=== PATIENT | male | born 1960 | race Hispanic/Latino ===

== ENCOUNTER 2017-06-12 13:15 | Inpatient (IN) | payer OTHER ==
[~2017-06-12] VITALS: Ht 165.1 cm; Wt 83.0 kg
--- NOTE | 2017-06-12 14:37 | Diagnostic Imaging Report ---
PROCEDURE: Frontal and lateral views of the chest. COMPARISON: None. INDICATIONS: SOB, PLEURAL EFFUSION, PLATE LIKE ATELACTASIS FINDINGS: Lines/tubes: None. Lungs: Mild prominence of the pulmonary vasculature. Bibasilar subsegmental atelectasis. Pleura: There is no pneumothorax. Bilateral pleural effusions. Heart and mediastinum: The cardiac silhouette is nonenlarged. Bones: No acute bony abnormality. IMPRESSION: 1. Bilateral small pleural effusions. 2. Mild bilateral pulmonary venous congestion. Amrita Yuan M.D. Dictated by: Amrita Yuan M.D. on 06/12/2017 at 14:45 Electronically approved by: Amrita Yuan M.D. on 06/12/2017 at 14:45
[2017-06-12 14:51] LABS: BASOPHILS # (AUTO) 0.1 (0.0-0.1); BASOPHILS % 0.7 % (0.0-1.0); EOSINOPHILS # (AUTO) 0.1 (0.0-0.4); EOSINOPHILS % 1.1 % (0.0-6.0); HEMATOCRIT 45.7 % (38.2-49.6); HEMOGLOBIN 16.2 g/dL (14.0-18.0); LYMPHOCYTES % 21.7 % (18.0-39.1); MEAN CORPUSCULAR HEMOGLOBIN 32.8 pg (28-32); MEAN CORPUSCULAR HGB CONC 35.4 g/dL (31-35); MEAN CORPUSCULAR VOLUME 92.5 fL (81-99); MONOCYTES # (AUTO) 0.6 (0.2-0.8); MONOCYTES % 6.7 % (4.4-11.3); NEUTROPHILS # (AUTO) 6.4 (2.1-6.9); NEUTROPHILS % 69.5 % (38.7-80.0); PLATELET COUNT 279 x10e3/uL (140-360); RED BLOOD COUNT 4.94 x10e6/uL (4.3-5.7); RED CELL DISTRIBUTION WIDTH 12.5 % (11.7-14.4)
[2017-06-12 14:58] LABS: INR 0.98; PROTHROMBIN TIME 13.5 seconds (11.9-14.5)
[2017-06-12 14:59] LABS: PARTIAL THROMBOPLASTIN TIME 33.5 seconds (23.8-35.5)
[2017-06-12 15:05] LABS: ALANINE AMINOTRANSFERASE 44 IU/L (0-55); ALBUMIN 3.5 g/dL (3.5-5.0); ALBUMIN/GLOBULIN RATIO 0.7 (0.8-2.0); ALKALINE PHOSPHATASE 70 IU/L (40-150); ANION GAP 16.3 mmol/L (8-16); BLOOD UREA NITROGEN 25 mg/dL (7-26); BUN/CREATININE RATIO 21 (6-25); CALCIUM 9.7 mg/dL (8.4-10.2); CARBON DIOXIDE 25 mmol/L (22-29); CHLORIDE 97 mmol/L (98-107); CREATINE KINASE 82 IU/L (30-200); CREATININE, SERUM 1.17 mg/dL (0.72-1.25); EST GLOMERULAR FILTRATION RATE > 60 ML/MIN (60-); GLUCOSE 264 mg/dL (74-118); POTASSIUM 4.3 mmol/L (3.5-5.1); SODIUM 134 mmol/L (136-145)
[2017-06-12 15:17] LABS: TROPONIN I 18.285 ng/mL (0-0.300)
[2017-06-12] MEDS ORDERED: ENOXAPARIN SODIUM INJ 100 MG/ML SYR SC STA (16:15)
[2017-06-12] MEDS ORDERED: ENOXAPARIN SODIUM INJ 100 MG/ML SYR SC SCH (17:15)
[2017-06-12] MEDS ORDERED: FUROSEMIDE INJ 10 MG/ML 4 ML VIAL IV ONE (17:15)
[2017-06-12] MEDS ORDERED: METFORMIN HCL500 MG PO (18:28)
[2017-06-12] MEDS ORDERED: GLYBURIDE5 MG PO (18:45)
[2017-06-12] MEDS ORDERED: ASPIRIN 81 MG CHEW TAB PO ONE (19:30)
[2017-06-12 20:24] LABS: FREE THYROXINE INDEX 2.7108 (1.4-3.8); THYROID STIMULATING HORMONE 2.942 uIU/mL (0.350-4.940)
[2017-06-12] MEDS ORDERED: METOLAZONE 5 MG TAB PO ONE (20:30)
[2017-06-12] MEDS ORDERED: FUROSEMIDE INJ 10 MG/ML 2 ML VIAL IV ONE (20:30)
[2017-06-12] MEDS ORDERED: POTASSIUM CHLORIDE 20 MEQ TAB CR PO ONE (20:30)
[2017-06-12 22:45] LABS: CREATINE KINASE MB 2.4 ng/mL (0.00-5.00)
[2017-06-12 22:48] LABS: TROPONIN I 22.834 ng/mL (0-0.300)
[2017-06-13 06:11] LABS: ANION GAP 15.9 mmol/L (8-16); BLOOD UREA NITROGEN 23 mg/dL (7-26); BUN/CREATININE RATIO 24 (6-25); CARBON DIOXIDE 25 mmol/L (22-29); CHLORIDE 99 mmol/L (98-107); CHOL/HDL RATIO 8.4 (3.9-4.7); CHOLESTEROL 202 MD/DL (0-199); CREATINE KINASE 78 IU/L (30-200); CREATININE, SERUM 0.96 mg/dL (0.72-1.25); EST GLOMERULAR FILTRATION RATE > 60 ML/MIN (60-); GLUCOSE 135 mg/dL (74-118); HDL CHOLESTEROL 24 MG/DL (40-60); LDL CHOLESTEROL 142 MG/DL (60-130); POTASSIUM 3.9 mmol/L (3.5-5.1); SODIUM 136 mmol/L (136-145); TRIGLYCERIDES 181 MG/DL (0-149)
[2017-06-13 06:24] LABS: TROPONIN I 24.162 ng/mL (0-0.300)
[2017-06-13] MEDS: ENOXAPARIN INJ 80 MG/0.8 ML SYR SC SCH ×2 (06:48→19:03)
--- NOTE | 2017-06-13 07:51 | Diagnostic Imaging Report ---
PROCEDURE: Frontal and lateral views of the chest. COMPARISON: Chest 2 views 06/12/2017. INDICATIONS: SHORTNESS OF BREATH FINDINGS: Lines/tubes: None. Lungs: Bibasilar airspace opacities. No parenchymal mass. Pleura: Small bilateral pleural effusions. No pneumothorax. Heart and mediastinum: The heart and the mediastinum are normal. Bones: No acute bony abnormality. Degenerative changes of the thoracic spine. IMPRESSION: Bibasilar airspace opacities likely represent a developing pneumonia. Dictated by: Rajesh Ramirez M.D. on 06/13/2017 at 8:00 Electronically approved by: Rajesh Ramirez M.D. on 06/13/2017 at 8:00
[2017-06-13 08:04] VITALS: BP 102/72
--- NOTE | 2017-06-13 08:14 | Consultation ---
DATE OF CONSULTATION: June 12, 2017 CLINICAL HISTORY: This is a 56-year-old man, seen in the emergency room at [facility] because of congestive heart failure, elevated troponin of 18 without chest pains. This patient has no previous cardiac history. Approximately 5 days ago, he noticed severe dyspnea with exertion orthopnea, PND, but no chest pains. He failed to improve, so he came to the emergency room, was found to have congestive heart failure. Troponin I was 18. EKG showed sinus tachycardia around 118 beats per minute, nonspecific ST changes. CK and CK-MB were negative. Chest x-ray showed bilateral small pleural effusions. Patient is being admitted for further evaluation and treatment. PAST MEDICAL HISTORY: Remarkable for absence of surgeries or other hospitalizations. He has history of diabetes, but no hypertension or hyperlipidemia. He is on glyburide and metformin at home. PERSONAL AND SOCIAL HISTORY: He drinks approximately 64 ounces of beer per day. Denies smoking. Works in construction. FAMILY HISTORY: Significant for diabetes. REVIEW OF SYSTEMS: Noncontributory. PHYSICAL EXAMINATION GENERAL: He is alert and coherent. VITAL SIGNS: Stable. CARDIAC: Jugular veins are not distended. S1 and S2 are regular and rapid. LUNGS: Show bilateral rales. ABDOMEN: Soft. Bowel sounds are present. EXTREMITIES: Show 1+ pitting edema. LABORATORY STUDIES: The white count is 9,200, hemoglobin 15.2, platelet count is 279,000. Electrolytes are sodium 134, potassium 4.3, BUN 25, creatinine 1.1. Total bilirubin 1.6, SGOT 45. Troponin 18.2. CK/CK-MB normal. BNP 1352. Albumin is 3.5. IMPRESSION 1. Congestive heart failure of undetermined etiology. 2. Troponin of 18. Consider myocarditis including viral and alcoholic. Consider non-ST elevation myocardial infarction. 3. Diabetes. 4. Alcoholism. RECOMMENDATIONS: Discontinue alcohol. Diuresis. Serial enzymes, EKG, echocardiogram. Consider cardiac catheterization. Thank you very much. Job#: [id number] GE cc:MP CARRERO MD
[2017-06-13] MEDS ORDERED: LISINOPRIL 10 MG TAB PO SCH (09:00)
[2017-06-13] MEDS ORDERED: DEXTROSE 50% SYRINGE 50 ML IV PRN (09:00)
[2017-06-13] MEDS ORDERED: METOLAZONE 5 MG TAB PO ONE (09:15)
[2017-06-13] MEDS: METOPROLOL TARTRATE 25 MG TAB PO SCH ×2 (09:37→20:30)
[2017-06-13] MEDS: FUROSEMIDE 40 MG TAB PO SCH (09:37)
[2017-06-13] MEDS: ASPIRIN 325 MG TAB EC PO SCH (09:37)
--- NOTE | 2017-06-13 09:45 | Cardiology Report ---
DATE OF STUDY: ECHOCARDIOGRAM M-MODE: Dilated left atrium. Dilated left ventricle. Diminished left ventricular contractility. Aortic sclerosis. Normal mitral valve. No pericardial effusion. SECTOR SCAN: Dilated left atrium and left ventricle severely diminished left ventricular contractility. Ejection fraction is approximately 20%. Aortic valve sclerotic. Mitral and tricuspid valves are normal. There is no pericardial effusion. CAROTID DOPPLER STUDY WITH COLOR: Trace tricuspid regurgitation. CONCLUSIONS 1. Dilated left ventricle with severely diminished left ventricular contractility. Estimated ejection fraction 20%. 2. Trace mitral regurgitation with dilated left atrium. 3. Trace tricuspid regurgitation. 4. Aortic sclerosis without stenosis. Job#: [id number] RI cc:MP CARRERO MD
[2017-06-13] MEDS ORDERED: CHLORDIAZEPOXIDE HCL 25 MG CAP PO PRN (11:15)
--- NOTE | 2017-06-13 12:14 | History and Physical ---
PRIMARY CARE PROVIDER: Local clinic near [facility]. CHIEF COMPLAINT: Shortness of breath. HISTORY OF PRESENT ILLNESS: Mr. Shields is a 56-year-old gentleman who presents with approximately a week of increasing shortness of breath, dyspnea with exertion and orthopnea, and paroxysmal nocturnal dyspnea. The patient has a history of diabetes only. He was diagnosed a year ago but has not taken any medication. He saw his doctor a week ago and was started on glyburide and metformin, which has made him feel bad. He has had progressive shortness of breath over the past week. He went to the clinic again and they sent him to the ER for evaluation. REVIEW OF SYSTEMS: He denies fever, chills, or weight loss. He denies sinus congestion or sore throat. He denies any chest pain, but has had shortness of breath, dyspnea with exertion, and orthopnea. He denies abdominal pain, nausea, vomiting, or melena. He denies dysuria or flank pain. He denies rash or pruritus. He denies joint pain or swelling. He denies bleeding or bruising. He denies headache, vertigo, or loss of consciousness. He denies depression, agitation, homicide or suicidal ideation. PAST MEDICAL HISTORY: Significant for type 2 diabetes as noted. The patient is supposed to be on glyburide and metformin for that. PAST SURGICAL HISTORY: He has no surgical history. He has never been in the hospital before today. FAMILY HISTORY: Unremarkable. He has some scattered diabetes in his family. He denies premature heart disease. SOCIAL HISTORY: The patient is . He is bilingual. Speaks good Swazi. He works in construction remodeling. He does not smoke but he drinks daily, 64 ounces of beer on average. He is generally independently functioning. PHYSICAL EXAM: PSYCHIATRIC: He is alert oriented times 3, with normal mood and affect. CONSTITUTIONAL: He has a normal body habitus. He is in no acute distress. VITAL SIGNS: Blood pressure 102/72. Pulse 80 and regular. Respiratory rate 18. O2 sat 96% on room air. Temperature 97.8. HEENT: His head is atraumatic. His eyes are anicteric with clear conjunctivae. Ears and nares are without erythema or discharge. Oropharynx is clear. NECK: Is supple. No mass or thyromegaly. LYMPHATIC SYSTEM: He has no palpable cervical, axillary, or inguinal adenopathy. CARDIOVASCULAR: His heart has a regular rate rhythm without murmur or extra sounds. He has no carotid bruit. He has no peripheral edema. He has palpable dorsal pedal pulses. RESPIRATORY: Reveal some diminished breath sounds and some rales at the bases. Otherwise clear with normal respiratory effort. GASTROINTESTINAL: His abdomen is soft without organomegaly, masses, or tenderness. He has normal bowel sounds present. CUTANEOUS: His skin is warm and dry to touch. No rash or skin breakdown. MUSCULOSKELETAL: His joints are in normal alignment without erythema or swelling. He has no calf tenderness. NEUROLOGIC: Exam is nonfocal with intact cranial nerves and no motor or sensory deficits. DIAGNOSTIC STUDIES: Chest x-ray yesterday showed mild pulmonary vascular congestion and bilateral small effusions. Today, the chest x-ray shows bibasilar air-space opacities, possible developing pneumonia. His echocardiogram today showed an ejection fraction of 25% to 30% with a dilated left ventricle and left atrial enlargement. His EKG shows sinus tach with some nonspecific lateral ST-T wave changes. His troponin 18.285, then 22.834, then 24.162. His BNP 1,352.2. Ammonia level 44. His cholesterol 202, HDL 24, LDL 142, triglyceride 181. His chemistry profile showed normal electrolytes, CO2 25, creatinine 1.17, BUN 25 for a normal GFR, calcium 9.7, glucose 264. His TSH 2.942, free T4 2.710. His transaminases: his bilirubin and AST are slightly elevated at 1.6 and 45; ALT normal at 44; alk phos normal at 70. His CBC shows a white count of 9.20 with a normal differential, hemoglobin 16.2, hematocrit 45.7, and platelet count 279 thousand. His coags are normal. IMPRESSION AND PLAN: 1. Acute [id number] myocardial infarction. Patient has been given aspirin, started on metoprolol, low-dose lisinopril, and Lipitor. Cardiology has been consulted and is planning for a left heart cath on Friday. 2. Decompensated [id number] systolic heart failure, based on his echocardiogram. The patient has received Lasix x2, started on Lasix daily. He is getting oxygen. Cardiology has been consulted, possibly either ischemic or viral or even potentially alcohol-induced cardiomyopathy. 3. Type 2 diabetes. At the moment, will continue sliding scale insulin. Hold oral medication for now. 4. Alcoholism. Will give p.r.n. p.o. Librium if the patient develops withdrawal symptoms. 5. For prophylaxis, the patient is on weight-based Lovenox and Protonix for deep vein thrombosis and gastrointestinal prophylaxis. Job#: [id number] IL
[2017-06-13] MEDS: LISINOPRIL 10 MG TAB PO SCH (13:04)
[2017-06-13] MEDS: INSULIN REGULAR, HUMAN 100 UNIT/1 ML 3ML VIAL SQ SCH ×3 (13:22→21:42)
[2017-06-13] MEDS: PANTOPRAZOLE SOD 40 MG TABEC PO SCH (13:22)
[2017-06-13] MEDS: ATORVASTATIN 20 MG TAB PO SCH (21:42)
[2017-06-14] MEDS: ENOXAPARIN INJ 80 MG/0.8 ML SYR SC SCH ×2 (05:35→18:44)
[2017-06-14 05:43] LABS: BASOPHILS # (AUTO) 0.1 (0.0-0.1); BASOPHILS % 0.8 % (0.0-1.0); EOSINOPHILS # (AUTO) 0.2 (0.0-0.4); HEMATOCRIT 41.5 % (38.2-49.6); HEMOGLOBIN 15.1 g/dL (14.0-18.0); LYMPHOCYTES # (AUTO) 2.2 (1.0-3.2); LYMPHOCYTES % 29.2 % (18.0-39.1); MEAN CORPUSCULAR HGB CONC 36.4 g/dL (31-35); MEAN CORPUSCULAR VOLUME 90.6 fL (81-99); MONOCYTES # (AUTO) 0.8 (0.2-0.8); MONOCYTES % 10.1 % (4.4-11.3); NEUTROPHILS # (AUTO) 4.4 (2.1-6.9); NEUTROPHILS % 57.6 % (38.7-80.0); PLATELET COUNT 244 x10e3/uL (140-360); RED BLOOD COUNT 4.58 x10e6/uL (4.3-5.7); RED CELL DISTRIBUTION WIDTH 12.4 % (11.7-14.4)
[2017-06-14 06:01] LABS: ANION GAP 16.8 mmol/L (8-16); BLOOD UREA NITROGEN 21 mg/dL (7-26); BUN/CREATININE RATIO 22 (6-25); CALCIUM 9.1 mg/dL (8.4-10.2); CARBON DIOXIDE 24 mmol/L (22-29); CHLORIDE 97 mmol/L (98-107); CREATININE, SERUM 0.94 mg/dL (0.72-1.25); EST GLOMERULAR FILTRATION RATE > 60 ML/MIN (60-); GLUCOSE 130 mg/dL (74-118); MAGNESIUM 1.7 MG/DL (1.3-2.1); POTASSIUM 3.8 mmol/L (3.5-5.1); SODIUM 134 mmol/L (136-145)
--- NOTE | 2017-06-14 06:49 | Diagnostic Imaging Report ---
CHEST SINGLE (PORTABLE), 06/14/2017 5:00 AM Technique: CHEST SINGLE (PORTABLE) Comparison: None available. Clinical history: CHF versus pneumonia Findings: See Impression Impression: 1. Mildly enlarged cardiac silhouette. 2. Diffuse lower lung opacities, favor edema with bibasilar atelectasis and layering effusions. Cannot exclude underlying infection in the proper clinical context. Signed by: Dr Nancy Ramos MD on 06/14/2017 6:46 AM
[2017-06-14 07:17] VITALS: BP 98/73
[2017-06-14] MEDS: INSULIN REGULAR, HUMAN 100 UNIT/1 ML 3ML VIAL SQ SCH ×4 (07:30→21:43)
[2017-06-14] MEDS: PANTOPRAZOLE SOD 40 MG TABEC PO SCH (07:30)
[2017-06-14] MEDS: ASPIRIN 325 MG TAB EC PO SCH (08:17)
[2017-06-14] MEDS: LISINOPRIL 10 MG TAB PO SCH (08:17)
[2017-06-14] MEDS: FUROSEMIDE 40 MG TAB PO SCH (08:17)
[2017-06-14] MEDS: METOPROLOL TARTRATE 25 MG TAB PO SCH ×2 (08:17→21:42)
[2017-06-14] MEDS: METOCLOPRAMIDE HCL 10 MG/2ML VIAL IV SCH ×3 (11:34→21:42)
[2017-06-14 11:42] VITALS: BP 100/71
[2017-06-14 20:21] VITALS: BP 141/66
[2017-06-14] MEDS: ATORVASTATIN 20 MG TAB PO SCH (21:43)
[2017-06-15] MEDS: ENOXAPARIN INJ 80 MG/0.8 ML SYR SC SCH ×2 (05:50→18:28)
[2017-06-15 06:26] LABS: BASOPHILS # (AUTO) 0.1 (0.0-0.1); BASOPHILS % 0.9 % (0.0-1.0); EOSINOPHILS # (AUTO) 0.2 (0.0-0.4); EOSINOPHILS % 2.4 % (0.0-6.0); HEMATOCRIT 42.1 % (38.2-49.6); HEMOGLOBIN 15.1 g/dL (14.0-18.0); LYMPHOCYTES % 26.9 % (18.0-39.1); MEAN CORPUSCULAR HEMOGLOBIN 32.5 pg (28-32); MEAN CORPUSCULAR HGB CONC 35.9 g/dL (31-35); MEAN CORPUSCULAR VOLUME 90.5 fL (81-99); MONOCYTES # (AUTO) 0.8 (0.2-0.8); MONOCYTES % 10.7 % (4.4-11.3); NEUTROPHILS # (AUTO) 4.4 (2.1-6.9); NEUTROPHILS % 58.8 % (38.7-80.0); PLATELET COUNT 253 x10e3/uL (140-360); RED BLOOD COUNT 4.65 x10e6/uL (4.3-5.7); RED CELL DISTRIBUTION WIDTH 12.1 % (11.7-14.4)
[2017-06-15 06:43] LABS: BLOOD UREA NITROGEN 19 mg/dL (7-26); BUN/CREATININE RATIO 18 (6-25); CALCIUM 9.2 mg/dL (8.4-10.2); CARBON DIOXIDE 27 mmol/L (22-29); CHLORIDE 94 mmol/L (98-107); CREATININE, SERUM 1.06 mg/dL (0.72-1.25); EST GLOMERULAR FILTRATION RATE > 60 ML/MIN (60-); GLUCOSE 105 mg/dL (74-118); SODIUM 131 mmol/L (136-145)
[2017-06-15] MEDS: INSULIN REGULAR, HUMAN 100 UNIT/1 ML 3ML VIAL SQ SCH ×4 (07:19→20:34)
[2017-06-15] MEDS: METOCLOPRAMIDE HCL 10 MG/2ML VIAL IV SCH ×2 (08:11→20:49)
[2017-06-15] MEDS: PANTOPRAZOLE SOD 40 MG TABEC PO SCH (08:12)
[2017-06-15] MEDS: FUROSEMIDE 40 MG TAB PO SCH (08:32)
[2017-06-15] MEDS: METOPROLOL TARTRATE 25 MG TAB PO SCH ×2 (08:32→20:37)
[2017-06-15] MEDS: ASPIRIN 325 MG TAB EC PO SCH (08:32)
[2017-06-15] MEDS: LISINOPRIL 10 MG TAB PO SCH (08:32)
[2017-06-15] MEDS ORDERED: LISINOPRIL 10 MG TAB PO SCH (09:00)
[2017-06-15 12:26] VITALS: BP 76/50
[2017-06-15 13:01] VITALS: BP 76/50
[2017-06-15 16:19] VITALS: BP 81/51
[2017-06-15] MEDS: SODIUM CHLORIDE 0.9% 1000ML 1,000 ML IV SCH (16:45)
[2017-06-15] MEDS: ATORVASTATIN 20 MG TAB PO SCH (20:37)
[2017-06-15 20:45] VITALS: BP 81/51
[2017-06-16] VITALS (8 sets, daily range): BP systolic 81–98; BP diastolic 50–59
[2017-06-16] MEDS: SODIUM CHLORIDE 0.9% 1000ML 1,000 ML IV SCH ×3 (01:47→16:37)
[2017-06-16] MEDS: ENOXAPARIN INJ 80 MG/0.8 ML SYR SC SCH ×2 (05:10→17:42)
[2017-06-16 06:29] LABS: BASOPHILS % 0.5 % (0.0-1.0); EOSINOPHILS # (AUTO) 0.1 (0.0-0.4); EOSINOPHILS % 1.5 % (0.0-6.0); HEMATOCRIT 38.1 % (38.2-49.6); HEMOGLOBIN 13.9 g/dL (14.0-18.0); LYMPHOCYTES # (AUTO) 1.8 (1.0-3.2); LYMPHOCYTES % 21.3 % (18.0-39.1); MEAN CORPUSCULAR HEMOGLOBIN 32.7 pg (28-32); MEAN CORPUSCULAR HGB CONC 36.5 g/dL (31-35); MEAN CORPUSCULAR VOLUME 89.6 fL (81-99); MONOCYTES # (AUTO) 0.7 (0.2-0.8); MONOCYTES % 8.7 % (4.4-11.3); NEUTROPHILS # (AUTO) 5.7 (2.1-6.9); NEUTROPHILS % 67.6 % (38.7-80.0); PLATELET COUNT 254 x10e3/uL (140-360); RED BLOOD COUNT 4.25 x10e6/uL (4.3-5.7); RED CELL DISTRIBUTION WIDTH 12.1 % (11.7-14.4)
[2017-06-16 06:49] LABS: CALCIUM 8.8 mg/dL (8.4-10.2); CREATININE, SERUM 1.82 mg/dL (0.72-1.25); MAGNESIUM 2.1 MG/DL (1.3-2.1)
[2017-06-16] MEDS: INSULIN REGULAR, HUMAN 100 UNIT/1 ML 3ML VIAL SQ SCH ×4 (07:30→21:00)
[2017-06-16] MEDS ORDERED: LIDOCAINE HCL 2% LOCAL 20 ML VIAL ONE (07:32)
[2017-06-16] MEDS ORDERED: HEPARIN SOD (PORCINE) 1000 UNIT/ML 30ML ONE (07:32)
[2017-06-16] MEDS ORDERED: IOPAMIDOL 370 MG/ML 200 ML INFUS..BTL INJ ONE (07:33)
[2017-06-16] MEDS ORDERED: SODIUM CHLORIDE 0.9% 1000ML 0 ML ONE (07:33)
[2017-06-16] MEDS ORDERED: HEPARIN SOD/SOD CHLORIDE 2,000 ML ONE (07:33)
[2017-06-16] MEDS ORDERED: NITROGLYCERIN/D5W 200 MCG/ML 0 ML ONE (07:33)
[2017-06-16] MEDS ORDERED: MIDAZOLAM HCL 2 MG/2 ML VIAL ONE (08:42)
[2017-06-16] MEDS ORDERED: FENTANYL CITRATE/PF 100MCG/2 ML INJ ONE (08:42)
[2017-06-16 08:53] LABS: CREATININE, SERUM 1.56 mg/dL (0.72-1.25)
[2017-06-16] MEDS ORDERED: LISINOPRIL 10 MG TAB PO SCH (09:00)
[2017-06-16] MEDS ORDERED: FUROSEMIDE 40 MG TAB PO SCH (09:00)
[2017-06-16] MEDS ORDERED: LISINOPRIL 2.5 MG TAB PO SCH (09:00)
[2017-06-16] MEDS: FUROSEMIDE 20 MG TAB PO SCH (10:20)
[2017-06-16] MEDS: METOCLOPRAMIDE HCL 10 MG/2ML VIAL IV SCH ×4 (10:20→22:07)
[2017-06-16] MEDS: ASPIRIN 325 MG TAB EC PO SCH (10:20)
[2017-06-16] MEDS: ATORVASTATIN 40 MG TAB PO SCH (22:07)
[2017-06-16] MEDS: METOPROLOL TARTRATE 25 MG TAB PO SCH (22:08)
[2017-06-17] VITALS (7 sets, daily range): BP systolic 93–118; BP diastolic 57–64
--- NOTE | 2017-06-17 02:27 | Consultation ---
DATE OF CONSULTATION: June 16, 2017 DATE OF : 1960 REQUESTING PHYSICIAN: Dr. Evelio Pavon REASON FOR CONSULTATION: Multivessel coronary evaluation for coronary artery bypass. HISTORY OF PRESENT ILLNESS: This is a 56-year-old gentleman, who presented to the emergency room at [facility] with complaints of increased shortness of breath while at his home. He states this is the first episode of this and states that he was in his usual health prior to this episode, no cough, no wheeze. No fever, chills. No nausea, vomiting. Denies any chest pain. The patient has not had any previous coronary artery disease or any cardiac history. He states that the shortness of breath episode occurred while he was doing exertion at home. So he was brought to [facility] for further evaluation. Upon arrival, patient was found to have congestive heart failure. His presenting BNP was 13.52. He had elevated troponin of 18.2, CK-MB of 2.7, CK of 82. He was ruled in for a non-STEMI. His chest x-ray shows small bilateral effusions. He underwent a left heart catheterization with Dr. Pavon, which showed severe 3-vessel coronary artery disease. He had an echocardiogram, which showed dilated left ventricle and severely diminished left ventricular contraction with an EF of 20%. Trace mitral regurg with a dilated left atrium, trace tricuspid regurg, and aortic sclerosis was noted. The patient reports he said he was told he was diabetic a few years ago. Denies taking any medication for this. He does have family history of diabetes. States that he works construction and has been in his usual state of health prior to this episode 5 days ago before his admission. PAST MEDICAL HISTORY: Positive for diabetes for which he stopped his medication. PAST SURGICAL HISTORY: Denies any surgical history. This is the 1st hospitalization. FAMILY HISTORY: Positive for some diabetes in both parents. SOCIAL HISTORY: He lives with his family. He does report alcohol daily, 2 to 3 beers. Denies any smoking. 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 REVIEW OF SYSTEMS GENERAL: Negative for any fatigue or malaise. HEENT: No decreased vision, decreased hearing. CARDIAC: Negative for any chest pain or palpitations. RESPIRATORY: Positive for shortness of breath upon admission. Shortness of breath was worse with exertion, relieved with rest. Not associated with palpitations or radiation. GI: No constipation or diarrhea. : No hematuria, dysuria. ENDOCRINE: No polyuria or polydipsia. INFECTIOUS: No fevers or sweating. ALL OTHER REVIEW OF SYSTEMS: Negative. PHYSICAL EXAM VITALS: Blood pressure 85/50. Temperature 98.2. Respirations 16. Pulse 80. GENERAL: He is alert and oriented. No acute distress. Son is at bedside. HEENT: Extraocular movements are full. Mucous membranes moist. NECK: Supple, nontender. No JVD. CARDIAC: Regular rate and rhythm. Normal S1/S2. No murmur noted. LUNGS: Decreased breath sounds at the bases. No crackles or wheeze. ABDOMEN: Soft, nontender. No hepatosplenomegaly. SKIN: No rashes or nonhealing ulcers. MUSCULOSKELETAL: No joint pain or joint swelling. Appears full range of motion in all joints. NEUROLOGIC: He is alert and oriented. Normal affect. IMAGING: Recent chest x-ray shows diffuse lower lung bibasilar atelectasis with possible effusions. LAB WORK: Hemoglobin A1c is 7.4. BNP is trending downwards from 1352 to 630. His troponin-I 18.25, repeat 24.16. His sodium 134, potassium 4.00, BUN is 34, creatinine is 15.6. AST 45, ALT is 44, alk phos 70. White count 9.2, hemoglobin 16.2, hematocrit 45.7, platelet count 279,000. Cardiac catheterization as noted showed a 99% to 100% RCA, with 100% distal occlusion collaterals, a 99% to 100% LAD, and a 90% circ with history 70% mid circ, with an occluded OM. ASSESSMENT 1. Congestive heart failure with ejection fraction of 20% with elevated B-type natriuretic peptide upon admission. Small bilateral pleural effusions. 2. Multivessel coronary artery disease. 3. Non-ST segment elevation myocardial infarction. 4. Diabetes, noncompliant. PLAN: Had a long discussion with the patient and his son regarding his multivessel coronary artery disease and his congestive heart failure. Discussed the high risk for coronary event and the need for coronary artery bypass. Will obtain carotid Dopplers for further assessment of his risk factors, and further recommendations to follow. GARRET Johnson Pt seen & examined. I agree with the above note,. 56 yo diabetic man admitted with IL by Dr Sandy. Had about 1 week of MELGAR, PND & orthopnea but no previous symptoms. Cardiac enzymes elevated on admission. Echo showed EF about 20%. Cath by Dr Pavon showed severe 3 vessel CAD. Physical exam as above. CABG discussed with pt & family. They are considering options. -Demarcus Jason MD Job#: [id number] CQ MTDD
[2017-06-17] MEDS: ENOXAPARIN INJ 80 MG/0.8 ML SYR SC SCH ×2 (05:31→18:00)
[2017-06-17 06:42] LABS: BASOPHILS % 0.4 % (0.0-1.0); EOSINOPHILS # (AUTO) 0.2 (0.0-0.4); EOSINOPHILS % 2.1 % (0.0-6.0); HEMATOCRIT 37.4 % (38.2-49.6); HEMOGLOBIN 13.4 g/dL (14.0-18.0); LYMPHOCYTES # (AUTO) 2.1 (1.0-3.2); LYMPHOCYTES % 25.8 % (18.0-39.1); MEAN CORPUSCULAR HEMOGLOBIN 32.9 pg (28-32); MEAN CORPUSCULAR HGB CONC 35.8 g/dL (31-35); MEAN CORPUSCULAR VOLUME 91.9 fL (81-99); MONOCYTES # (AUTO) 0.9 (0.2-0.8); MONOCYTES % 10.8 % (4.4-11.3); NEUTROPHILS # (AUTO) 4.9 (2.1-6.9); NEUTROPHILS % 60.7 % (38.7-80.0); PLATELET COUNT 228 x10e3/uL (140-360); RED BLOOD COUNT 4.07 x10e6/uL (4.3-5.7); RED CELL DISTRIBUTION WIDTH 11.9 % (11.7-14.4)
[2017-06-17 07:06] LABS: ANION GAP 16.2 mmol/L (8-16); BLOOD UREA NITROGEN 26 mg/dL (7-26); BUN/CREATININE RATIO 26 (6-25); CARBON DIOXIDE 24 mmol/L (22-29); CHLORIDE 99 mmol/L (98-107); EST GLOMERULAR FILTRATION RATE > 60 ML/MIN (60-); GLUCOSE 97 mg/dL (74-118); POTASSIUM 4.2 mmol/L (3.5-5.1); SODIUM 135 mmol/L (136-145)
[2017-06-17] MEDS: INSULIN REGULAR, HUMAN 100 UNIT/1 ML 3ML VIAL SQ SCH ×4 (07:30→21:00)
[2017-06-17] MEDS: METOCLOPRAMIDE HCL 10 MG/2ML VIAL IV SCH ×4 (09:00→21:00)
[2017-06-17] MEDS: METOPROLOL TARTRATE 25 MG TAB PO SCH ×2 (10:00→21:23)
[2017-06-17] MEDS: FUROSEMIDE 20 MG TAB PO SCH (10:00)
[2017-06-17] MEDS: ASPIRIN 325 MG TAB EC PO SCH (10:00)
--- NOTE | 2017-06-17 10:27 | Cardiology Report ---
DATE OF STUDY: DOPPLER SCAN OF THE CAROTID Left carotid artery shows moderate intimal thickening and plaquing without high-grade stenosis or flow impairment. Left vertebral flow appears to be antegrade. Right carotid artery shows mild intimal thickening and plaquing without high-grade stenosis or flow impairment. Right vertebral flow appears to be antegrade. CONCLUSIONS 1. No high-grade stenosis bilaterally. 2. Moderate intimal thickening and plaquing bilaterally. 3. Vertebral flow appears to be normal direction bilaterally. Job#: [id number] RI cc:MD MP VALLES MD
[2017-06-17] MEDS: ATORVASTATIN 40 MG TAB PO SCH (21:22)
[2017-06-18] VITALS: BP 111/57
--- NOTE | 2017-06-18 00:02 | Progress Note ---
DATE: June 17, 2017 REASON FOR NOTE: Coronary artery disease. SUBJECTIVE: Patient sitting up in bed and breathing comfortably. Some minimal dyspnea. No chest pain. OBJECTIVE: VITAL SIGNS: Blood pressure 130/70, pulse 80 and regular, respirations 16 and unlabored. NECK: Supple and nontender. No JVD. CARDIAC: Shows a regular rate and rhythm. There is a normal S1 and S2. There is no S3, S4, rub, or murmur. LUNGS: Have some scattered crackles bilaterally. ABDOMEN: Globoid and benign. Good bowel sounds. No hepatosplenomegaly. BACK: No CVA tenderness. No muscular spasm. EXTREMITIES: No cyanosis, clubbing, or edema. REVIEW OF SYSTEMS: GENERAL: Negative for fatigue and malaise. CARDIAC: Negative for chest pain or palpitations. PULMONARY: Positive for some slight shortness of breath. No wheezing. Positive for PND and orthopnea. GI: Negative for change in bowel habits, constipation, or diarrhea. : Negative for hematuria or dysuria. EXTREMITIES: Negative for cyanosis or clubbing. LABORATORIES: White count 8.5, hemoglobin 13.4, hematocrit 37.4, platelet count 228,000. INR is 0.98. Sodium 135, creatinine 1.00. Carotid Doppler performed June 16 does not show any high-grade stenoses. IMPRESSION: Recovering after myocardial infarction. I had a long discussion with the patient, his , his son and his daughter concerning coronary artery bypass grafting. I described the operation to them as well as its risks. They are considering their options. They are leaning towards transfer to [facility] for bypass grafting, but will make their mind up overnight. Job#: [id number]
[2017-06-18 01:08] VITALS: BP 111/57
[2017-06-18 04:00] VITALS: BP 112/60
[2017-06-18] MEDS: ENOXAPARIN INJ 80 MG/0.8 ML SYR SC SCH (05:17)
[2017-06-18 07:01] LABS: BASOPHILS % 0.5 % (0.0-1.0); EOSINOPHILS # (AUTO) 0.2 (0.0-0.4); EOSINOPHILS % 2.2 % (0.0-6.0); HEMATOCRIT 35.7 % (38.2-49.6); HEMOGLOBIN 12.8 g/dL (14.0-18.0); LYMPHOCYTES # (AUTO) 1.9 (1.0-3.2); LYMPHOCYTES % 25.9 % (18.0-39.1); MEAN CORPUSCULAR HEMOGLOBIN 32.7 pg (28-32); MEAN CORPUSCULAR HGB CONC 35.9 g/dL (31-35); MEAN CORPUSCULAR VOLUME 91.3 fL (81-99); MONOCYTES # (AUTO) 0.9 (0.2-0.8); MONOCYTES % 11.9 % (4.4-11.3); NEUTROPHILS # (AUTO) 4.3 (2.1-6.9); NEUTROPHILS % 59.2 % (38.7-80.0); PLATELET COUNT 233 x10e3/uL (140-360); RED BLOOD COUNT 3.91 x10e6/uL (4.3-5.7); RED CELL DISTRIBUTION WIDTH 12.1 % (11.7-14.4)
[2017-06-18 07:22] LABS: BLOOD UREA NITROGEN 22 mg/dL (7-26); BUN/CREATININE RATIO 26 (6-25); CARBON DIOXIDE 26 mmol/L (22-29); CHLORIDE 100 mmol/L (98-107); CREATININE, SERUM 0.86 mg/dL (0.72-1.25); EST GLOMERULAR FILTRATION RATE > 60 ML/MIN (60-); GLUCOSE 105 mg/dL (74-118); SODIUM 136 mmol/L (136-145)
[2017-06-18] MEDS: INSULIN REGULAR, HUMAN 100 UNIT/1 ML 3ML VIAL SQ SCH ×2 (07:30→11:30)
[2017-06-18 07:40] VITALS: BP 112/60
[2017-06-18] MEDS: ASPIRIN 325 MG TAB EC PO SCH (08:04)
[2017-06-18] MEDS: METOPROLOL TARTRATE 25 MG TAB PO SCH (08:04)
[2017-06-18] MEDS: FUROSEMIDE 20 MG TAB PO SCH (08:04)
[2017-06-18] MEDS: METOCLOPRAMIDE HCL 10 MG/2ML VIAL IV SCH ×2 (08:04→11:53)
[2017-06-18 08:52] VITALS: BP 101/65
[2017-06-18 12:11] VITALS: BP 93/54
[2017-06-18] MEDS ORDERED: METOCLOPRAMIDE HCL 10 MG/2ML VIAL IV PRN (13:15)
== END 2017-06-18 15:25 | disposition short-term general hospital (02) | DRG 280 ==
LOC: ER 13:15 → ERHOLD 17:20 → MED/SURG 06-15 11:52
PROVIDERS: ADMIT Internal Medicine; ATTEND Internal Medicine
PROC: 4A023N7 Measurement of Cardiac Sampling and Pressure, Left Heart, Percutaneous Approach (ICD-10-PCS; principal; 2017-06-16)
PROC: B2111ZZ Fluoroscopy of Multiple Coronary Arteries using Low Osmolar Contrast (ICD-10-PCS; 2017-06-16)
DX: I21.4 Non-ST elevation (NSTEMI) myocardial infarction (principal); I50.23 Acute on chronic systolic (congestive) heart failure; N17.9 Acute kidney failure, unspecified; I43 Cardiomyopathy in diseases classified elsewhere; E87.1 Hypo-osmolality and hyponatremia; E86.0 Dehydration; I25.10 Atherosclerotic heart disease of native coronary artery without angina pectoris; F10.20 Alcohol dependence, uncomplicated; E11.9 Type 2 diabetes mellitus without complications; Z91.14 Patient's other noncompliance with medication regimen; I11.0 Hypertensive heart disease with heart failure
CPT/HCPCS: 36140; 36415; 71045; 71046; 77002; 80048; 80053; 80061; 82140; 82270; 82550; 82553; 82565; 82948; 83036; 83735; 83880; 84436; 84443; 84479; 84484; 84520; 85025; 85379; 85610; 85730; 86039; 93005; 93306; 93458; 93880; 96372; 96374; 99285; C1766; J1644; J1650; J1940; J2001; J2250; J2765; J7030; Q9967

== ENCOUNTER 2017-07-02 21:09 | Emergency (ER) | payer OTHER ==
[~2017-07-02] VITALS: Ht 165.1 cm; Wt 83.0 kg
[~2017-07-02 21:09] MED LIST: GLYBURIDE5 MG PO; METFORMIN HCL500 MG PO
--- OUTSIDE RECORDS SUMMARY | 2017-07-02 21:12 | XMS REPORT | Clinical Summary ---
Author Author [facility] [place] Address Unknown Phone Unavailable Care Team Providers Care Quality Assurance Supervisor Chassis Name Role Phone PCP Unavailable Allergies No Known Allergies Current Medications Prescription Sig. Disp. Refills Start End Date Status Date INSULIN REGULAR HUMAN Inject subcutaneously Active SUBQ QAC/HS . metFORMIN (GLUCOPHAGE) Take 1,000 mg by mouth 2 Active 1000 MG tablet (two) times daily with breakfast and dinner. GLYBURIDE ORAL Take 2.5 mg by mouth Active daily. aspirin 81 MG EC tablet Take 1 tablet (81 mg 30 tablet 0 06/27/19 Active total) by mouth daily for 18 18 30 days. atorvastatin (LIPITOR) 40 Take 1 tablet (40 mg 30 tablet 0 06/26/19 07/27/19 Active MG tablet total) by mouth daily for 18 18 30 days. acetaminophen-codeine Take 1 tablet by mouth 30 tablet 0 06/26/19 Active (TYLENOL #3) 300-30 mg every 4 (four) hours as 18 18 per tablet needed for up to 10 days. Max Daily Amount: 6 tablets furosemide (LASIX) 20 MG Take 1 tablet (20 mg 20 tablet 0 06/26/19 Active tablet total) by mouth 2 (two) 18 times daily. metoprolol (LOPRESSOR) 25 Take 0.5 tablets (12.5 mg 30 tablet 0 07/27/19 Active MG tablet total) by mouth 2 (two) 18 18 times daily for 30 days. BLOOD GLUCOSE TEST STRIPS 1 strip by Miscellaneous 60 strip 0 Active Strp route 2 (two) times 18 daily. miscellaneous medical Glucose meter. 1 each 0 06/26/19 Active supply Mis 18 lancets (LANCETS MISC.) Use to check BS twice a 60 each 0 06/26/19 Active Misc day. 18 enoxaparin (LOVENOX) 80 Inject 1 mg/kg 06/26/19 Discontin mg/0.8 mL Syrg subcutaneously 2 (two) 18 ued times daily. aspirin 325 MG EC tablet Take 325 mg by mouth 06/26/19 Discontin daily. 18 ued atorvastatin (LIPITOR) 40 Take 40 mg by mouth 06/26/19 Discontin MG tablet nightly. 18 ued furosemide (LASIX) 20 MG Take 20 mg by mouth 06/26/19 Discontin tablet daily. 18 ued metoprolol (LOPRESSOR) 25 Take 12.5 mg by mouth 2 06/26/19 Discontin MG tablet (two) times daily. 18 ued Active Problems Problem Noted Date S/P coronary artery bypass graft x 2 06/26/2017 Hyperglycemia 06/22/2017 Acute respiratory insufficiency, postoperative 06/22/2017 Acute systolic heart failure (HCC) 06/21/2017 Acute respiratory failure with hypoxia (HCC) 06/21/2017 Metabolic acidosis 06/21/2017 Heart failure with reduced ejection fraction (HCC) 06/18/2017 Encounters Date Type Specialty Care Team Description 06/21/2017 Orders Only General Internal Medicine 06/20/2017 Anesthesia Dayday Blum MD Event 06/20/2017 Procedure Pass 06/20/2017 Surgery Marcus Jason, BYPASS,AORTO CORONARY ZEUS/SVG 06/18/2017 [facility] Cardiology Marcus Jason, S/P coronary artery - Encounter MD bypass graft x 2 (Primary 06/26/2017 Dx);Acute systolic heart failure (HCC);Coronary artery disease involving menominee coronary artery of menominee heart with unstable angina pectoris (HCC);Acute respiratory insufficiency, postoperative;Hyperglycem ia;Coronary artery disease involving coronary bypass graft of menominee heart without angina pectoris after 07/01/2016 Family History Medical History Relation Name Comments No Known Problem Father No Known Problem Mother Relation Name Status Comments Father Mother Alive Social History Tobacco Use Types Packs/Day Years Used Date Never Smoker Smokeless Tobacco: Never Used Alcohol Use Drinks/Week oz/Week Comments Yes 35 Cans of 21.0 beer Sex Assigned at Date Recorded Not on file Last Filed Vital Signs Vital Sign Reading Time Taken Blood Pressure 98/68 06/26/2017 11:40 AM CONTINUOUS MINING OPERATOR Pulse 87 06/26/2017 11:40 AM CONTINUOUS MINING OPERATOR Temperature 36.7 C (98 F) 06/26/2017 11:40 AM CONTINUOUS MINING OPERATOR Respiratory Rate 20 06/26/2017 11:40 AM CONTINUOUS MINING OPERATOR Oxygen Saturation 97% 06/26/2017 11:40 AM CONTINUOUS MINING OPERATOR Inhaled Oxygen - - Concentration Weight 77.4 kg (170 lb 11.2 oz) 06/25/2017 10:51 AM CONTINUOUS MINING OPERATOR Height 165.1 cm (5' 5") 06/18/2017 4:33 PM CONTINUOUS MINING OPERATOR Body Mass Index 28.41 06/25/2017 10:51 AM CONTINUOUS MINING OPERATOR Plan of Treatment Date Type Specialty Care Team Description 07/09/2017 Office Visit Cardiology Gisele Cross, PLACIDO [address] Outpatient clinic, [place] [address] [place] [id number] Implants Implanted Type Area Kiln Transfer Operator Device Expiration Model / Identifier Date Serial / Lot Sternal Zipfix Ndl Strl Cardiovasc Chest SYNTHES:SYNTHES 02/15/2022 [id number] - Sx [facility] .20S / Implanted: Qty: 2 on 06/20/2017 by Mauro / Marcus Jason MD [id number] Procedures Procedure Name Priority Date/Time Associated Diagnosis Comments ENDOSCOPIC HARVEST,VEIN 06/20/2017 CAOD 3:05 PM CONTINUOUS MINING OPERATOR BYPASS,AORTO CORONARY 06/20/2017 CAOD ZEUS/SVG 3:05 PM CONTINUOUS MINING OPERATOR after 07/01/2016 Results * RHYTHM STRIP - SCAN (06/30/2017 12:11 PM) Only the most recent of 2 results within the time period is included. * EKG-SCANNED (06/27/2017 10:01 AM) * POC-Glucose meter (06/26/2017 9:12 AM) Only the most recent of 37 results within the time period is included. Component Value Ref Range POC-Glucose Meter 122 (H)Comment: TESTED AT [address] 70 - 110 mg /dL [facility] [id number] Specimen Performing Laboratory Blood [facility] [address] [address] * ECHOCARDIOGRAM REPORT - SCAN (06/26/2017 7:20 AM) Only the most recent of 2 results within the time period is included. * EKG 12 lead (06/26/2017 7:01 AM) Only the most recent of 6 results within the time period is included. Specimen Performing Laboratory [facility] Narrative Ventricular Rate 87 BPM Atrial Rate 87 BPM P-R Interval 138 ms QRS Duration 100 ms Q-T Interval 408 ms QTC Calculation(Bazett) 490 ms P [place] 41 degrees R [place] 42 degrees T [place] 183 degrees Normal sinus rhythm Low voltage QRS Anterior infarct (cited on or before 18-JUN-2017) Abnormal ECG When compared with ECG of 25-JUN-2017 06:34, Significant changes have occurred Confirmed by MD Valladares Roberto ([id number]) on 06/26/2017 2:11:12 PM Procedure Note Interface, External Ris In - 06/26/2017 2:11 PM CONTINUOUS MINING OPERATOR Ventricular Rate 87 BPM Atrial Rate 87 BPM P-R Interval 138 ms QRS Duration 100 ms Q-T Interval 408 ms QTC Calculation(Bazett) 490 ms P [place] 41 degrees R [place] 42 degrees T [place] 183 degrees Normal sinus rhythm Low voltage QRS Anterior infarct (cited on or before 18-JUN-2017) Abnormal ECG When compared with ECG of 25-JUN-2017 06:34, Significant changes have occurred Confirmed by MD Valladares Roberto ([id number]) on 06/26/2017 2:11:12 PM * NM muga study (rest) (06/25/2017 4:32 PM) Only the most recent of 2 results within the time period is included. Specimen Performing Laboratory [facility] Narrative FINAL REPORT PROCEDURE:Resting RADIONUCLIDE VENTRICULOGRAM (MUGA scan) CPT CODE:08920 INDICATION: Evaluation of ventricular function after prior revascularization HISTORY:Other cardiovascular history: Known CAD with prior coronary bypass, congestive heart failure. Recent cardiac symptoms: Dyspnea. PROTOCOL:Autologous red blood cells were labeled with Tc-99m pertechnetate by the in vitro method. 21.7 mCi of Tc-99m was injected intravenously as labeled red blood cells. Equilibrium gated planar cardiac images were obtained in multiple views at rest. IMAGING FINDINGS:Study quality is good. LV volume appears increased. RV volume appears normal. Gated images obtained at rest show severely hypokinetic LV wall motion and thickening - there is paradoxical septal wall motion, inferior and apical akinesis in addition to hypokinesis of all other segments. LVEF is 26%. IMPRESSION: 1. Abnormal resting radionuclide ventriculogram. EF is 26%.2. Compared to the prior study performed on 06/19/2017, the EF has decreased from 35% to 26%. Signed: Fidel Anthony MD Report Verified Date/Time:06/25/2017 16:41:54 Reading Location: [address] [id number] [place] Reading Room Procedure Note Interface, External Ris In - 06/25/2017 4:44 PM CONTINUOUS MINING OPERATOR FINAL REPORT PROCEDURE: Resting RADIONUCLIDE VENTRICULOGRAM (MUGA scan) CPT CODE: [id number] INDICATION: Evaluation of ventricular function after prior revascularization HISTORY: Other cardiovascular history: Known CAD with prior coronary bypass, congestive heart failure. Recent cardiac symptoms: Dyspnea. PROTOCOL: Autologous red blood cells were labeled with Tc-99m pertechnetate by the in vitro method. 21.7 mCi of Tc-99m was injected intravenously as labeled red blood cells. Equilibrium gated planar cardiac images were obtained in multiple views at rest. IMAGING FINDINGS: Study quality is good. LV volume appears increased. RV volume appears normal. Gated images obtained at rest show severely hypokinetic LV wall motion and thickening - there is paradoxical septal wall motion, inferior and apical akinesis in addition to hypokinesis of all other segments. LVEF is 26%. IMPRESSION: 1. Abnormal resting radionuclide ventriculogram. EF is 26%. 2. Compared to the prior study performed on 06/19/2017, the EF has decreased from 35% to 26%. Signed: Fidel Anthony MD Report Verified Date/Time: 06/25/2017 16:41:54 Reading Location: [address] Reading Room * CBC with platelet count + automated diff (06/25/2017 6:45 AM) Only the most recent of 7 results within the time period is included. Component Value Ref Range WBC 9.2 3.5 - 10.5 K/ L RBC 3.33 (L) 4.63 - 6.08 M/ L Hemoglobin 10.8 (L) 13.7 - 17.5 GM/DL Hematocrit 30.5 (L) 40.1 - 51.0 % MCV 91.6 79.0 - 92.2 fL MCH 32.4 (H) 25.7 - 32.2 pg MCHC 35.4 32.3 - 36.5 GM/DL RDW 12.9 11.6 - 14.4 % Platelets 238 150 - 450 K/CU MM MPV 10.6 9.4 - 12.4 fL nRBC 0 0 - 0 /100 WBC % Neutros 68 % % Lymphs 18 % % Monos 10 % % Eos 3 % % Baso 1 % # Neutros 6.22 (H) 1.78 - 5.38 K/ L # Lymphs 1.69 1.32 - 3.57 K/ L # Monos 0.87 (H) 0.30 - 0.82 K/ L # Eos 0.26 0.04 - 0.54 K/ L # Baso 0.06 0.01 - 0.08 K/ L Immature 1 0 - 1 % Granulocytes-Relative Specimen Performing Laboratory Blood [place] [id number] * CBC with platelet count + automated diff (06/25/2017 6:45 AM) Only the most recent of 7 results within the time period is included. Specimen Performing Laboratory Blood Narrative The following orders were created for panel order CBC with platelet count + automated diff. Procedure Abnormality Status --------- - ------ CBC with platelet count ...[[id number]]AbnormalFinal result Please view results for these tests on the individual orders. * Magnesium (06/25/2017 6:45 AM) Only the most recent of 8 results within the time period is included. Component Value Ref Range Magnesium 1.7 1.6 - 2.6 mg/dL Specimen Performing Laboratory Blood [address] [address] * Basic Metabolic Panel (06/25/2017 6:45 AM) Only the most recent of 7 results within the time period is included. Component Value Ref Range Sodium 137 136 - 145 meq/L Potassium 3.5 3.5 - 5.1 meq/L Chloride 101 98 - 107 meq/L CO2 25 22 - 29 meq/L BUN 16 7 - 21 mg/dL Creatinine 0.66 0.57 - 1.25 mg/dL Glucose 107 (H) 70 - 105 mg/dL Calcium 8.8 8.4 - 10.2 mg/dL EGFR 124Comment: ESTIMATED GFR IS NOT ACCURATE mL/min/1.73 sq m CREATININE CLEARANCE IN PREDICTING GLOMERULAR FILTRATION RATE. ESTIMATED GFR IS NOT APPLICABLE FOR DIALYSIS PATIENTS. Specimen Performing Laboratory Blood [facility] [address] [address] * TRANSFUSION SERVICE REPORT - SCAN (06/24/2017 5:40 PM) Only the most recent of 4 results within the time period is included. * XR chest 1 view portable / bedside (06/24/2017 2:36 PM) Only the most recent of 7 results within the time period is included. Specimen Performing Laboratory GE RIS Narrative FINAL REPORT Chest one view AP 06/24/2017 2:47 PM CLINICAL INDICATION: pneumo eval COMPARISON: 06/24/2017 at 0812 IMPRESSION: There is a tiny left apical pneumothorax. There are trace bilateral pleural effusions with adjacent basilar atelectasis. Cardiomediastinal contours are stable. The central pulmonary vasculature is not engorged. Sternotomy wires remain midline. Signed: Naren Caban MD Report Verified Date/Time:06/24/2017 14:47:31 Reading Location: [facility] C0[facility] Consult Reading Room Procedure Note Interface, External Ris In - 06/24/2017 2:56 PM CONTINUOUS MINING OPERATOR FINAL REPORT Chest one view AP 06/24/2017 2:47 PM CLINICAL INDICATION: pneumo eval COMPARISON: 06/24/2017 at 0812 IMPRESSION: There is a tiny left apical pneumothorax. There are trace bilateral pleural effusions with adjacent basilar atelectasis. Cardiomediastinal contours are stable. The central pulmonary vasculature is not engorged. Sternotomy wires remain midline. Signed: Naren Caban MD Report Verified Date/Time: 06/24/2017 14:47:31 Reading Location: [facility] [id number] Consult Reading Room * 2D Echo W/Doppler(CW/PW/Color) (06/24/2017 1:55 PM) Only the most recent of 2 results within the time period is included. Component Value Ref Range Ejection Fraction Specimen Performing Laboratory SLE ECHO HEARTLAB MKHELENA CPACS Narrative Transthoracic Echocardiography Report (TTE) Demographics Patient Name ESMER,Date of Study06/24/2017 CHRISTIE [id number] Gender Male Visit Number [id number] Race Unknown [id number] Number Date of Birth1960 Referring PhysicianHEAVENLY Guzman Age56 year(s) Washroom Attendant Braden Song Interpreting Jaja Guzman Physician Procedure Type of Study TTE procedure:2DECHO W DOPPLER(CW/PW/COLOR) Indications:Evaluation of LV Function Post AMI. Clinical History CHF,DM Height: 65 inches Weight: 78.47 kg (173 lbs) BSA: 1.86 m^2 BMI: 28.79 kg/m^2 HR: 87 bpm BP: 106/63 mmHg Summary 1. The following segment(s) appear akinetic: all apical segments, mid septum, inferior wall. Estimated LVEF by qualitative assessment is severely reduced (20-24%) . 2. RV chamber size is mildly enlarged . Global RV systolic function is depressed . 3. Unable to estimate peak systolic PA pressure Previous Study Compared to the previous study there was no significant change. Signature Findings Left Ventricle The left ventricle is chamber size (by PSLAX dimension) is normal (male - LVIDd 4.2-5.8cm) . Mild concentric LV hypertrophy. The following segment(s) appear akinetic: all apical segments, mid septum, inferior wall. The other segments are hypokinetic. Global LV systolic function severely reduced . Estimated LVEF by qualitative assessment is severely reduced (20-24%) . Left AtriumLA size is normal . Right VentricleRV chamber size is mildly enlarged . Global RV systolic function is depressed . Right Atrium RA cavity size is normal . Aortic Valve Mild AoV cusp thickening. Mild AoV cusp calcification. Mitral Valve Mild MV leaflet thickening. Mild mitral annular calcification. Tricuspid ValveA trace of tricuspid regurgitation. Unable to estimate peak systolic PA pressure; inadequate TR velocity signal. Pulmonic Valve Normal PV structure and function by limited views and Doppler. AortaAortic root size (SInus of Valsalva diameter) is normal . PericardiumNo pericardial effusion is visualized. IVC/SVC/PA/PV/PleuralThe estimated RA pressure by IVC dynamics indeterminate . Chambers/Structures Left Atrium LA Dimension: 4.05 cm LA Volume: 51.33 ml LA Vol. Index: 28 ml/m^2 Left Ventricle LVIDd: 4.74 cm LV Septum Diastolic: 1.15 cm LV PW Diastolic: 1.17 cm Aorta Ao Root S of Alisha.: 3.45 cm Doppler/Quantitative Measurements LVOT Mean Velocity: 0.41 m/s Mean Gradient: 0.91 mmHg LVOT VTI: 9.63 cm Procedure Note Interface, External Ris In - 06/25/2017 9:57 PM CONTINUOUS MINING OPERATOR Transthoracic Echocardiography Report (TTE) Demographics Patient Name ESMER, Date of Study 06/24/2017 CHRISTIE Gender Male Visit Number [id number] Race Unknown Room Number 1105 Number Date of 1960 Referring Physician HEAVENLY Guzman Age 56 year(s) Washroom Attendant Braden Song Interpreting Physician ELIZABETH [place] Procedure Type of Study TTE procedure:2DECHO W DOPPLER(CW/PW/COLOR) Indications:Evaluation of LV Function Post AMI. Clinical History CHF,DM Height: 65 inches Weight: 78.47 kg (173 lbs) BSA: 1.86 m^2 BMI: 28.79 kg/m^2 HR: 87 bpm BP: 106/63 mmHg Summary 1. The following segment(s) appear akinetic: all apical segments, mid septum, inferior wall. Estimated LVEF by qualitative assessment is severely reduced (20-24%) . 2. RV chamber size is mildly enlarged . Global RV systolic function is depressed . 3. Unable to estimate peak systolic PA pressure Previous Study Compared to the previous study there was no significant change. Signature Findings Left Ventricle The left ventricle is chamber size (by PSLAX dimension) is normal (male - LVIDd 4.2-5.8cm) . Mild concentric LV hypertrophy. The following segment(s) appear akinetic: all apical segments, mid septum, inferior wall. The other segments are hypokinetic. Global LV systolic function severely reduced . Estimated LVEF by qualitative assessment is severely reduced (20-24%) . Left Atrium LA size is normal . Right Ventricle RV chamber size is mildly enlarged . Global RV systolic function is depressed . Right Atrium RA cavity size is normal . Aortic Valve Mild AoV cusp thickening. Mild AoV cusp calcification. Mitral Valve Mild MV leaflet thickening. Mild mitral annular calcification. Tricuspid Valve A trace of tricuspid regurgitation. Unable to estimate peak systolic PA pressure; inadequate TR velocity signal. Pulmonic Valve Normal PV structure and function by limited views and Doppler. Aorta Aortic root size (SInus of Valsalva diameter) is normal . Pericardium No pericardial effusion is visualized. IVC/SVC/PA/PV/Pleural The estimated RA pressure by IVC dynamics indeterminate . Chambers/Structures Left Atrium LA Dimension: 4.05 cm LA Volume: 51.33 ml LA Vol. Index: 28 ml/m^2 Left Ventricle LVIDd: 4.74 cm LV Septum Diastolic: 1.15 cm LV PW Diastolic: 1.17 cm Aorta Ao Root S of Alisha.: 3.45 cm Doppler/Quantitative Measurements LVOT Mean Velocity: 0.41 m/s Mean Gradient: 0.91 mmHg LVOT VTI: 9.63 cm * Prepare Leuko-Red RBC (06/23/2017 11:54 PM) Only the most recent of 2 results within the time period is included. Component Value Ref Range CROSSMATCH COMPATIBLE Unit ABO O Pos UNIT NUMBER [id number] Status TRANSFUSED Blood Bank Product RED BLOOD CELLS PRODUCT CODE [id number] Specimen Performing Laboratory Other [facility] [place] * Transfuse Leuko-Red RBC (06/22/2017 5:57 PM) Only the most recent of 4 results within the time period is included. * Type and screen, automated (06/22/2017 6:25 AM) Only the most recent of 2 results within the time period is included. Component Value Ref Range ABO/RH AUTOMATED (BEAKER) O POSITIVE Ab Scrn NEGATIVE Specimen Performing Laboratory Blood [address] [address] * Oxygen saturation, measured (06/22/2017 4:36 AM) Only the most recent of 3 results within the time period is included. Component Value Ref Range O2 Saturation (Measured) 67.0 % Specimen Performing Laboratory Blood [address] [address] * Phosphorus (06/22/2017 4:36 AM) Only the most recent of 4 results within the time period is included. Component Value Ref Range Phosphorus 3.7 2.3 - 4.7 mg/dL Specimen Performing Laboratory Blood [address] [address] * RRL CRITICAL LABS (ABG,NA,K,H&H,GLUCOSE) (06/21/2017 9:03 PM) Only the most recent of 7 results within the time period is included. Specimen Performing Laboratory Blood, Arterial Narrative The following orders were created for panel order RRL CRITICAL LABS (ABG,NA,K,H& H,GLUCOSE). Procedure Abnormality Status --------- - ------ Blood gas, arterial[[id number]]Abnormal Final result Sodium Na-Stat Lab[[id number]] Normal Final result Potassium-Stat Lab[[id number]] Abnormal Final result Glucose-Stat Lab[[id number]] Normal Final result HGB/HCT (H&H)-Stat Lab[[id number]] Abnormal Final result Please view results for these tests on the individual orders. * Potassium-Stat Lab (06/21/2017 9:03 PM) Only the most recent of 7 results within the time period is included. Component Value Ref Range Potassium 3.5 (L) 3.6 - 5.5 meq/L Specimen Performing Laboratory Blood, [address] [address] * Sodium Na-Stat Lab (06/21/2017 9:03 PM) Only the most recent of 7 results within the time period is included. Component Value Ref Range Sodium 138 135 - 148 meq/L Specimen Performing Laboratory Blood, [address] [address] * Glucose-Stat Lab (06/21/2017 9:03 PM) Only the most recent of 7 results within the time period is included. Component Value Ref Range Glucose 109 70 - 110 mg/dL Specimen Performing Laboratory Blood, [address] [address] * HGB/HCT (H&H)-Stat Lab (06/21/2017 9:03 PM) Only the most recent of 7 results within the time period is included. Component Value Ref Range Hemoglobin 8.2 (L) 13.0 - 16.8 GM/DL Hematocrit 24.0 (L) 40.0 - 50.0 % Specimen Performing Laboratory Blood, [address] [address] * Calcium, Ionized (06/21/2017 9:03 PM) Only the most recent of 6 results within the time period is included. Component Value Ref Range Calcium, Ion 1.18 1.12 - 1.27 mmol/L pH, Blood 7.40 Specimen Performing Laboratory Blood [address] [address] * Lactic acid, arterial, whole blood (06/21/2017 9:03 PM) Only the most recent of 4 results within the time period is included. Component Value Ref Range Lactate, Art 0.9 0.5 - 2.2 mmol/L Specimen Performing Laboratory Blood, [address] [address] Narrative Effective 09/20/2015: Units/Reference Range Change New: 0.5-2.2 mmol/LPrevious: 5-20 mg/dL * Blood gas, arterial (06/21/2017 9:03 PM) Only the most recent of 11 results within the time period is included. Component Value Ref Range pH, Arterial 7.41 7.35 - 7.45 pCO2, Arterial 40 35 - 45 mm Hg pO2, Arterial 98 (H) 80 - 90 mm Hg O2 Sat, Arterial 97.5 (H) 96.0 - 97.0 % HCO3, Arterial 24 21 - 29 mmol/L Base Excess, Arterial -0.3 -2.0 - 3.0 mmol/L Patient Temperature 37.2 FIO2 40 Specimen Performing Laboratory Blood, Arterial [address] [address] * Creatine Kinase (CK), Total and MB (06/21/2017 9:03 PM) Only the most recent of 3 results within the time period is included. Component Value Ref Range Total CK 295 (H) 29 - 200 U/L CK-MB 6.8 (H) 0.0 - 6.6 ng/mL MB Relative Index 2.3 % Specimen Performing Laboratory Blood [address] [address] Narrative CK-MB Reference Range: <6.7Normal 6.7-10.0Borderline >10.0 Abnormal * Potassium (06/21/2017 12:33 PM) Only the most recent of 2 results within the time period is included. Component Value Ref Range Potassium 3.6 3.5 - 5.1 meq/L Specimen Performing Laboratory Blood [address] [address] * PT/aPTT (06/21/2017 9:30 AM) Component Value Ref Range Protime 17.6 (H) 11.7 - 14.7 seconds INR 1.4 <=5.9 PTT 62.8 (H) 22.5 - 36.0 seconds Specimen Performing Laboratory Blood - Line, Arterial [address] [address] Narrative RECOMMENDED COUMADIN/WARFARIN INR THERAPY RANGES STANDARD DOSE: 2.0 - 3.0 Includes: PROPHYLAXIS for venous thrombosis, systemic embolization; TREATMENT for venous thrombosis and/or pulmonary embolus. HIGH RISK: Target INR is 2.5-3.5 for patients with mechanical heart valves. * CBC (Hemogram only) (06/21/2017 6:33 AM) Component Value Ref Range WBC 28.3 (H) 3.5 - 10.5 K/ L RBC 2.55 (L) 4.63 - 6.08 M/ L Hemoglobin 8.5 (L) 13.7 - 17.5 GM/DL Hematocrit 24.0 (L) 40.1 - 51.0 % MCV 94.1 (H) 79.0 - 92.2 fL MCH 33.3 (H) 25.7 - 32.2 pg MCHC 35.4 32.3 - 36.5 GM/DL RDW 12.4 11.6 - 14.4 % Platelets 216 150 - 450 K/CU MM MPV 10.5 9.4 - 12.4 fL nRBC 0 0 - 0 /100 WBC Specimen Performing Laboratory Blood [address] [address] * Prepare RBC (06/21/2017 3:57 AM) Component Value Ref Range CROSSMATCH COMPATIBLE Unit ABO O Pos UNIT NUMBER [id number] Status RETURNED FROM ISSUE Blood Bank Product RED BLOOD CELLS PRODUCT CODE [id number] CROSSMATCH COMPATIBLE Unit ABO O Pos UNIT NUMBER [id number] Status RETURNED FROM ISSUE Blood Bank Product RED BLOOD CELLS PRODUCT CODE [id number] CROSSMATCH COMPATIBLE Unit ABO O Pos UNIT NUMBER [id number] Status RETURNED FROM ISSUE Blood Bank Product RED BLOOD CELLS PRODUCT CODE E0278R45 CROSSMATCH COMPATIBLE Unit ABO O Pos UNIT NUMBER [id number] Status RETURNED FROM ISSUE Blood Bank Product RED BLOOD CELLS PRODUCT CODE [id number] Specimen Performing Laboratory [facility] [place] * aPTT (06/21/2017 1:56 AM) Only the most recent of 3 results within the time period is included. Component Value Ref Range PTT 42.2 (H) 22.5 - 36.0 seconds Specimen Performing Laboratory Blood [address] [address] * Prothrombin time/INR (06/21/2017 1:56 AM) Only the most recent of 3 results within the time period is included. Component Value Ref Range Protime 17.8 (H) 11.7 - 14.7 seconds INR 1.5 <=5.9 Specimen Performing Laboratory Blood [address] [address] Narrative RECOMMENDED COUMADIN/WARFARIN INR THERAPY RANGES STANDARD DOSE: 2.0 - 3.0 Includes: PROPHYLAXIS for venous thrombosis, systemic embolization; TREATMENT for venous thrombosis and/or pulmonary embolus. HIGH RISK: Target INR is 2.5-3.5 for patients with mechanical heart valves. * Glucose-STAT (06/21/2017 1:56 AM) Component Value Ref Range Glucose 216 (H) 70 - 105 mg/dL Specimen Performing Laboratory Blood [address] [address] * POC ACTIVATED CLOTTING TIME (06/20/2017 10:57 PM) Only the most recent of 8 results within the time period is included. Component Value Ref Range Activated Clotting Time 114Comment: TESTED AT [address] [address] Specimen Performing Laboratory Blood [address] [address] * Fibrinogen (06/20/2017 10:52 PM) Component Value Ref Range Fibrinogen 292 225 - 434 mg/dl Specimen Performing Laboratory Blood [address] [address] * Platelet count (06/20/2017 10:52 PM) Component Value Ref Range Platelets 69 (L) 150 - 450 K/CU MM Specimen Performing Laboratory Blood [address] [address] * Blood gas, venous (06/20/2017 6:23 PM) Component Value Ref Range pH, Mamadou 7.43 (H) 7.32 - 7.42 pCO2, Mamadou 41 41 - 51 mmHg pO2, Mamadou 53 (H) 25 - 40 mmHg O2 Sat, Mamadou 89.8 (H) 40.0 - 70.0 % HCO3, Mamadou 27 21 - 29 mmol/L Base Excess, Mamadou 2.1 -2.0 - 3.0 mmol/L Patient Temperature 36.0 C FIO2 100.0 % Specimen Performing Laboratory Blood - Central Venous [facility] Line [address] [place] [address] * XR chest 2 views (06/19/2017 8:56 PM) Specimen Performing Laboratory GE RIS Narrative FINAL REPORT EXAMINATION: 2 VIEW CHEST CLINICAL INDICATIONS: SHORTNESS OF BREATH IMPRESSION: No comparison studies are available. There are small bilateral pleural effusions, left greater than right. Subtle consolidation at the lung bases is favored to reflect associated passive atelectasis. However, mild superimposed edema should also be considered. An underlying early pneumonia or small mass lesion cannot be excluded. The heart is mildly enlarged. Mediastinal contours are relatively sharp. No evidence of an acute osseous abnormality or pneumothorax. In summary, recommend clinical correlation regarding mild fluid overload/heart failure. Chest CT could be performed for further evaluation if warranted. Signed: Wilton Koenig MD Report Verified Date/Time:06/19/2017 23:56:16 Reading Location: [address] Reading Room Procedure Note Interface, External Ris In - 06/19/2017 11:58 PM CONTINUOUS MINING OPERATOR FINAL REPORT EXAMINATION: 2 VIEW CHEST CLINICAL INDICATIONS: SHORTNESS OF BREATH IMPRESSION: No comparison studies are available. There are small bilateral pleural effusions, left greater than right. Subtle consolidation at the lung bases is favored to reflect associated passive atelectasis. However, mild superimposed edema should also be considered. An underlying early pneumonia or small mass lesion cannot be excluded. The heart is mildly enlarged. Mediastinal contours are relatively sharp. No evidence of an acute osseous abnormality or pneumothorax. In summary, recommend clinical correlation regarding mild fluid overload/heart failure. Chest CT could be performed for further evaluation if warranted. Signed: Wilton Koenig MD Report Verified Date/Time: 06/19/2017 23:56:16 Reading Location: [address] Reading Room * PERIPHERAL VASCULAR REPORT - SCAN (06/19/2017 1:40 PM) * Arterial doppler arms bilateral (06/19/2017 11:50 AM) Component Value Ref Range Ejection Fraction Specimen Performing Laboratory [facility] ECHO HEARTLAB MKCKESSON CPACS Impressions Right Impression 1. There are triphasic Doppler waveforms in the radial and ulnar arteries. The arteries are calcified with scattered plaque. 2. The arterial pressures and indices are as follows: brachial 101 mmHg, radial 1289 mmHg (NC) and ulnar 275 mmHg (NC). Note: WBI's are unobtainable due to the vessels being calcified. 3. The index finger pressure is 148 mmHg with a normal finger/brachial index of 1.47. Again calcified. 4. The digits have adequate flow by PPG waveforms. 5. The palmar arch is intact. 6. The radial artery measurements are as follows: Proximal - 0.24 cm, Mid - 0.14 cm, Distal - 0.19 cm. 7. The ulnar artery measurements are as follows: Proximal - 0.20 cm, Mid - 0.19 cm, Distal - 0.15cm. Left Impression 1. There are triphasic Doppler waveforms in the radial and ulnar arteries. The arteries are calcified with scattered plaque. 2. The arterial pressures and indices are as follows: brachial 95 mmHg, radial 275mmHg (NC) and ulnar 276 mmHg (NC). Note: WBI's are unobtainable due to the vessels being calcified. 3. The index finger pressure is 126 mmHg with a normal finger/brachial index of 1.25. Again calcified. 4. The digits have adequate flow by PPG waveforms. 5. The palmar arch is intact. 6. The radial artery measurements are as follows: Proximal - 0.21 cm, Mid - 0.12 cm, Distal - 0.14 cm. 7. The ulnar artery measurements are as follows: Proximal - 0.23 cm, Mid - 0.17 cm, Distal - 0.16 cm. Conclusions Summary Arterial segmental pressures, diameter measurements, palmar arch test, index finger digital pressure and digital PPG flow were performed bilaterally. On the right, there were triphasic Doppler waveforms in the radial and ulnar arteries. The arteries were calcified with scattered plaque. The WBI's were unobtainable due to the vessels being calcified. The FBI was normal but likely falsely elevated. The digits had adequate flow by PPG. On the left, there were triphasic Doppler waveforms in the radial and ulnar arteries. The arteries were calcified with scattered plaque. The WBI's were unobtainable due to the vessels being calcified. The FBI was normal but likely falsely elevated. The digits had adequate flow by PPG. The David's test demonstrated an intact palmar arch bilaterally. Arterial measurements are shown above. Signature Narrative [facility] - Upper Extremity Arterial Procedure Demographics Patient NameFLORES, CHRISTIE Date of Study 06/19/2017 56 Visit [id number] Male of Number Referring Kelsi Bateman Room Number 1155 Physician Washroom Attendant Eren Perea. InterpretingJColeen Solis RVT, Jason JOHNSON, ANNA Procedure Type of Study: Extremities Arteries: Upper Extremity Arterial Procedure, ARTERY PRESSURES ARMS, BILATERAL. Indications for Study:Pre-op for arterial harvesting. Patient Status:Routine. Study Location:Vascular Lab. Technical Quality:Adequate visualization. Risk Factors History of Disease + + + + !Diagnosis !Date !Comments ! + + + + !Other ! !DM, CHF! + + + + Procedure Note Interface, External Ris In - 06/19/2017 1:27 PM CONTINUOUS MINING OPERATOR [facility] - Upper Extremity Arterial Procedure Demographics Patient Name CHRISTIE SHIELDS Date of Study 06/19/2017 Age 56 Visit Number [id number] Gender Male Date of 1960 Number Referring Kelsi Bateman Room Number 1155 Physician Washroom Attendant Eren Perea. Interpreting Judie Solis RVT, ARS Physician MD, RPVI Procedure Type of Study: Extremities Arteries: Upper Extremity Arterial Procedure, ARTERY PRESSURES ARMS, BILATERAL. Indications for Study:Pre-op for arterial harvesting. Patient Status:Routine. Study Location:Vascular Lab. Technical Quality:Adequate visualization. Risk Factors History of Disease + + + + !Diagnosis !Date !Comments ! + + + + !Other ! !DM, CHF ! + + + + Impressions Right Impression 1. There are triphasic Doppler waveforms in the radial and ulnar arteries. The arteries are calcified with scattered plaque. 2. The arterial pressures and indices are as follows: brachial 101 mmHg, radial 1289 mmHg (NC) and ulnar 275 mmHg (NC). Note: WBI's are unobtainable due to the vessels being calcified. 3. The index finger pressure is 148 mmHg with a normal finger/brachial index of 1.47. Again calcified. 4. The digits have adequate flow by PPG waveforms. 5. The palmar arch is intact. 6. The radial artery measurements are as follows: Proximal - 0.24 cm, Mid - 0.14 cm, Distal - 0.19 cm. 7. The ulnar artery measurements are as follows: Proximal - 0.20 cm, Mid - 0.19 cm, Distal - 0.15cm. Left Impression 1. There are triphasic Doppler waveforms in the radial and ulnar arteries. The arteries are calcified with scattered plaque. 2. The arterial pressures and indices are as follows: brachial 95 mmHg, radial 275mmHg (NC) and ulnar 276 mmHg (NC). Note: WBI's are unobtainable due to the vessels being calcified. 3. The index finger pressure is 126 mmHg with a normal finger/brachial index of 1.25. Again calcified. 4. The digits have adequate flow by PPG waveforms. 5. The palmar arch is intact. 6. The radial artery measurements are as follows: Proximal - 0.21 cm, Mid - 0.12 cm, Distal - 0.14 cm. 7. The ulnar artery measurements are as follows: Proximal - 0.23 cm, Mid - 0.17 cm, Distal - 0.16 cm. Conclusions Summary Arterial segmental pressures, diameter measurements, palmar arch test, index finger digital pressure and digital PPG flow were performed bilaterally. On the right, there were triphasic Doppler waveforms in the radial and ulnar arteries. The arteries were calcified with scattered plaque. The WBI's were unobtainable due to the vessels being calcified. The FBI was normal but likely falsely elevated. The digits had adequate flow by PPG. On the left, there were triphasic Doppler waveforms in the radial and ulnar arteries. The arteries were calcified with scattered plaque. The WBI's were unobtainable due to the vessels being calcified. The FBI was normal but likely falsely elevated. The digits had adequate flow by PPG. The David's test demonstrated an intact palmar arch bilaterally. Arterial measurements are shown above. Signature * Lipid panel (06/19/2017 5:33 AM) Component Value Ref Range Triglycerides 130 mg/dL Cholesterol 150 mg/dL HDL 25 mg/dL LDL Calculated 99 mg/dL Specimen Performing Laboratory Blood [address] [address] Narrative Triglyceride Reference Range: Low Risk <150 [id number] High Risk 200-499 Very High Risk>=500 Cholesterol Reference Range: Low Risk <200 [id number] High Risk>240 HDL Cholesterol Reference Range: Low Risk >=60 High Risk <40 LDL Cholesterol Reference Range: Optimal<100 Near Uniptap461-415 [id number] Gesx025-777 Very High >=190 * Urinalysis w/ Microscopic (06/18/2017 9:42 PM) Component Value Ref Range Color, UA Yellow Clarity, UA Clear Specific [place]oster, UA 1.019 1.001 - 1.035 pH, UA 5.5 5.0 - 8.0 Protein, UA Negative Negative Glucose, UA Negative Negative Ketones, UA 20 mg/dL (A) Negative Bilirubin, UA Negative Negative Blood, UA Negative Negative Nitrite, UA Negative Negative Leukocytes, UA Negative Negative Urobilinogen, UA 6.0 (H) 0.2 - 1.0 mg/dL RBC, UA <1 /HPF WBC, UA <1 /HPF Mucus Occasional Specimen Source Urine, Voided Specimen Performing Laboratory Urine - Urine, Voided [address] [address] * Urine culture (06/18/2017 9:42 PM) Component Value Ref Range Result 10-19,000 col/mL skin gabbie Specimen Performing Laboratory Urine - Urine, Clean [facility] Catch [address] [place] [address] * HIV-1 Antigen with HIV-1/2 Antibody (06/18/2017 9:40 PM) Component Value Ref Range HIV-1 Antigen with HIV Nonreactive Nonreactive 1&2 Antibody Specimen Performing Laboratory [address] [address] * Hepatitis C antibody (06/18/2017 9:40 PM) Component Value Ref Range Hepatitis C Ab Nonreactive Nonreactive Specimen Performing Laboratory Blood [address] [address] * Troponin I (06/18/2017 9:40 PM) Component Value Ref Range Troponin I 8.72 (HH) 0.00 - 0.03 ng/mL Specimen Performing Laboratory [address] [address] Narrative Troponin I (TnI) levels must be interpreted in the context of the presenting symptoms and the clinical findings. Elevated TnI levels indicate myocardial damage, but are not specific for ischemic heart disease. Elevated TnI levels are seen in patients with other cardiac conditions (including myocarditis and congestive heart failure), and slight TnI elevations occur in patients with other conditions, including sepsis, renal failure, acidosis, acute neurological disease, and persistent tachyarrhythmia. * Hepatitis B core antibody, total (06/18/2017 9:40 PM) Component Value Ref Range Hep B Core Total Ab Nonreactive Nonreactive Specimen Performing Laboratory [address] [address] * Hepatitis B surface antibody (06/18/2017 9:40 PM) Component Value Ref Range Hep B S Ab <8.0 <8.0 mIU/mL Specimen Performing Laboratory Blood [address] [address] * Hepatitis B surface antigen (06/18/2017 9:40 PM) Component Value Ref Range hepatitis B Surface Ag Nonreactive Nonreactive Specimen Performing Laboratory [address] [address] * TSH (06/18/2017 9:40 PM) Component Value Ref Range TSH 4.84 0.35 - 4.94 uIU/mL Specimen Performing Laboratory [address] [address] * Lipase (06/18/2017 9:40 PM) Component Value Ref Range Lipase 87 (H) 8 - 78 U/L Specimen Performing Laboratory Blood [address] [address] * Hemoglobin A1c (06/18/2017 9:40 PM) Component Value Ref Range Hemoglobin A1C 7.4 (H) 4.3 - 6.1 % Specimen Performing Laboratory Blood [address] [address] * Amylase (06/18/2017 9:40 PM) Component Value Ref Range Amylase 77 25 - 125 U/L Specimen Performing Laboratory Blood [address] [address] * Comprehensive metabolic panel (06/18/2017 9:40 PM) Component Value Ref Range Protein, Total 7.5 6.0 - 8.3 gm/dL Albumin 3.6 3.5 - 5.0 g/dL Alkaline Phosphatase 59 40 - 150 U/L Total Bilirubin 1.1 0.2 - 1.2 mg/dL Sodium 134 (L) 136 - 145 meq/L Potassium 4.5 3.5 - 5.1 meq/L Chloride 99 98 - 107 meq/L CO2 25 22 - 29 meq/L BUN 17 7 - 21 mg/dL Creatinine 0.84 0.57 - 1.25 mg/dL Glucose 114 (H) 70 - 105 mg/dL Calcium 9.2 8.4 - 10.2 mg/dL AST 36 (H) 5 - 34 U/L ALT 29 6 - 55 U/L EGFR 94Comment: ESTIMATED GFR IS NOT ACCURATE mL/min/1.73 sq m CREATININE CLEARANCE IN PREDICTING GLOMERULAR FILTRATION RATE. ESTIMATED GFR IS NOT APPLICABLE FOR DIALYSIS PATIENTS. Specimen Performing Laboratory Blood [address] [address] after 07/01/2016
--- OUTSIDE RECORDS SUMMARY | 2017-07-02 21:12 | XMS REPORT | Continuity of Care Document ---
Author Author [facility] Organization [facility] Address [address] [place] [address] Phone Unavailable Care Team Providers Care Architect In Training Name Role Phone PATITO GRANADOS PCP Insurance Providers Guarantor Christie Shields Address [address] [place] [address] Email [email or web address] Policy Number [id number] Subscriber's Name Christie Shields Relationship 18 Self / Same As Patient Effective Date 17 Expiration Date 17 Advance Directives Directive Response Recorded Date/Time Does the patient have an advance directive? No 06/15/17 1:26pm If yes, is advance directive on file with [facility]? No 06/15/17 1:26pm If not on file with [facility] will patient provide a copy? No 06/15/17 1:26pm Do you have a Directive to Physician? No 06/12/17 4:23pm Do you have a Medical Power of Power Distribution Engineer? No 06/12/17 4:23pm Do you have an out of hospital Do Not Resuscitate Order? No 06/12/17 4:23pm Do you have any special needs we should be aware of? No 06/12/17 4:23pm Do you have a support person here with you today? Yes 06/12/17 4:23pm Did patient receive Notice of Privacy Practices? Yes 06/12/17 4:23pm Did patient receive patient rights and responsibilities? Yes 06/12/17 4:23pm Problems No problem information available. Medications Current Home Medications Medication Dose Units Route Directions Days Qty Instructions Start Date Glyburide 5 Mg Tablet 2.5 Mg Oral Daily 30 Tab Metformin Hcl 500 Mg Tablet 1,000 Mg Oral Twice A Day 60 Tab Family History Relationship Condition Age at Onset Recorded Date/Time 32 Mother Family history of completed stroke 60 years & older 06/15/2017 1: 25pm 09 Sister Family history of diabetes mellitus 50's - 60 06/15/2017 1:25pm Social History Social History Problem Response Recorded Date/Time Onset Date Status Hx Psychiatric Problems No 06/15/2017 1:26pm Not Applicable Not Applicable Hx Eating Disorder No 06/15/2017 1:26pm Not Applicable Not Applicable Hx Substance Use Disorder No 06/15/2017 1:26pm Not Applicable Not Applicable Hx Depression No 06/15/2017 1:26pm Not Applicable Not Applicable Hx Alcohol Use No 06/15/2017 1:26pm Not Applicable Not Applicable Hx Substance Use Treatment No 06/15/2017 1:26pm Not Applicable Not Applicable Hx Physical Abuse No 06/15/2017 1:26pm Not Applicable Not Applicable Smoking Status Start Date Stop Date Never Smoker Hospital Discharge Instructions No hospital discharge instruction information available. Plan of Care Discharge Date 06/18/17 3:25pm Disposition HOME, SELF-CARE Prescriptions See Medication Section Functional Status Query Response Date Recorded FUNCTIONAL STATUS ` June 13, 2017 10:28am Assistive Devices None June 15, 2017 1:01pm Ambulation Ability Minimum Assistance June 15, 2017 1:01pm Toileting Ability Independent June 17, 2017 6:15pm Allergies, Adverse Reactions, Alerts No known allergies. Immunizations No immunization information available. Vital Signs Acute Vital Signs Vital Response Date/Time Temperature (Fahrenheit) 97.4 degrees F (97.6 - 99.5) 06/18/2017 12:11pm Pulse Pulse Rate (adult) 75 bpm (60 - 90) 06/18/2017 12:11pm Respiratory Rate 18 bpm (12 - 24) 06/18/2017 12:11pm Blood Pressure 93/54 mm Hg 06/18/2017 12:11pm Height 5 ft 5 in 06/12/2017 1:42pm Weight 183 lb 06/12/2017 1:42pm Body Mass Index 30.5 kg/m^2 06/15/2017 1:26pm Results Laboratory Results Test Name Result Units Flags Reference Collection Date/Time Result Date/ Time Comments White Blood Count 7.33 x10e3/uL 4.8-10.8 06/18/2017 6:35am 06/18/2017 7 :23am Red Blood Count 3.91 x10e6/uL L 4.3-5.7 06/18/2017 6:35am 06/18/2017 7: 23am Hemoglobin 12.8 g/dL L 14.0-18.0 06/18/2017 6:35am 06/18/2017 7:23am Hematocrit 35.7 % L 38.2-49.6 06/18/2017 6:35am 06/18/2017 7:23am Mean Corpuscular Volume 91.3 fL 81-99 06/18/2017 6:35am 06/18/2017 7: 23am Mean Corpuscular Hemoglobin 32.7 pg H 28-32 06/18/2017 6:35am 2017 7:23am Mean Corpuscular Hemoglobin Concent 35.9 g/dL H 31-35 06/18/2017 6:35am 06/18/2017 7:23am Red Cell Distribution Width 12.1 % 11.7-14.4 06/18/2017 6:35am 2017 7:23am Platelet Count 233 x10e3/uL 140-360 06/18/2017 6:35am 06/18/2017 7: 23am Neutrophils (%) (Auto) 59.2 % 38.7-80.0 06/18/2017 6:35am 06/18/2017 7: 23am Lymphocytes (%) (Auto) 25.9 % 18.0-39.1 06/18/2017 6:35am 06/18/2017 7: 23am Monocytes (%) (Auto) 11.9 % H 4.4-11.3 06/18/2017 6:35am 06/18/2017 7: 23am Eosinophils (%) (Auto) 2.2 % 0.0-6.0 06/18/2017 6:35am 06/18/2017 7: 23am Basophils (%) (Auto) 0.5 % 0.0-1.0 06/18/2017 6:35am 06/18/2017 7:23am IM GRANULOCYTES % 0.3 % 0.0-1.0 06/18/2017 6:35am 06/18/2017 7:23am Neutrophils # (Auto) 4.3 2.1-6.9 06/18/2017 6:35am 06/18/2017 7:23am Lymphocytes # (Auto) 1.9 1.0-3.2 06/18/2017 6:35am 06/18/2017 7:23am Monocytes # (Auto) 0.9 H 0.2-0.8 06/18/2017 6:35am 06/18/2017 7:23am Eosinophils # (Auto) 0.2 0.0-0.4 06/18/2017 6:35am 06/18/2017 7:23am Basophils # (Auto) 0.0 0.0-0.1 06/18/2017 6:35am 06/18/2017 7:23am Absolute Immature Granulocyte (auto 0.02 x10e3/uL 0-0.1 06/18/2017 6: 35am 06/18/2017 7:23am Prothrombin Time 13.5 seconds 11.9-14.5 06/12/2017 1:55pm 06/12/2017 3: 00pm Prothromb Time International Ratio 0.98 06/12/2017 1:55pm 2017 3:00pm Oral Anticoagulant Therapy INR Values: 1. Low Intensity Therapy 1.5 - 2.0 2. Moderate Intensity Therapy 2.0 - 3.0 3. High Intensity Therapy(1) 2.5 - 3.5 4. High Intensity Therapy(2) 3.0 - 4.0 5. Panic Value INR > 5.0 Activated Partial Thromboplast Time 33.5 seconds 23.8-35.5 06/12/2017 1: 55pm 06/12/2017 3:00pm D-Dimer Quantitative (PE/DVT) 1.50 ug/mLFEU H 0.00-0.45 06/12/2017 1: 55pm 06/12/2017 3:05pm Sodium Level 136 mmol/L 136-145 06/18/2017 6:35am 06/18/2017 7:22am Potassium Level 4.0 mmol/L 3.5-5.1 06/18/2017 6:35am 06/18/2017 7:22am Chloride Level 100 mmol/L 98-107 06/18/2017 6:35am 06/18/2017 7:22am Carbon Dioxide Level 26 mmol/L 22-06/18/2017 6:35am 06/18/2017 7: 22am Anion Gap 14.0 mmol/L 8-06/18/2017 6:35am 06/18/2017 7:22am Blood Urea Nitrogen 22 mg/dL 706/18/2017 6:35am 06/18/2017 7:22am Creatinine 0.86 mg/dL 0.72-1.25 06/18/2017 6:35am 06/18/2017 7:22am BUN/Creatinine Ratio 26 H 6-06/18/2017 6:35am 06/18/2017 7:22am Estimat Glomerular Filtration Rate > 60 ML/MIN 6006/18/2017 6:35am 7:22am Ranges were taken from the National Kidney Disease Education Program and the National Kid[employer] Foundation literature. Reference ranges: 60 or greater: Normal 16-59 (for 3 consecutive months): Chronic kidney disease 15 or less: Kidney failure Glucose Level 105 mg/dL 74-118 06/18/2017 6:35am 06/18/2017 7:22am Calcium Level 9.0 mg/dL 8.4-10.2 06/18/2017 6:35am 06/18/2017 7:22am Bedside Glucose 194 mg/dL H 70-120 06/18/2017 11:07am 06/18/2017 11: 32am Meter ID: [id number] Hemoglobin A1c Percent 7.4 % H 4.0-7.0 06/15/2017 5:45am 06/15/2017 6: 48am Magnesium Level 2.1 MG/DL 1.3-2.1 06/16/2017 6:05am 06/16/2017 6:59am Total Bilirubin 1.6 mg/dL H 0.2-1.2 06/12/2017 1:55pm 06/12/2017 3:07pm Aspartate Amino Transf (AST/SGOT) 45 IU/L H 5-34 06/12/2017 1:55pm 06/12 3:07pm Alanine Aminotransferase (ALT/SGPT) 44 IU/L 0-55 06/12/2017 1:55pm 3:07pm Ammonia 44 UG/DL 31-123 06/12/2017 9:55pm 06/12/2017 10:44pm Total Protein 8.5 g/dL H 6.5-8.1 06/12/2017 1:55pm 06/12/2017 3:07pm Albumin 3.5 g/dL 3.5-5.0 06/12/2017 1:55pm 06/12/2017 3:07pm Globulin 5.0 g/dL H 2.3-3.5 06/12/2017 1:55pm 06/12/2017 3:07pm Albumin/Globulin Ratio 0.7 L 0.8-2.0 06/12/2017 1:55pm 06/12/2017 3: 07pm Alkaline Phosphatase 70 IU/L 40-150 06/12/2017 1:55pm 06/12/2017 3: 07pm Triglycerides Level 181 MG/DL H 0-149 06/13/2017 5:15am 06/13/2017 6: 24am Cholesterol Level 202 MD/DL H 0-199 06/13/2017 5:15am 06/13/2017 6:24am Less than 200 mg/dL Low Risk 201 - 239 mg/dL Borderline Risk 240 mg/dl and greater High Risk LDL Cholesterol 142 MG/DL H 60-130 06/13/2017 5:15am 06/13/2017 6:24am HDL Cholesterol 24 MG/DL L 40-60 06/13/2017 5:15am 06/13/2017 6:24am Cholesterol/HDL Ratio 8.4 H 3.9-4.7 06/13/2017 5:15am 06/13/2017 6: 24am B-Type Natriuretic Peptide 630.8 pg/mL H 0-100 06/16/2017 6:05am 2017 7:00am Creatine Kinase 78 IU/L 30-200 06/13/2017 5:15am 06/13/2017 6:24am Creatine Kinase MB 3.10 ng/mL 0.00-5.00 06/13/2017 5:15am 06/13/2017 6: 24am Troponin I 24.162 ng/mL H 0-0.300 06/13/2017 5:15am 06/13/2017 6:24am Elevated result called to brett gordillo at 0623 on 06/13/17 by Romina Conklin.@Consistent with previous result Free Thyroxine Index 2.7108 1.4-3.8 06/12/2017 1:55pm 06/12/2017 8: 28pm Thyroxine (T4) 9.93 ug/dL 4.5-10.9 06/12/2017 1:55pm 06/12/2017 8:28pm Triiodothyronine (T3) Uptake 27.30 % 22.50-37.00 06/12/2017 1:55pm 8:28pm Thyroid Stimulating Hormone (TSH) 2.942 uIU/mL 0.350-4.940 06/12/2017 1: 55pm 06/12/2017 8:28pm Anti-Nuclear Antibody Screen Negative . 06/12/2017 1:55pm 06/14/2017 11:12pm Negative <1:80 Borderline 1:80 Positive >1:80 Performed at: [facility] Lab[address] [id number] Lcsw: Ranulfo Hammonds MD, Phone: [phone] Stool Occult Blood NEGATIVE NEGATIVE 06/16/2017 4:30pm 06/16/2017 5: 02pm Procedures Procedure Status Date Provider(s) X-ray of chest, two views Active 06/12/17 WILTON DOMINGUEZ MD X-ray of chest, two views Active 06/13/17 AMEE BRUSH MD Encounters Encounter Location Arrival/Admit Date Discharge/Depart Date Attending Provider Discharged Inpatient [facility] 06/12/17 5:20pm 06/18/17 3:25pm MP CARRERO MD
--- OUTSIDE RECORDS SUMMARY | 2017-07-02 21:13 | XMS REPORT ---
Author Author [facility] Address Unknown Phone Unavailable Care Team Providers Care Aerospace Physiological Technician Name Role Phone SHOSHANA ALMAZAN Unavailable Unavailable MP CARRERO Unavailable Unavailable Problems This patient has no known problems. Allergies, Adverse Reactions, Alerts This patient has no known allergies or adverse reactions. Medications This patient has no known medications. Results Test Description Test Time Test Comments Text Results Atomic Results Result Comments POCT-GLUCOSE METER 2017-06-26 09:14:00 POC-GLUCOSE METER (BEAKER) (test nkkm=3642) 122 mg/dL 70-110 TESTED AT [address] [address] POCT-GLUCOSE [id number] 21:11:00* Test Item Value Reference Range Comments POC-GLUCOSE METER (BEAKER) (test jhfb=7232) 111 mg/dL 70-110 TESTED AT [place] [id number] [facility] [address] POCT-GLUCOSE [id number] 17:03:00* Test Item Value Reference Range Comments POC-GLUCOSE METER (BEAKER) (test mpny=7201) 109 mg/dL 70-110 TESTED AT [address] [address] MUGA, CARD IMAGING, EQ, REST, WM, [id number] 16:41:00FINAL REPORT PROCEDURE: Resting RADIONUCLIDE VENTRICULOGRAM (MUGA scan) CPT CODE: 66386 INDICATION: Evaluation of ventricular function after prior [...] EF has decreased from 35% to 26%. Signed : Fidel Anthony MDReport Verified Date/Time: 06/25/2017 16:41:54 Reading Location: [address] Reading Room -GLUCOSE [id number] 12 :43:00* Test Item Value Reference Range Comments POC-GLUCOSE METER (BEAKER) (test fsmr=6841) 182 mg/dL 70-110 TESTED AT [place] [id number] [facility] [address] POCT-GLUCOSE [id number] 08:35:00* Test Item Value Reference Range Comments POC-GLUCOSE METER (BEAKER) (test jluy=9930) 120 mg/dL 70-110 TESTED AT [place] [id number] [facility] [address] [id number] 07:59:00* Test Item Value Reference Range Comments MAGNESIUM (BEAKER) (test arcd=214) 1.7 mg/dL 1.6-2.6 BASIC METABOLIC [id number] 07:59:00* Test Item Value Reference Range Comments SODIUM (BEAKER) (test vgdz=941) 137 meq/L 136-145 POTASSIUM (BEAKER) (test qkom=927) 3.5 meq/L 3.5-5.1 CHLORIDE (BEAKER) (test yndf=054) 101 meq/L 98-107 CO2 (BEAKER) (test stoo=145) 25 meq/L 22-29 BLOOD UREA NITROGEN (BEAKER) (test sbvg=849) 16 mg/dL 7-21 CREATININE (BEAKER) (test rnnr=627) 0.66 mg/dL 0.57-1.25 GLUCOSE RANDOM (BEAKER) (test puhp=963) 107 mg/dL 70-105 CALCIUM (BEAKER) (test bzsa=582) 8.8 mg/dL 8.4-10.2 EGFR (BEAKER) (test gmth=0215) 124 mL/min/1.73 sq m ESTIMATED GFR IS NOT ACCURATE CREATININE CLEARANCE IN PREDICTING GLOMERULAR FILTRATION RATE. ESTIMATED GFR IS NOT APPLICABLE FOR DIALYSIS PATIENTS. CBC W/PLT COUNT & AUTO [id number] 07:19:00* Test Item Value Reference Range Comments WHITE BLOOD CELL COUNT (BEAKER) (test arxw=943) 9.2 K/ L 3.5-10.5 RED BLOOD CELL COUNT (BEAKER) (test zxje=898) 3.33 M/ L 4.63-6.08 HEMOGLOBIN (BEAKER) (test dpwx=995) 10.8 GM/DL 13.7-17.5 HEMATOCRIT (BEAKER) (test bzrj=070) 30.5 % 40.1-51.0 MEAN CORPUSCULAR VOLUME (BEAKER) (test kurs=766) 91.6 fL 79.0-92.2 MEAN CORPUSCULAR HEMOGLOBIN (BEAKER) (test drfs=546) 32.4 pg 25.7-32.2 MEAN CORPUSCULAR HEMOGLOBIN CONC (BEAKER) (test xpjq=917) 35.4 GM/DL 32.3- 36.5 RED CELL DISTRIBUTION WIDTH (BEAKER) (test vkvx=875) 12.9 % 11.6-14.4 PLATELET COUNT (BEAKER) (test euli=358) 238 K/CU MM 150-450 MEAN PLATELET VOLUME (BEAKER) (test uqio=146) 10.6 fL 9.4-12.4 NUCLEATED RED BLOOD CELLS (BEAKER) (test bjyf=788) 0 /100 WBC 0-0 NEUTROPHILS RELATIVE PERCENT (BEAKER) (test gjdr=383) 68 % LYMPHOCYTES RELATIVE PERCENT (BEAKER) (test aopr=701) 18 % MONOCYTES RELATIVE PERCENT (BEAKER) (test ilci=117) 10 % EOSINOPHILS RELATIVE PERCENT (BEAKER) (test dqlf=496) 3 % BASOPHILS RELATIVE PERCENT (BEAKER) (test oasf=157) 1 % NEUTROPHILS ABSOLUTE COUNT (BEAKER) (test pvko=203) 6.22 K/ L 1.78-5.38 LYMPHOCYTES ABSOLUTE COUNT (BEAKER) (test nnof=060) 1.69 K/ L 1.32-3.57 MONOCYTES ABSOLUTE COUNT (BEAKER) (test heqh=673) 0.87 K/ L 0.30-0.82 EOSINOPHILS ABSOLUTE COUNT (BEAKER) (test tjwm=218) 0.26 K/ L 0.04-0.54 BASOPHILS ABSOLUTE COUNT (BEAKER) (test idch=261) 0.06 K/ L 0.01-0.08 IMMATURE GRANULOCYTES-RELATIVE PERCENT (BEAKER) (test lity=9498) 1 % 0-1 POCT-GLUCOSE [id number] 21:06:00* Test Item Value Reference Range Comments POC-GLUCOSE METER (BEAKER) (test ofcs=3966) 117 mg/dL 70-110 TESTED AT [place] [id number] [facility] [address] POCT-GLUCOSE [id number] 17:01:00* Test Item Value Reference Range Comments POC-GLUCOSE METER (BEAKER) (test srbr=7700) 179 mg/dL 70-110 TESTED AT [address] [address] POCT-GLUCOSE [id number] 15:02:00* Test Item Value Reference Range Comments POC-GLUCOSE METER (BEAKER) (test ekyo=0179) 137 mg/dL 70-110 TESTED AT [address] [address] RAD, CHEST, 1 VIEW, NON [id number] 14:47:00Reason for exam:->pneumo evalShould this be performed at the bedside?->YesFINAL REPORT Chest one view AP 06/24/2017 2:47 PM CLINICAL INDICATION: pneumo eval COMPARISON: 06/24/2017 at 0812 IMPRESSION: There is a tiny left apical pneumothorax. There are trace bilateral pleural effusions with adjacent basilar atelectasis. Cardiomediastinal contours are stable. The central pulmonary vasculature is not engorged. Sternotomy wires remain midline. Signed: Naren Caban Verified Date/Time: 06/24/2017 14:47:31 Reading Location: [address] Consult Reading Room W/PLT COUNT & AUTO [id number] 13:14: 00* Test Item Value Reference Range Comments WHITE BLOOD CELL COUNT (BEAKER) (test ehxd=976) 10.6 K/ L 3.5-10.5 RED BLOOD CELL COUNT (BEAKER) (test qdkd=495) 3.40 M/ L 4.63-6.08 HEMOGLOBIN (BEAKER) (test drxh=653) 10.7 GM/DL 13.7-17.5 HEMATOCRIT (BEAKER) (test dnge=090) 31.3 % 40.1-51.0 MEAN CORPUSCULAR VOLUME (BEAKER) (test hzzt=454) 92.1 fL 79.0-92.2 MEAN CORPUSCULAR HEMOGLOBIN (BEAKER) (test ljis=904) 31.5 pg 25.7-32.2 MEAN CORPUSCULAR HEMOGLOBIN CONC (BEAKER) (test yizm=879) 34.2 GM/DL 32.3- 36.5 RED CELL DISTRIBUTION WIDTH (BEAKER) (test kpit=254) 13.0 % 11.6-14.4 PLATELET COUNT (BEAKER) (test rkmk=578) 189 K/CU MM 150-450 MEAN PLATELET VOLUME (BEAKER) (test gsmi=690) 10.5 fL 9.4-12.4 NUCLEATED RED BLOOD CELLS (BEAKER) (test qazt=341) 0 /100 WBC 0-0 NEUTROPHILS RELATIVE PERCENT (BEAKER) (test kehl=314) 77 % LYMPHOCYTES RELATIVE PERCENT (BEAKER) (test hbyp=477) 13 % MONOCYTES RELATIVE PERCENT (BEAKER) (test yrax=628) 7 % EOSINOPHILS RELATIVE PERCENT (BEAKER) (test frhm=936) 2 % BASOPHILS RELATIVE PERCENT (BEAKER) (test glxw=865) 1 % NEUTROPHILS ABSOLUTE COUNT (BEAKER) (test euua=861) 8.13 K/ L 1.78-5.38 LYMPHOCYTES ABSOLUTE COUNT (BEAKER) (test kmni=689) 1.40 K/ L 1.32-3.57 MONOCYTES ABSOLUTE COUNT (BEAKER) (test hdik=640) 0.78 K/ L 0.30-0.82 EOSINOPHILS ABSOLUTE COUNT (BEAKER) (test idmr=125) 0.16 K/ L 0.04-0.54 BASOPHILS ABSOLUTE COUNT (BEAKER) (test kere=284) 0.05 K/ L 0.01-0.08 IMMATURE GRANULOCYTES-RELATIVE PERCENT (BEAKER) (test abjs=4490) 1 % 0-1 POCT-GLUCOSE [id number] 12:17:00* Test Item Value Reference Range Comments POC-GLUCOSE METER (BEAKER) (test jfty=0718) 215 mg/dL 70-[address] [facility] [address] [facility] [address] [id number] 10:30:00* Test Item Value Reference Range Comments MAGNESIUM (BEAKER) (test qogx=718) 1.7 mg/dL 1.6-2.6 BASIC METABOLIC [id number] 10:29:00* Test Item Value Reference Range Comments SODIUM (BEAKER) (test jcmi=834) 137 meq/L 136-145 POTASSIUM (BEAKER) (test hjwe=819) 3.8 meq/L 3.5-5.1 CHLORIDE (BEAKER) (test nvjp=356) 103 meq/L 98-107 CO2 (BEAKER) (test xxqm=162) 23 meq/L 22-29 BLOOD UREA NITROGEN (BEAKER) (test dfxz=233) 19 mg/dL 7-21 CREATININE (BEAKER) (test ensv=151) 0.67 mg/dL 0.57-1.25 GLUCOSE RANDOM (BEAKER) (test wjnm=872) 110 mg/dL 70-105 CALCIUM (BEAKER) (test iwwc=149) 9.1 mg/dL 8.4-10.2 EGFR (BEAKER) (test cvdo=2047) 122 mL/min/1.73 sq m ESTIMATED GFR IS NOT ACCURATE CREATININE CLEARANCE IN PREDICTING GLOMERULAR FILTRATION RATE. ESTIMATED GFR IS NOT APPLICABLE FOR DIALYSIS PATIENTS. RAD, CHEST, 1 VIEW, NON [id number] 08:16:00Reason for exam:->PTXFINAL REPORT Chest one view AP 06/24/2017 8:15 AM CLINICAL INDICATION: PTX COMPARISON: 06/23/2017 IMPRESSION: There is a small volume left apical pneumothorax. There are small volume right and trace left pleural effusions. Bibasilar opacities may reflect atelectasis or pneumonia. Cardiomediastinal contours are stable. There is central pulmonary vasculature congestion without remarkable peripheral edema. Support hardware is unchanged in position. Signed: Naren Caban MDReport Verified Date/Time: 06/24/2017 08 :16:09 Reading Location: [facility] Radiology Reading Room -GLUCOSE [id number] 07:52:00* Test Item Value Reference Range Comments POC-GLUCOSE METER (BEAKER) (test dofy=3334) 104 mg/dL 70-[address] [facility] [address] [facility] [address] POCT-GLUCOSE [id number] 23:26:00* Test Item Value Reference Range Comments POC-GLUCOSE METER (BEAKER) (test ldue=2369) 140 mg/dL 70-[address] [facility] [address] [facility] [address] POCT-GLUCOSE [id number] 17:08:00* Test Item Value Reference Range Comments POC-GLUCOSE METER (BEAKER) (test xccf=3130) 107 mg/dL 70-[address] [facility] [address] [facility] [address] RAD, CHEST, 1 VIEW, NON [id number] 17:01:00Reason for exam:->chest tube air leakShould this be performed at the bedside?->YesFINAL REPORT EXAM: Frontal chest radiograph HISTORY PROVIDED: Chest tube air leak COMPARISON: 06/23/2017 at 0400 IMPRESSION:The left thoracostomy tube has been retracted and appears to project below the left hemidiaphragm. There appears to be a small left pneumothorax. Consider repositioning of the left thoracostomy tube. The right IJ central venous catheter has been removed. Mediastinal drains remain in place. There are right greater than left small bilateral pleural effusions and bibasilar opacities likely representing associated atelectasis. Central pulmonary vascular congestion persists with interstitial opacities compatible with edema. The cardiac silhouette remains enlarged. Signed : Dipika Koch [facility] Verified Date/Time: 06/23/2017 17:01:47 Reading Location: [facility] Mammo Reading Room , CHEST, 1 VIEW, NON [id number] 04:42: 00Reason for exam:->s/p acb with chest tubesShould this be performed at the bedside?->YesFINAL REPORT EXAMINATION: AP PORTABLE CHEST RADIOGRAPH CLINICAL INDICATION: Chest tubes IMPRESSION: Compared with 06/22/2017 The [place]-Samantha catheter has been removed in the interval. The left-sided chest tube has been pulled back. Support tube and catheter positions are otherwise unchanged. The enlarged heart, pulmonary edema and bilateral pleural effusions are similar to the previous study and compatible with fluid overload/heart failure. No evidence of new lung consolidation or pneumothorax. Signed: Wilton Koenig MDReport Verified Date/Time: 06/23/2017 04:42:24 Reading Location: [address] Reading Room [id number] 04:21:00* Test Item Value Reference Range Comments MAGNESIUM (BEAKER) (test eqxg=823) 1.5 mg/dL 1.6-2.6 BASIC METABOLIC [id number] 04:21:00* Test Item Value Reference Range Comments SODIUM (BEAKER) (test ovnm=972) 137 meq/L 136-145 POTASSIUM (BEAKER) (test jpfm=004) 3.9 meq/L 3.5-5.1 CHLORIDE (BEAKER) (test lrbj=729) 106 meq/L 98-107 CO2 (BEAKER) (test bapw=068) 20 meq/L 22-29 BLOOD UREA NITROGEN (BEAKER) (test nglx=876) 16 mg/dL 7-21 CREATININE (BEAKER) (test dkxh=608) 0.65 mg/dL 0.57-1.25 GLUCOSE RANDOM (BEAKER) (test iisq=952) 115 mg/dL 70-105 CALCIUM (BEAKER) (test pfif=853) 8.8 mg/dL 8.4-10.2 EGFR (BEAKER) (test avny=4285) 126 mL/min/1.73 sq m ESTIMATED GFR IS NOT ACCURATE CREATININE CLEARANCE IN PREDICTING GLOMERULAR FILTRATION RATE. ESTIMATED GFR IS NOT APPLICABLE FOR DIALYSIS PATIENTS. CBC W/PLT COUNT & AUTO [id number] 03:32:00* Test Item Value Reference Range Comments WHITE BLOOD CELL COUNT (BEAKER) (test jykw=507) 11.6 K/ L 3.5-10.5 RED BLOOD CELL COUNT (BEAKER) (test cnww=878) 2.91 M/ L 4.63-6.08 HEMOGLOBIN (BEAKER) (test kkjr=462) 9.4 GM/DL 13.7-17.5 HEMATOCRIT (BEAKER) (test lxpq=485) 26.6 % 40.1-51.0 MEAN CORPUSCULAR VOLUME (BEAKER) (test giah=097) 91.4 fL 79.0-92.2 MEAN CORPUSCULAR HEMOGLOBIN (BEAKER) (test vqfb=606) 32.3 pg 25.7-32.2 MEAN CORPUSCULAR HEMOGLOBIN CONC (BEAKER) (test knzc=714) 35.3 GM/DL 32.3- 36.5 RED CELL DISTRIBUTION WIDTH (BEAKER) (test rcvm=294) 13.1 % 11.6-14.4 PLATELET COUNT (BEAKER) (test khpu=758) 126 K/CU MM 150-450 MEAN PLATELET VOLUME (BEAKER) (test wszh=813) 10.5 fL 9.4-12.4 NUCLEATED RED BLOOD CELLS (BEAKER) (test kpab=081) 0 /100 WBC 0-0 NEUTROPHILS RELATIVE PERCENT (BEAKER) (test ucaj=372) 78 % LYMPHOCYTES RELATIVE PERCENT (BEAKER) (test slmw=612) 14 % MONOCYTES RELATIVE PERCENT (BEAKER) (test iaon=867) 7 % EOSINOPHILS RELATIVE PERCENT (BEAKER) (test lyag=432) 1 % BASOPHILS RELATIVE PERCENT (BEAKER) (test rhgt=045) 0 % NEUTROPHILS ABSOLUTE COUNT (BEAKER) (test aexp=205) 8.98 K/ L 1.78-5.38 LYMPHOCYTES ABSOLUTE COUNT (BEAKER) (test jmbv=331) 1.60 K/ L 1.32-3.57 MONOCYTES ABSOLUTE COUNT (BEAKER) (test zkdh=707) 0.81 K/ L 0.30-0.82 EOSINOPHILS ABSOLUTE COUNT (BEAKER) (test iiyq=750) 0.09 K/ L 0.04-0.54 BASOPHILS ABSOLUTE COUNT (BEAKER) (test kogp=990) 0.05 K/ L 0.01-0.08 IMMATURE GRANULOCYTES-RELATIVE PERCENT (BEAKER) (test frjk=2018) 0 % 0-1 POCT-GLUCOSE [id number] 23:41:00* Test Item Value Reference Range Comments POC-GLUCOSE METER (BEAKER) (test ridy=7455) 137 mg/dL 70-[address] [facility] [address] [facility] [address] POCT-GLUCOSE [id number] 17:40:00* Test Item Value Reference Range Comments POC-GLUCOSE METER (BEAKER) (test iwns=9703) 162 mg/dL 70-[address] [facility] [address] [facility] [address] POCT-GLUCOSE [id number] 17:40:00* Test Item Value Reference Range Comments POC-GLUCOSE METER (BEAKER) (test vrab=4696) 136 mg/dL 70-[address] [facility] [address] [facility] [address] RAD, CHEST, 1 VIEW, NON [id number] 07:46:00Reason for exam:->s/p acb with chest tubesShould this be performed at the bedside?->YesFINAL REPORT Chest one view compared to June 21 Discussion: Interstitial edema is minimally worse. Chest tubes and right IJ pulmonary catheter in place unchanged. No pneumothorax. Small suspected right effusion. Signed: Priya Rose Verified Date/Time: 06/22/2017 07:46:57 Reading Location: [address] Neuro Reading Room [id number] 05:34:00* Test Item Value Reference Range Comments PHOSPHORUS (BEAKER) (test sxcu=920) 3.7 mg/dL 2.3-4.7 [id number] 05:34:00* Test Item Value Reference Range Comments MAGNESIUM (BEAKER) (test urtd=105) 1.8 mg/dL 1.6-2.6 BASIC METABOLIC [id number] 05:34:00* Test Item Value Reference Range Comments SODIUM (BEAKER) (test msyg=369) 141 meq/L 136-145 POTASSIUM (BEAKER) (test osdx=546) 4.2 meq/L 3.5-5.1 CHLORIDE (BEAKER) (test pfji=258) 111 meq/L 98-107 CO2 (BEAKER) (test ymdq=833) 21 meq/L 22-29 BLOOD UREA NITROGEN (BEAKER) (test whgh=040) 9 mg/dL 7-21 CREATININE (BEAKER) (test puct=517) 0.66 mg/dL 0.57-1.25 GLUCOSE RANDOM (BEAKER) (test kkga=594) 121 mg/dL 70-105 CALCIUM (BEAKER) (test qtnv=243) 8.7 mg/dL 8.4-10.2 EGFR (BEAKER) (test xyah=6378) 124 mL/min/1.73 sq m ESTIMATED GFR IS NOT ACCURATE CREATININE CLEARANCE IN PREDICTING GLOMERULAR FILTRATION RATE. ESTIMATED GFR IS NOT APPLICABLE FOR DIALYSIS PATIENTS. CBC W/PLT COUNT & AUTO [id number] 05:05:00* Test Item Value Reference Range Comments WHITE BLOOD CELL COUNT (BEAKER) (test qgvo=588) 15.8 K/ L 3.5-10.5 RED BLOOD CELL COUNT (BEAKER) (test fyav=622) 2.34 M/ L 4.63-6.08 HEMOGLOBIN (BEAKER) (test ouax=166) 7.4 GM/DL 13.7-17.5 HEMATOCRIT (BEAKER) (test pkfk=762) 21.9 % 40.1-51.0 MEAN CORPUSCULAR VOLUME (BEAKER) (test fukw=168) 93.6 fL 79.0-92.2 MEAN CORPUSCULAR HEMOGLOBIN (BEAKER) (test zkib=840) 31.6 pg 25.7-32.2 MEAN CORPUSCULAR HEMOGLOBIN CONC (BEAKER) (test ahvr=590) 33.8 GM/DL 32.3- 36.5 RED CELL DISTRIBUTION WIDTH (BEAKER) (test pxxs=443) 12.6 % 11.6-14.4 PLATELET COUNT (BEAKER) (test fzve=603) 140 K/CU MM 150-450 MEAN PLATELET VOLUME (BEAKER) (test phia=741) 10.6 fL 9.4-12.4 NUCLEATED RED BLOOD CELLS (BEAKER) (test fjld=651) 0 /100 WBC 0-0 NEUTROPHILS RELATIVE PERCENT (BEAKER) (test aaor=668) 83 % LYMPHOCYTES RELATIVE PERCENT (BEAKER) (test bndw=204) 7 % MONOCYTES RELATIVE PERCENT (BEAKER) (test fjzz=112) 9 % EOSINOPHILS RELATIVE PERCENT (BEAKER) (test pwou=853) 0 % BASOPHILS RELATIVE PERCENT (BEAKER) (test vsuf=372) 0 % NEUTROPHILS ABSOLUTE COUNT (BEAKER) (test rbjy=563) 13.18 K/ L 1.78-5.38 LYMPHOCYTES ABSOLUTE COUNT (BEAKER) (test ygvl=480) 1.15 K/ L 1.32-3.57 MONOCYTES ABSOLUTE COUNT (BEAKER) (test yyej=405) 1.36 K/ L 0.30-0.82 EOSINOPHILS ABSOLUTE COUNT (BEAKER) (test wjkv=600) 0.00 K/ L 0.04-0.54 BASOPHILS ABSOLUTE COUNT (BEAKER) (test mumc=915) 0.04 K/ L 0.01-0.08 IMMATURE GRANULOCYTES-RELATIVE PERCENT (BEAKER) (test xerx=9023) 1 % 0-1 OXYGEN SATURATION, [id number] 05:02:00* Test Item Value Reference Range Comments O2 SATURATION (MEASURED) (BEAKER) (test krav=8444) 67.0 % POCT-GLUCOSE [id number] 01:28:00* Test Item Value Reference Range Comments POC-GLUCOSE METER (BEAKER) (test bkfq=2304) 115 mg/dL 70-[address] [facility] [address] [facility] [address] CREATINE KINASE (CK), TOTAL AND [id number] 22:01:00* Test Item Value Reference Range Comments CREATINE KINASE TOTAL (BEAKER) (test aelu=217) 295 U/L 29-200 CREATINE KINASE-MB (BEAKER) (test qkgq=925) 6.8 ng/mL 0.0-6.6 CREATINE KINASE-MB INDEX (BEAKER) (test gxcd=990) 2.3 % CK-MB Reference Range:<6.7 Normal6.7-10.0 Borderline>10.0 [id number] 21:54:00* Test Item Value Reference Range Comments PHOSPHORUS (BEAKER) (test bjgw=013) 3.9 mg/dL 2.3-4.7 [id number] 21:54:00* Test Item Value Reference Range Comments MAGNESIUM (BEAKER) (test iwdw=888) 1.5 mg/dL 1.6-2.6 BASIC METABOLIC [id number] 21:54:00* Test Item Value Reference Range Comments SODIUM (BEAKER) (test fbzc=097) 142 meq/L 136-145 POTASSIUM (BEAKER) (test mnxz=390) 3.7 meq/L 3.5-5.1 CHLORIDE (BEAKER) (test vzyr=693) 111 meq/L 98-107 CO2 (BEAKER) (test fstb=766) 23 meq/L 22-29 BLOOD UREA NITROGEN (BEAKER) (test jeht=073) 8 mg/dL 7-21 CREATININE (BEAKER) (test reoz=863) 0.66 mg/dL 0.57-1.25 GLUCOSE RANDOM (BEAKER) (test yegm=566) 111 mg/dL 70-105 CALCIUM (BEAKER) (test lfou=959) 9.0 mg/dL 8.4-10.2 EGFR (BEAKER) (test njzr=7254) 124 mL/min/1.73 sq m ESTIMATED GFR IS NOT ACCURATE CREATININE CLEARANCE IN PREDICTING GLOMERULAR FILTRATION RATE. ESTIMATED GFR IS NOT APPLICABLE FOR DIALYSIS PATIENTS. LACTIC ACID, ARTERIAL, WHOLE [id number] 21:50:00* Test Item Value Reference Range Comments LACTATE BLOOD ARTERIAL (2) (BEAKER) (test nwug=4740) 0.9 mmol/L 0.5-2.2 Effective 09/20/2015: Units/Reference Range ChangeNew: 0.5-2.2 mmol/L Previous: 5 -20 mg/dLCBC W/PLT COUNT & AUTO [id number] 21:34:00* Test Item Value Reference Range Comments WHITE BLOOD CELL COUNT (BEAKER) (test mijh=904) 20.6 K/ L 3.5-10.5 RED BLOOD CELL COUNT (BEAKER) (test kjkc=963) 2.41 M/ L 4.63-6.08 HEMOGLOBIN (BEAKER) (test fdcq=464) 7.8 GM/DL 13.7-17.5 HEMATOCRIT (BEAKER) (test rtoz=032) 22.2 % 40.1-51.0 MEAN CORPUSCULAR VOLUME (BEAKER) (test ccuu=383) 92.1 fL 79.0-92.2 MEAN CORPUSCULAR HEMOGLOBIN (BEAKER) (test epqn=079) 32.4 pg 25.7-32.2 MEAN CORPUSCULAR HEMOGLOBIN CONC (BEAKER) (test biri=742) 35.1 GM/DL 32.3- 36.5 RED CELL DISTRIBUTION WIDTH (BEAKER) (test qwfg=400) 12.5 % 11.6-14.4 PLATELET COUNT (BEAKER) (test hfwh=212) 167 K/CU MM 150-450 MEAN PLATELET VOLUME (BEAKER) (test tbwk=116) 10.4 fL 9.4-12.4 NUCLEATED RED BLOOD CELLS (BEAKER) (test fqxb=117) 0 /100 WBC 0-0 NEUTROPHILS RELATIVE PERCENT (BEAKER) (test vath=731) 86 % LYMPHOCYTES RELATIVE PERCENT (BEAKER) (test qfpf=179) 4 % MONOCYTES RELATIVE PERCENT (BEAKER) (test boib=223) 9 % EOSINOPHILS RELATIVE PERCENT (BEAKER) (test smss=347) 0 % BASOPHILS RELATIVE PERCENT (BEAKER) (test sjru=670) 0 % NEUTROPHILS ABSOLUTE COUNT (BEAKER) (test webw=984) 17.73 K/ L 1.78-5.38 LYMPHOCYTES ABSOLUTE COUNT (BEAKER) (test kfuk=200) 0.88 K/ L 1.32-3.57 MONOCYTES ABSOLUTE COUNT (BEAKER) (test bfde=861) 1.80 K/ L 0.30-0.82 EOSINOPHILS ABSOLUTE COUNT (BEAKER) (test lksj=265) 0.00 K/ L 0.04-0.54 BASOPHILS ABSOLUTE COUNT (BEAKER) (test msym=799) 0.05 K/ L 0.01-0.08 IMMATURE GRANULOCYTES-RELATIVE PERCENT (BEAKER) (test zjxv=5226) 1 % 0-1 BLOOD GAS, [id number] 21:29:00* Test Item Value Reference Range Comments PH ARTERIAL (BEAKER) (test mtub=612) 7.41 7.35-7.45 PCO2 ARTERIAL (BEAKER) (test tklf=197) 40 mm Hg 35-45 PO2 ARTERIAL (BEAKER) (test ibab=861) 98 mm Hg 80-90 O2 SATURATION ARTERIAL (BEAKER) (test qqiv=407) 97.5 % 96.0-97.0 HCO3 ARTERIAL (BEAKER) (test tjgl=089) 24 mmol/L 21-29 BASE EXCESS ARTERIAL (BEAKER) (test tmyt=284) -0.3 mmol/L -2.0-3.0 PATIENT TEMPERATURE (BEAKER) (test duyw=5003) 37.2 FIO2 (BEAKER) (test nipl=3337) 40 GLUCOSE-STAT [id number] 21:29:00* Test Item Value Reference Range Comments GLUCOSE RANDOM (BEAKER) (test qwvr=983) 109 mg/dL 70-110 HGB/HCT (H&H) - STAT [id number] 21:29:00* Test Item Value Reference Range Comments HEMOGLOBIN (BEAKER) (test ydpj=101) 8.2 GM/DL 13.0-16.8 HEMATOCRIT (BEAKER) (test fvht=396) 24.0 % 40.0-50.0 POTASSIUM-STAT [id number] 21:29:00* Test Item Value Reference Range Comments POTASSIUM (BEAKER) (test blfi=805) 3.5 meq/L 3.6-5.5 SODIUM NA-STAT [id number] 21:29:00* Test Item Value Reference Range Comments SODIUM (BEAKER) (test seqb=367) 138 meq/L 135-148 CALCIUM, [id number] 21:28:00* Test Item Value Reference Range Comments CALCIUM IONIZED (BEAKER) (test lbhw=053) 1.18 mmol/L 1.12-1.27 PH, BLOOD (BEAKER) (test ndur=5236) 7.40 OXYGEN SATURATION, [id number] 21:26:00* Test Item Value Reference Range Comments O2 SATURATION (MEASURED) (BEAKER) (test ynpg=8569) 71.7 % POCT-GLUCOSE [id number] 18:45:00* Test Item Value Reference Range Comments POC-GLUCOSE METER (BEAKER) (test xrkh=0606) 140 mg/dL 70-110 TESTED AT [address] [address] POCT-GLUCOSE [id number] 18:45:00* Test Item Value Reference Range Comments POC-GLUCOSE METER (BEAKER) (test okef=7914) 147 mg/dL 70-110 TESTED AT [address] [address] POCT-GLUCOSE [id number] 18:44:00* Test Item Value Reference Range Comments POC-GLUCOSE METER (BEAKER) (test tsek=9988) 149 mg/dL 70-110 TESTED AT [address] [address] POCT-GLUCOSE [id number] 14:25:00* Test Item Value Reference Range Comments POC-GLUCOSE METER (BEAKER) (test mxbo=8624) 148 mg/dL 70-110 TESTED AT [address] [address] POCT-GLUCOSE [id number] 14:25:00* Test Item Value Reference Range Comments POC-GLUCOSE METER (BEAKER) (test xogt=8682) 186 mg/dL 70-110 TESTED AT [address] [address] POCT-GLUCOSE [id number] 14:25:00* Test Item Value Reference Range Comments POC-GLUCOSE METER (BEAKER) (test cjaa=8898) 201 mg/dL 70-110 TESTED AT [address] [address] POCT-GLUCOSE [id number] 14:24:00* Test Item Value Reference Range Comments POC-GLUCOSE METER (BEAKER) (test agzw=2793) 217 mg/dL 70-110 TESTED AT [address] [address] POCT-GLUCOSE [id number] 14:24:00* Test Item Value Reference Range Comments POC-GLUCOSE METER (BEAKER) (test kbky=6286) 225 mg/dL 70-110 TESTED AT [address] [address] POCT-GLUCOSE [id number] 14:24:00* Test Item Value Reference Range Comments POC-GLUCOSE METER (BEAKER) (test ilmw=1131) 255 mg/dL 70-110 TESTED AT [address] [address] POCT-GLUCOSE [id number] 14:24:00* Test Item Value Reference Range Comments POC-GLUCOSE METER (BEAKER) (test smoe=1873) 296 mg/dL 70-110 TESTED AT [address] [address] CREATINE KINASE (CK), TOTAL AND [id number] 13:44:00* Test Item Value Reference Range Comments CREATINE KINASE TOTAL (BEAKER) (test emsn=256) 300 U/L 29-200 CREATINE KINASE-MB (BEAKER) (test gmnm=920) 10.3 ng/mL 0.0-6.6 CREATINE KINASE-MB INDEX (BEAKER) (test xzrb=032) 3.4 % CK-MB Reference Range:<6.7 Normal6.7-10.0 Borderline>10.0 [id number] 13:31:00* Test Item Value Reference Range Comments POTASSIUM (BEAKER) (test xyxa=231) 3.6 meq/L 3.5-5.1 [id number] 13:31:00* Test Item Value Reference Range Comments MAGNESIUM (BEAKER) (test czgp=227) 1.7 mg/dL 1.6-2.6 LACTIC ACID, ARTERIAL, WHOLE [id number] 10:50:00* Test Item Value Reference Range Comments LACTATE BLOOD ARTERIAL (2) (BEAKER) (test coee=1218) 7.4 mmol/L 0.5-2.2 Effective 09/20/2015: Units/Reference Range ChangeNew: 0.5-2.2 mmol/L Previous: 5 -20 mg/dLPT/[id number] 10:20:00* Test Item Value Reference Range Comments PROTIME (BEAKER) (test qbdc=494) 17.6 seconds 11.7-14.7 INR (BEAKER) (test mgfl=155) 1.4 <=5.9 PARTIAL THROMBOPLASTIN TIME (BEAKER) (test gghg=137) 62.8 seconds 22.5-36.0 RECOMMENDED COUMADIN/WARFARIN INR THERAPY RANGESSTANDARD DOSE: 2.0 - 3.0 Includes: PROPHYLAXIS for venous thrombosis, systemic embolization; TREATMENT for venous thrombosis and/or pulmonary embolus.HIGH RISK: Target INR is 2.5-3.5 for patients with mechanical heart valves.BLOOD GAS, [id number] 08:58:00 * Test Item Value Reference Range Comments PH ARTERIAL (BEAKER) (test qywe=071) 7.40 7.35-7.45 PCO2 ARTERIAL (BEAKER) (test tico=826) 30 mmHg 35-45 PO2 ARTERIAL (BEAKER) (test xazy=344) 180 mmHg 80-90 O2 SATURATION ARTERIAL (BEAKER) (test beuk=690) 99.3 % 96.0-97.0 HCO3 ARTERIAL (BEAKER) (test hqab=165) 18 mmol/L 21-29 BASE EXCESS ARTERIAL (BEAKER) (test eweb=444) -5.9 mmol/L -2.0-3.0 PATIENT TEMPERATURE (BEAKER) (test vgmf=0154) 37.0 C FIO2 (BEAKER) (test ooto=4172) 40.0 % RAD, CHEST, 1 VIEW, NON [id number] 08:37:00Reason for exam:->s/p acb with chest tubesShould this be performed at the bedside?->YesFINAL REPORT Chest one view compared to June 21 Discussion: Chest tubes, right IJ pulmonary catheter, ET tube in unremarkable positions. Pulmonary congestion is unchanged. No effusion or pneumothorax. Signed: Priya Roseeport Verified Date/Time: 06/21/2017 08:37:39 Reading Location: [address] Reading Room [id number] 07:25:00* Test Item Value Reference Range Comments PHOSPHORUS (BEAKER) (test yhcc=257) 2.4 mg/dL 2.3-4.7 [id number] 07:25:00* Test Item Value Reference Range Comments MAGNESIUM (BEAKER) (test chhx=436) 1.4 mg/dL 1.6-2.6 BASIC METABOLIC [id number] 07:25:00* Test Item Value Reference Range Comments SODIUM (BEAKER) (test grdt=891) 140 meq/L 136-145 POTASSIUM (BEAKER) (test crtt=291) 3.7 meq/L 3.5-5.1 CHLORIDE (BEAKER) (test osir=641) 111 meq/L 98-107 CO2 (BEAKER) (test wbtg=400) 16 meq/L 22-29 BLOOD UREA NITROGEN (BEAKER) (test exrl=226) 10 mg/dL 7-21 CREATININE (BEAKER) (test rrzg=838) 1.01 mg/dL 0.57-1.25 GLUCOSE RANDOM (BEAKER) (test mdiy=622) 295 mg/dL 70-105 CALCIUM (BEAKER) (test fprw=646) 9.1 mg/dL 8.4-10.2 EGFR (BEAKER) (test mmlw=4529) 76 mL/min/1.73 sq m ESTIMATED GFR IS NOT ACCURATE CREATININE CLEARANCE IN PREDICTING GLOMERULAR FILTRATION RATE. ESTIMATED GFR IS NOT APPLICABLE FOR DIALYSIS PATIENTS. LACTIC ACID, ARTERIAL, WHOLE [id number] 07:23:00* Test Item Value Reference Range Comments LACTATE BLOOD ARTERIAL (2) (BEAKER) (test moam=7187) 7.4 mmol/L 0.5-2.2 Specimen slightly hemolyzed Effective 09/20/2015: Units/Reference Range ChangeNew: 0.5-2.2 mmol/L Previous: 5 -20 mg/dLBLOOD GAS, [id number] 07:05:00* Test Item Value Reference Range Comments PH ARTERIAL (BEAKER) (test ztjo=716) 7.36 7.35-7.45 PCO2 ARTERIAL (BEAKER) (test whpz=890) 31 mmHg 35-45 PO2 ARTERIAL (BEAKER) (test clsf=976) 168 mmHg 80-90 O2 SATURATION ARTERIAL (BEAKER) (test uqwk=653) 99.1 % 96.0-97.0 HCO3 ARTERIAL (BEAKER) (test eemk=568) 17 mmol/L 21-29 BASE EXCESS ARTERIAL (BEAKER) (test hplg=417) -7.4 mmol/L -2.0-3.0 PATIENT TEMPERATURE (BEAKER) (test rosk=8366) 37.2 C FIO2 (BEAKER) (test tclg=1579) 40.0 % CBC (HEMOGRAM ONLY)2017-06-21 07:04:00* Test Item Value Reference Range Comments WHITE BLOOD CELL COUNT (BEAKER) (test qvox=201) 28.3 K/ L 3.5-10.5 RED BLOOD CELL COUNT (BEAKER) (test gtzc=843) 2.55 M/ L 4.63-6.08 HEMOGLOBIN (BEAKER) (test rtdc=060) 8.5 GM/DL 13.7-17.5 HEMATOCRIT (BEAKER) (test cyjw=971) 24.0 % 40.1-51.0 MEAN CORPUSCULAR VOLUME (BEAKER) (test jnjr=130) 94.1 fL 79.0-92.2 MEAN CORPUSCULAR HEMOGLOBIN (BEAKER) (test ngww=801) 33.3 pg 25.7-32.2 MEAN CORPUSCULAR HEMOGLOBIN CONC (BEAKER) (test hxgv=466) 35.4 GM/DL 32.3- 36.5 RED CELL DISTRIBUTION WIDTH (BEAKER) (test hbwt=100) 12.4 % 11.6-14.4 PLATELET COUNT (BEAKER) (test nblp=502) 216 K/CU MM 150-450 MEAN PLATELET VOLUME (BEAKER) (test tadz=144) 10.5 fL 9.4-12.4 NUCLEATED RED BLOOD CELLS (BEAKER) (test isuy=254) 0 /100 WBC 0-0 POCT-GLUCOSE [id number] 06:43:00* Test Item Value Reference Range Comments POC-GLUCOSE METER (BEAKER) (test tlhg=1979) 275 mg/dL 70-[address] [facility] [address] [facility] [address] POCT-GLUCOSE [id number] 06:43:00* Test Item Value Reference Range Comments POC-GLUCOSE METER (BEAKER) (test wler=1153) 240 mg/dL 70-110 TESTED AT [place] [id number] [facility] [address] POCT-GLUCOSE [id number] 06:43:00* Test Item Value Reference Range Comments POC-GLUCOSE METER (BEAKER) (test nntj=6712) 184 mg/dL 70-110 TESTED AT [place] [id number] [facility] [address] CREATINE KINASE (CK), TOTAL AND [id number] 06:15:00* Test Item Value Reference Range Comments CREATINE KINASE TOTAL (BEAKER) (test tqcg=877) 230 U/L 29-200 CREATINE KINASE-MB (BEAKER) (test tnqp=607) 11.3 ng/mL 0.0-6.6 CREATINE KINASE-MB INDEX (BEAKER) (test irlw=002) 4.9 % CK-MB Reference Range:<6.7 Normal6.7-10.0 Borderline>10.0 [id number] 03:22:00* Test Item Value Reference Range Comments POTASSIUM (BEAKER) (test vdhy=469) 3.5 meq/L 3.5-5.1 [id number] 03:22:00* Test Item Value Reference Range Comments MAGNESIUM (BEAKER) (test xcwk=382) 1.5 mg/dL 1.6-2.6 [id number] 03:22:00* Test Item Value Reference Range Comments PHOSPHORUS (BEAKER) (test tmzj=028) 5.1 mg/dL 2.3-4.7 [id number] 03:22:00* Test Item Value Reference Range Comments GLUCOSE RANDOM (BEAKER) (test vxjk=211) 216 mg/dL 70-105 BASIC METABOLIC [id number] 03:22:00* Test Item Value Reference Range Comments SODIUM (BEAKER) (test qbki=082) 141 meq/L 136-145 POTASSIUM (BEAKER) (test kbjv=600) 3.5 meq/L 3.5-5.1 CHLORIDE (BEAKER) (test pxeu=328) 110 meq/L 98-107 CO2 (BEAKER) (test pfuh=831) 14 meq/L 22-29 BLOOD UREA NITROGEN (BEAKER) (test plfl=171) 10 mg/dL 7-21 CREATININE (BEAKER) (test ntys=658) 0.80 mg/dL 0.57-1.25 GLUCOSE RANDOM (BEAKER) (test ilxx=737) 216 mg/dL 70-105 CALCIUM (BEAKER) (test hxpm=258) 9.4 mg/dL 8.4-10.2 EGFR (BEAKER) (test mnpv=5336) 99 mL/min/1.73 sq m ESTIMATED GFR IS NOT ACCURATE CREATININE CLEARANCE IN PREDICTING GLOMERULAR FILTRATION RATE. ESTIMATED GFR IS NOT APPLICABLE FOR DIALYSIS PATIENTS. LACTIC ACID, ARTERIAL, WHOLE [id number] 03:19:00* Test Item Value Reference Range Comments LACTATE BLOOD ARTERIAL (2) (BEAKER) (test fatk=6355) 3.9 mmol/L 0.5-2.2 Effective 09/20/2015: Units/Reference Range ChangeNew: 0.5-2.2 mmol/L Previous: 5 -20 mg/[id number] 03:07:00* Test Item Value Reference Range Comments PARTIAL THROMBOPLASTIN TIME (BEAKER) (test bfje=216) 42.2 seconds 22.5-36.0 PROTHROMBIN TIME/[id number] 03:06:00* Test Item Value Reference Range Comments PROTIME (BEAKER) (test vdxk=872) 17.8 seconds 11.7-14.7 INR (BEAKER) (test pozv=581) 1.5 <=5.9 RECOMMENDED COUMADIN/WARFARIN INR THERAPY RANGESSTANDARD DOSE: 2.0 - 3.0 Includes: PROPHYLAXIS for venous thrombosis, systemic embolization; TREATMENT for venous thrombosis and/or pulmonary embolus.HIGH RISK: Target INR is 2.5-3.5 for patients with mechanical heart valves.CBC W/PLT COUNT & AUTO [id number] 02:57:00* Test Item Value Reference Range Comments WHITE BLOOD CELL COUNT (BEAKER) (test fhul=361) 29.0 K/ L 3.5-10.5 RED BLOOD CELL COUNT (BEAKER) (test igor=148) 2.84 M/ L 4.63-6.08 HEMOGLOBIN (BEAKER) (test nxbd=746) 9.3 GM/DL 13.7-17.5 HEMATOCRIT (BEAKER) (test hkon=604) 27.0 % 40.1-51.0 MEAN CORPUSCULAR VOLUME (BEAKER) (test cdtf=437) 95.1 fL 79.0-92.2 MEAN CORPUSCULAR HEMOGLOBIN (BEAKER) (test nbak=806) 32.7 pg 25.7-32.2 MEAN CORPUSCULAR HEMOGLOBIN CONC (BEAKER) (test lmwe=892) 34.4 GM/DL 32.3- 36.5 RED CELL DISTRIBUTION WIDTH (BEAKER) (test exxu=958) 12.4 % 11.6-14.4 PLATELET COUNT (BEAKER) (test wuwu=072) 230 K/CU MM 150-450 MEAN PLATELET VOLUME (BEAKER) (test wnnl=101) 10.9 fL 9.4-12.4 NUCLEATED RED BLOOD CELLS (BEAKER) (test bxye=081) 0 /100 WBC 0-0 NEUTROPHILS RELATIVE PERCENT (BEAKER) (test rcrk=600) 86 % LYMPHOCYTES RELATIVE PERCENT (BEAKER) (test kors=215) 5 % MONOCYTES RELATIVE PERCENT (BEAKER) (test szll=819) 9 % EOSINOPHILS RELATIVE PERCENT (BEAKER) (test lhwl=831) 0 % BASOPHILS RELATIVE PERCENT (BEAKER) (test pjit=757) 0 % NEUTROPHILS ABSOLUTE COUNT (BEAKER) (test fnyp=254) 24.77 K/ L 1.78-5.38 LYMPHOCYTES ABSOLUTE COUNT (BEAKER) (test kjwb=078) 1.48 K/ L 1.32-3.57 MONOCYTES ABSOLUTE COUNT (BEAKER) (test myji=502) 2.52 K/ L 0.30-0.82 EOSINOPHILS ABSOLUTE COUNT (BEAKER) (test jlir=215) 0.01 K/ L 0.04-0.54 BASOPHILS ABSOLUTE COUNT (BEAKER) (test asfx=473) 0.03 K/ L 0.01-0.08 IMMATURE GRANULOCYTES-RELATIVE PERCENT (BEAKER) (test ohmo=4146) 1 % 0-1 RAD, CHEST, 1 VIEW, NON [id number] 02:37:00Reason for exam:->s/p cardiac surgeryShould this be performed at the bedside?->YesFINAL REPORT EXAMINATION: AP PORTABLE CHEST RADIOGRAPH CLINICAL INDICATION: Intubation, central line and chest tube placement IMPRESSION: Compared with 2017. Patient is status post interval cardiothoracic surgery with midline sternotomy and placement of multiple chest tubes. Tip of the [place]-Samantha catheter projects along the expected course of the pulmonary trunk near the origin of the right pulmonary artery. Tip of the endotracheal tube projects just superior to the scotty and is directed towards the right mainstem bronchus. The endotracheal tube could be pulled back 2 cm. The heart is enlarged. Curvilinear opacities are noted in the perihilar regions and lung bases. A component of atelectasis is suspected. Mild superimposed edema should also be considered. Subtle curvilinear radiolucency is also noted along the left heart border suggesting pneumomediastinum/pneumopericardium. There are small bilateral pleural effusions. No evidence of a significant pneumothorax. In summary, constellation of findings worrisome for mild fluid overload/heart failure. Note : Consider repositioning of the endotracheal tube. Results discussed with the nurse caring for the patient at the time of dictation. She will notify the appropriate clinician. Signed: Wilton Koenig MDReport Verified Date/Time: 2017 02:37:02 Reading Location: [address] Reading Room D GAS, [id number] 02:09:00* Test Item Value Reference Range Comments PH ARTERIAL (BEAKER) (test ehzq=379) 7.32 7.35-7.45 PCO2 ARTERIAL (BEAKER) (test psom=796) 31 mmHg 35-45 PO2 ARTERIAL (BEAKER) (test bkpj=828) 224 mmHg 80-90 O2 SATURATION ARTERIAL (BEAKER) (test wijl=418) 99.4 % 96.0-97.0 HCO3 ARTERIAL (BEAKER) (test diez=660) 16 mmol/L 21-29 BASE EXCESS ARTERIAL (BEAKER) (test kmfc=492) -9.3 mmol/L -2.0-3.0 PATIENT TEMPERATURE (BEAKER) (test mvdb=7663) 36.2 C FIO2 (BEAKER) (test foxl=0850) 60.0 % CALCIUM, [id number] 02:09:00* Test Item Value Reference Range Comments CALCIUM IONIZED (BEAKER) (test tgca=670) 1.32 mmol/L 1.12-1.27 PH, BLOOD (BEAKER) (test gcuu=7648) 7.31 OXYGEN SATURATION, [id number] 02:08:00* Test Item Value Reference Range Comments O2 SATURATION (MEASURED) (BEAKER) (test zsmu=0677) 73.5 % [id number] 23:57:00* Test Item Value Reference Range Comments ACTIVATED CLOTTING TIME (BEAKER) (test webb=605) 114 sec TESTED AT [place] [address] [id number] 23:57:00* Test Item Value Reference Range Comments ACTIVATED CLOTTING TIME (BEAKER) (test efpn=825) 455 sec TESTED AT [place] [address] [id number] 23:57:00* Test Item Value Reference Range Comments ACTIVATED CLOTTING TIME (BEAKER) (test apox=541) 362 sec TESTED AT [place] [id number] 23:57:00* Test Item Value Reference Range Comments ACTIVATED CLOTTING TIME (BEAKER) (test bxuw=752) 411 sec TESTED AT [place] [address] [id number] 23:57:00* Test Item Value Reference Range Comments ACTIVATED CLOTTING TIME (BEAKER) (test qvvs=610) 466 sec TESTED AT [place] [address] [id number] 23:57:00* Test Item Value Reference Range Comments ACTIVATED CLOTTING TIME (BEAKER) (test yggz=362) 389 sec TESTED AT [place] [address] [id number] 23:57:00* Test Item Value Reference Range Comments ACTIVATED CLOTTING TIME (BEAKER) (test wcps=120) 356 sec TESTED AT [place] [address] [facility] [address] [id number] 23:56:00* Test Item Value Reference Range Comments PARTIAL THROMBOPLASTIN TIME (BEAKER) (test jeik=803) 35.5 seconds 22.5-36.0 [id number] 23:56:00* Test Item Value Reference Range Comments ACTIVATED CLOTTING TIME (BEAKER) (test eotd=177) [address] [facility] [address] [facility] [address] PROTHROMBIN [id number] 23:55:00* Test Item Value Reference Range Comments PROTIME (BEAKER) (test cvfv=561) 22.0 seconds 11.7-14.7 INR (BEAKER) (test iefj=211) 1.9 <=5.9 RECOMMENDED COUMADIN/WARFARIN INR THERAPY RANGESSTANDARD DOSE: 2.0 - 3.0 Includes: PROPHYLAXIS for venous thrombosis, systemic embolization; TREATMENT for venous thrombosis and/or pulmonary embolus.HIGH RISK: Target INR is 2.5-3.5 for patients with mechanical heart valves.[id number] 23:55:00* Test Item Value Reference Range Comments FIBRINOGEN LEVEL (BEAKER) (test tbfp=460) 292 mg/dl 225-434 PLATELET [id number] 23:33:00* Test Item Value Reference Range Comments PLATELET COUNT (BEAKER) (test rrbj=371) 69 K/CU MM 150-450 BLOOD GAS, [id number] 23:13:00* Test Item Value Reference Range Comments PH ARTERIAL (BEAKER) (test lspj=215) 7.32 7.35-7.45 PCO2 ARTERIAL (BEAKER) (test sqbl=231) 33 mmHg 35-45 PO2 ARTERIAL (BEAKER) (test kvcn=090) 354 mmHg 80-90 O2 SATURATION ARTERIAL (BEAKER) (test kuev=958) 99.7 % 96.0-97.0 HCO3 ARTERIAL (BEAKER) (test dwyo=725) 17 mmol/L 21-29 BASE EXCESS ARTERIAL (BEAKER) (test dajr=271) -8.7 mmol/L -2.0-3.0 PATIENT TEMPERATURE (BEAKER) (test mrvn=5282) 37.0 C FIO2 (BEAKER) (test gaes=4685) 100.0 % CALCIUM, [id number] 23:12:00* Test Item Value Reference Range Comments CALCIUM IONIZED (BEAKER) (test oyqe=152) 1.24 mmol/L 1.12-1.27 PH, BLOOD (BEAKER) (test qvee=1067) 7.32 SODIUM NA-STAT [id number] 23:10:00* Test Item Value Reference Range Comments SODIUM (BEAKER) (test utpd=127) 138 meq/L 135-148 POTASSIUM-STAT [id number] 23:10:00* Test Item Value Reference Range Comments POTASSIUM (BEAKER) (test uxtv=278) 3.0 meq/L 3.6-5.5 GLUCOSE-STAT [id number] 23:10:00* Test Item Value Reference Range Comments GLUCOSE RANDOM (BEAKER) (test xamu=139) 157 mg/dL 70-110 HGB/HCT (H&H) - STAT [id number] 23:10:00* Test Item Value Reference Range Comments HEMOGLOBIN (BEAKER) (test jjil=755) 8.7 g/dL 13.0-16.8 HEMATOCRIT (BEAKER) (test xikv=045) 26.0 % 40.0-50.0 GLUCOSE-STAT [id number] 22:50:00* Test Item Value Reference Range Comments GLUCOSE RANDOM (BEAKER) (test merc=742) 168 mg/dL 70-110 BLOOD GAS, [id number] 22:37:00* Test Item Value Reference Range Comments PH ARTERIAL (BEAKER) (test hqdh=349) 7.35 7.35-7.45 PCO2 ARTERIAL (BEAKER) (test fmun=958) 39 mmHg 35-45 PO2 ARTERIAL (BEAKER) (test ybfe=754) 281 mmHg 80-90 O2 SATURATION ARTERIAL (BEAKER) (test jrta=570) 99.6 % 96.0-97.0 HCO3 ARTERIAL (BEAKER) (test nvmn=157) 21 mmol/L 21-29 BASE EXCESS ARTERIAL (BEAKER) (test smjx=222) -4.2 mmol/L -2.0-3.0 PATIENT TEMPERATURE (BEAKER) (test dcdx=9224) 37.0 C HGB/HCT (H&H) - STAT [id number] 22:37:00* Test Item Value Reference Range Comments HEMOGLOBIN (BEAKER) (test scis=873) 8.8 g/dL 13.0-16.8 HEMATOCRIT (BEAKER) (test vsmg=665) 26.0 % 40.0-50.0 SODIUM NA-STAT [id number] 22:36:00* Test Item Value Reference Range Comments SODIUM (BEAKER) (test upou=041) 135 meq/L 135-148 POTASSIUM-STAT [id number] 22:36:00* Test Item Value Reference Range Comments POTASSIUM (BEAKER) (test aytf=199) 3.8 meq/L 3.6-5.5 POTASSIUM-STAT [id number] 22:10:00* Test Item Value Reference Range Comments POTASSIUM (BEAKER) (test ykuj=306) 3.9 meq/L 3.6-5.5 BLOOD GAS, [id number] 22:10:00* Test Item Value Reference Range Comments PH ARTERIAL (BEAKER) (test fkdl=727) 7.35 7.35-7.45 PCO2 ARTERIAL (BEAKER) (test mlcm=002) 33 mmHg 35-45 PO2 ARTERIAL (BEAKER) (test bfru=732) 384 mmHg 80-90 O2 SATURATION ARTERIAL (BEAKER) (test cslb=631) 99.8 % 96.0-97.0 HCO3 ARTERIAL (BEAKER) (test bbbw=382) 18 mmol/L 21-29 BASE EXCESS ARTERIAL (BEAKER) (test vknt=168) -7.3 mmol/L -2.0-3.0 PATIENT TEMPERATURE (BEAKER) (test jkvn=2597) 35.8 C FIO2 (BEAKER) (test gjzp=1163) 80.0 % SODIUM NA-STAT [id number] 22:10:00* Test Item Value Reference Range Comments SODIUM (BEAKER) (test bxhp=870) 132 meq/L 135-148 GLUCOSE-STAT [id number] 22:10:00* Test Item Value Reference Range Comments GLUCOSE RANDOM (BEAKER) (test wcag=772) 161 mg/dL 70-110 HGB/HCT (H&H) - STAT [id number] 22:10:00* Test Item Value Reference Range Comments HEMOGLOBIN (BEAKER) (test egnb=015) 8.1 g/dL 13.0-16.8 HEMATOCRIT (BEAKER) (test cdyu=643) 24.0 % 40.0-50.0 CALCIUM, [id number] 21:24:00* Test Item Value Reference Range Comments CALCIUM IONIZED (BEAKER) (test uirc=890) 1.08 mmol/L 1.12-1.27 PH, BLOOD (BEAKER) (test sbua=5865) 7.37 SODIUM NA-STAT [id number] 21:23:00* Test Item Value Reference Range Comments SODIUM (BEAKER) (test ylwi=842) 136 meq/L 135-148 POTASSIUM-STAT [id number] 21:23:00* Test Item Value Reference Range Comments POTASSIUM (BEAKER) (test yxge=401) 4.4 meq/L 3.6-5.5 BLOOD GAS, [id number] 21:23:00* Test Item Value Reference Range Comments PH ARTERIAL (BEAKER) (test sdib=668) 7.37 7.35-7.45 PCO2 ARTERIAL (BEAKER) (test hikp=394) 36 mmHg 35-45 PO2 ARTERIAL (BEAKER) (test edhx=381) 419 mmHg 80-90 O2 SATURATION ARTERIAL (BEAKER) (test mtyy=779) 99.8 % 96.0-97.0 HCO3 ARTERIAL (BEAKER) (test cjhb=066) 20 mmol/L 21-29 BASE EXCESS ARTERIAL (BEAKER) (test lsga=028) -4.7 mmol/L -2.0-3.0 PATIENT TEMPERATURE (BEAKER) (test ibps=5456) 36.1 C FIO2 (BEAKER) (test tlon=0577) 100.0 % GLUCOSE-STAT [id number] 21:23:00* Test Item Value Reference Range Comments GLUCOSE RANDOM (BEAKER) (test kkjx=028) 142 mg/dL 70-110 HGB/HCT (H&H) - STAT [id number] 21:23:00* Test Item Value Reference Range Comments HEMOGLOBIN (BEAKER) (test mbrb=619) 12.3 g/dL 13.0-16.8 HEMATOCRIT (BEAKER) (test rmiq=529) 36.0 % 40.0-50.0 CALCIUM, [id number] 19:59:00* Test Item Value Reference Range Comments CALCIUM IONIZED (BEAKER) (test pfvw=942) 0.79 mmol/L 1.12-1.27 PH, BLOOD (BEAKER) (test rvoe=4585) 7.38 BLOOD GAS, [id number] 19:58:00* Test Item Value Reference Range Comments PH ARTERIAL (BEAKER) (test phmm=540) 7.38 7.35-7.45 PCO2 ARTERIAL (BEAKER) (test kzdi=324) 33 mmHg 35-45 PO2 ARTERIAL (BEAKER) (test xvwn=534) 166 mmHg 80-90 O2 SATURATION ARTERIAL (BEAKER) (test wuyo=171) 99.1 % 96.0-97.0 HCO3 ARTERIAL (BEAKER) (test olxr=809) 19 mmol/L 21-29 BASE EXCESS ARTERIAL (BEAKER) (test vocr=531) -5.2 mmol/L -2.0-3.0 PATIENT TEMPERATURE (BEAKER) (test xusg=5499) 36.5 C FIO2 (BEAKER) (test seya=9983) 50.0 % POTASSIUM-STAT [id number] 19:58:00* Test Item Value Reference Range Comments POTASSIUM (BEAKER) (test mino=429) 2.7 meq/L 3.6-5.5 HGB/HCT (H&H) - STAT [id number] 19:58:00* Test Item Value Reference Range Comments HEMOGLOBIN (BEAKER) (test lwoo=715) 10.9 g/dL 13.0-16.8 HEMATOCRIT (BEAKER) (test tynz=725) 32.0 % 40.0-50.0 GLUCOSE-STAT [id number] 19:55:00* Test Item Value Reference Range Comments GLUCOSE RANDOM (BEAKER) (test dpoi=106) 101 mg/dL 70-110 SODIUM NA-STAT [id number] 19:55:00* Test Item Value Reference Range Comments SODIUM (BEAKER) (test fggd=187) 140 meq/L 135-148 CALCIUM, [id number] 18:31:00* Test Item Value Reference Range Comments CALCIUM IONIZED (BEAKER) (test laun=575) 1.06 mmol/L 1.12-1.27 PH, BLOOD (BEAKER) (test bbgo=8060) 7.45 BLOOD GAS, [id number] 18:30:00* Test Item Value Reference Range Comments PH ARTERIAL (BEAKER) (test szch=749) 7.45 7.35-7.45 PCO2 ARTERIAL (BEAKER) (test tbtv=378) 37 mmHg 35-45 PO2 ARTERIAL (BEAKER) (test qshf=686) 382 mmHg 80-90 O2 SATURATION ARTERIAL (BEAKER) (test vebi=478) 99.8 % 96.0-97.0 HCO3 ARTERIAL (BEAKER) (test slzl=844) 25 mmol/L 21-29 BASE EXCESS ARTERIAL (BEAKER) (test dbvt=956) 1.3 mmol/L -2.0-3.0 PATIENT TEMPERATURE (BEAKER) (test nmxx=1062) 36.0 C FIO2 (BEAKER) (test xhou=6152) 100.0 % POTASSIUM-STAT [id number] 18:30:00* Test Item Value Reference Range Comments POTASSIUM (BEAKER) (test ysuk=016) 3.4 meq/L 3.6-5.5 BLOOD GAS, [id number] 18:29:00* Test Item Value Reference Range Comments PH VENOUS (BEAKER) (test ejhu=311) 7.43 7.32-7.42 PCO2 VENOUS (BEAKER) (test pfld=860) 41 mmHg 41-51 PO2 VENOUS (BEAKER) (test gmne=938) 53 mmHg 25-40 O2 SATURATION VENOUS (BEAKER) (test smlb=660) 89.8 % 40.0-70.0 HCO3 VENOUS (BEAKER) (test zorb=344) 27 mmol/L 21-29 BASE EXCESS VENOUS (BEAKER) (test xyqz=695) 2.1 mmol/L -2.0-3.0 PATIENT TEMPERATURE (BEAKER) (test fwow=7140) 36.0 C FIO2 (BEAKER) (test vyhk=9905) 100.0 % GLUCOSE-STAT [id number] 18:29:00* Test Item Value Reference Range Comments GLUCOSE RANDOM (BEAKER) (test gwrd=915) 105 mg/dL 70-110 SODIUM NA-STAT [id number] 18:29:00* Test Item Value Reference Range Comments SODIUM (BEAKER) (test raqu=060) 136 meq/L 135-148 HGB/HCT (H&H) - STAT [id number] 18:29:00* Test Item Value Reference Range Comments HEMOGLOBIN (BEAKER) (test oprq=287) 15.0 g/dL 13.0-16.8 HEMATOCRIT (BEAKER) (test vfpc=305) 44.0 % 40.0-50.0 URINE [id number] 14:15:00* Test Item Value Reference Range Comments CULTURE (BEAKER) (test jvwc=7397) 10-19,000 col/mL skin gabbie POCT-GLUCOSE [id number] 12:12:00* Test Item Value Reference Range Comments POC-GLUCOSE METER (BEAKER) (test zamn=9464) 119 mg/dL 70-110 TESTED AT [address] [address] POCT-GLUCOSE [id number] 08:25:00* Test Item Value Reference Range Comments POC-GLUCOSE METER (BEAKER) (test qphn=1859) 117 mg/dL 70-110 TESTED AT [address] [address] RAD, CHEST, 2 [id number] 23:56:00Reason for exam:->pre opFINAL REPORT EXAMINATION: 2 VIEW CHEST CLINICAL INDICATIONS: [...] further evaluation if warranted. Signed: Wilton Koenig MDReport Verified Date/Time: 06/19/2017 23:56:16 Reading Location: [address] Reading Room Electronically signed by: WILTON KOENIG M.D. on 05/2017 11:56 PM POCT-GLUCOSE [id number] 22:57:00* Test Item Value Reference Range Comments POC-GLUCOSE METER (BEAKER) (test dzxi=6987) 148 mg/dL 70-110 TESTED AT [address] [address] POCT-GLUCOSE [id number] 22:57:00* Test Item Value Reference Range Comments POC-GLUCOSE METER (BEAKER) (test jamk=5138) 96 mg/dL 70-110 TESTED AT [place] [id number] MUGA, CARD IMAGING, EQ, REST, WM, [id number] 17:22:00FINAL REPORT PROCEDURE: Resting RADIONUCLIDE VENTRICULOGRAM CPT CODE: 30354 INDICATION: Chest pain, CHF, dyspnea PROTOCOL: 21.3 mCi of Tc- 99m was injected intravenously as labeled autologous red blood cells. Equilibrium gated cardiac images were obtained in multiple views at rest. FINDINGS: The right ventricular size and contractility appear normal. The LV is dilated with global hypokinesis, worse near the apex. LV ejection fraction is 35 %. IMPRESSION: Abnormal resting radionuclide ventriculogram. Signed: Fidel Anthony Verified Date/Time: 06/19/2017 17:22:52 Reading Location: [address] Reading Room -GLUCOSE [id number] 12:52:00* Test Item Value Reference Range Comments POC-GLUCOSE METER (BEAKER) (test tynu=5416) 106 mg/dL 70-110 TESTED AT [address] [address] HEMOGLOBIN [id number] 10:08:00* Test Item Value Reference Range Comments HEMOGLOBIN A1C (BEAKER) (test jlpr=669) 7.4 % 4.3-6.1 POCT-GLUCOSE [id number] 08:05:00* Test Item Value Reference Range Comments POC-GLUCOSE METER (BEAKER) (test hqqt=9096) 94 mg/dL 70-110 TESTED AT [address] [address] LIPID [id number] 07:20:00* Test Item Value Reference Range Comments TRIGLYCERIDES (BEAKER) (test nqxh=652) 130 mg/dL CHOLESTEROL (BEAKER) (test jqol=183) 150 mg/dL HDL CHOLESTEROL (BEAKER) (test wbhb=014) 25 mg/dL LDL CHOLESTEROL CALCULATED (BEAKER) (test tdbn=505) 99 mg/dL Triglyceride Reference Range: Low Risk <150 Borderline 150-199 High Risk 200-499 Very High Risk >=500Cholesterol Reference Range: Low Risk <200 Borderline 200-239 High Risk >240HDL Cholesterol Reference Range: Low Risk >=60 High Risk <40LDL Cholesterol Reference Range: Optimal <100 Near Optimal 100-129 Borderline 130-159 High 160-189 Very High >=190 BLOOD GAS, [id number] 06:30:00* Test Item Value Reference Range Comments PH ARTERIAL (BEAKER) (test sbtr=398) 7.46 7.35-7.45 PCO2 ARTERIAL (BEAKER) (test jtua=606) 38 mmHg 35-45 PO2 ARTERIAL (BEAKER) (test bfru=121) 75 mmHg 80-90 O2 SATURATION ARTERIAL (BEAKER) (test mzle=811) 95.9 % 96.0-97.0 HCO3 ARTERIAL (BEAKER) (test xdoj=837) 26 mmol/L 21-29 BASE EXCESS ARTERIAL (BEAKER) (test ljce=871) 2.3 mmol/L -2.0-3.0 PATIENT TEMPERATURE (BEAKER) (test tklo=0214) 36.8 C FIO2 (BEAKER) (test bmfl=0893) 21.0 % [id number] 02:13:00* Test Item Value Reference Range Comments THYROID STIMULATING HORMONE (BEAKER) (test bkzn=661) 4.84 uIU/mL 0.35-4.94 HEPATITIS B SURFACE [id number] 23:03:00* Test Item Value Reference Range Comments HEPATITIS B SURFACE ANTIBODY (BEAKER) (test xvkf=505) < mIU/mL <8.0 HEPATITIS B SURFACE [id number] 22:41:00* Test Item Value Reference Range Comments HEPATITIS B SURFACE ANTIGEN (2) (BEAKER) (test iawj=5099) Nonreactive Nonreactive HEPATITIS C [id number] 22:41:00* Test Item Value Reference Range Comments HEPATITIS C ANTIBODY (BEAKER) (test msvt=750) Nonreactive Nonreactive HEPATITIS B CORE ANTIBODY, [id number] 22:41:00* Test Item Value Reference Range Comments HEPATITIS B CORE TOTAL ANTIBODY (BEAKER) (test dczg=332) Nonreactive Nonreactive HIV-1 ANTIGEN WITH HIV-1/2 [id number] 22:41:00* Test Item Value Reference Range Comments HIV-1 ANTIGEN WITH HIV 1\T\2 ANTIBODY (2) (BEAKER) (test wisz=9735) Nonreactive Nonreactive TROPONIN [id number] 22:38:00* Test Item Value Reference Range Comments TROPONIN I (BEAKER) (test wakp=224) 8.72 ng/mL 0.00-0.03 Troponin I (TnI) levels must be interpreted [...] failure, acidosis, acute neurological disease, and persistent tachyarrhythmia.URINALYSIS W/ [id number] 22: 25:00* Test Item Value Reference Range Comments COLOR (BEAKER) (test tfmh=728) Yellow CLARITY (BEAKER) (test rxbg=841) Clear SPECIFIC GRAVITY UA (BEAKER) (test isxd=754) 1.019 1.001-1.035 PH UA (BEAKER) (test qtqd=499) 5.5 5.0-8.0 PROTEIN UA (BEAKER) (test zfru=917) Negative Negative GLUCOSE UA (BEAKER) (test ivql=157) Negative Negative KETONES UA (BEAKER) (test wgxs=845) 20 mg/dL Negative BILIRUBIN UA (BEAKER) (test vvpe=792) Negative Negative BLOOD UA (BEAKER) (test vxmf=469) Negative Negative NITRITE UA (BEAKER) (test gwgc=976) Negative Negative LEUKOCYTE ESTERASE UA (BEAKER) (test roag=848) Negative Negative UROBILINOGEN UA (BEAKER) (test sazn=570) 6.0 mg/dL 0.2-1.0 RBC UA (BEAKER) (test pkkf=963) < /HPF WBC UA (BEAKER) (test fzip=213) < /HPF MUCUS (BEAKER) (test gocp=3004) Occasional SOURCE(BEAKER) (test kujw=8643) Urine, Voided [id number] 22:18:00* Test Item Value Reference Range Comments LIPASE (BEAKER) (test klim=157) 87 U/L 8-78 [id number] 22:18:00* Test Item Value Reference Range Comments AMYLASE (BEAKER) (test msjj=738) 77 U/L 25-125 COMPREHENSIVE METABOLIC [id number] 22:18:00* Test Item Value Reference Range Comments TOTAL PROTEIN (BEAKER) (test katv=910) 7.5 gm/dL 6.0-8.3 ALBUMIN (BEAKER) (test abhw=0188) 3.6 g/dL 3.5-5.0 ALKALINE PHOSPHATASE (BEAKER) (test icjb=201) 59 U/L 40-150 BILIRUBIN TOTAL (BEAKER) (test dqsv=261) 1.1 mg/dL 0.2-1.2 SODIUM (BEAKER) (test scib=824) 134 meq/L 136-145 POTASSIUM (BEAKER) (test dgow=694) 4.5 meq/L 3.5-5.1 CHLORIDE (BEAKER) (test kbhx=510) 99 meq/L 98-107 CO2 (BEAKER) (test ghme=088) 25 meq/L 22-29 BLOOD UREA NITROGEN (BEAKER) (test fjbk=553) 17 mg/dL 7-21 CREATININE (BEAKER) (test uchr=158) 0.84 mg/dL 0.57-1.25 GLUCOSE RANDOM (BEAKER) (test cqio=939) 114 mg/dL 70-105 CALCIUM (BEAKER) (test bztx=113) 9.2 mg/dL 8.4-10.2 AST (SGOT) (BEAKER) (test tdir=368) 36 U/L 5-34 ALT (SGPT) (BEAKER) (test gajd=870) 29 U/L 6-55 EGFR (BEAKER) (test xdqa=1603) 94 mL/min/1.73 sq m ESTIMATED GFR IS NOT ACCURATE CREATININE CLEARANCE IN PREDICTING GLOMERULAR FILTRATION RATE. ESTIMATED GFR IS NOT APPLICABLE FOR DIALYSIS PATIENTS. [id number] 22:17:00* Test Item Value Reference Range Comments PARTIAL THROMBOPLASTIN TIME (BEAKER) (test zhjc=405) 39.2 seconds 22.5-36.0 PROTHROMBIN TIME/[id number] 22:16:00* Test Item Value Reference Range Comments PROTIME (BEAKER) (test kqqp=936) 14.5 seconds 11.7-14.7 INR (BEAKER) (test knbk=439) 1.1 <=5.9 RECOMMENDED COUMADIN/WARFARIN INR THERAPY RANGESSTANDARD DOSE: 2.0 - 3.0 Includes: PROPHYLAXIS for venous thrombosis, systemic embolization; TREATMENT for venous thrombosis and/or pulmonary embolus.HIGH RISK: Target INR is 2.5-3.5 for patients with mechanical heart valves.CBC W/PLT COUNT & AUTO [id number] 22:02:00* Test Item Value Reference Range Comments WHITE BLOOD CELL COUNT (BEAKER) (test gdfa=946) 7.7 K/ L 3.5-10.5 RED BLOOD CELL COUNT (BEAKER) (test kqpu=915) 4.25 M/ L 4.63-6.08 HEMOGLOBIN (BEAKER) (test ahuo=434) 13.7 GM/DL 13.7-17.5 HEMATOCRIT (BEAKER) (test skpd=157) 38.9 % 40.1-51.0 MEAN CORPUSCULAR VOLUME (BEAKER) (test wcct=324) 91.5 fL 79.0-92.2 MEAN CORPUSCULAR HEMOGLOBIN (BEAKER) (test nprb=555) 32.2 pg 25.7-32.2 MEAN CORPUSCULAR HEMOGLOBIN CONC (BEAKER) (test qhut=249) 35.2 GM/DL 32.3- 36.5 RED CELL DISTRIBUTION WIDTH (BEAKER) (test isze=025) 12.1 % 11.6-14.4 PLATELET COUNT (BEAKER) (test vpak=485) 242 K/CU MM 150-450 MEAN PLATELET VOLUME (BEAKER) (test jxjr=686) 9.7 fL 9.4-12.4 NUCLEATED RED BLOOD CELLS (BEAKER) (test awnv=418) 0 /100 WBC 0-0 NEUTROPHILS RELATIVE PERCENT (BEAKER) (test elao=967) 61 % LYMPHOCYTES RELATIVE PERCENT (BEAKER) (test kvfq=121) 26 % MONOCYTES RELATIVE PERCENT (BEAKER) (test cutj=267) 10 % EOSINOPHILS RELATIVE PERCENT (BEAKER) (test hhjw=962) 2 % BASOPHILS RELATIVE PERCENT (BEAKER) (test vrmh=539) 0 % NEUTROPHILS ABSOLUTE COUNT (BEAKER) (test ejvp=556) 4.71 K/ L 1.78-5.38 LYMPHOCYTES ABSOLUTE COUNT (BEAKER) (test lnth=857) 2.02 K/ L 1.32-3.57 MONOCYTES ABSOLUTE COUNT (BEAKER) (test msec=624) 0.74 K/ L 0.30-0.82 EOSINOPHILS ABSOLUTE COUNT (BEAKER) (test dtvi=201) 0.17 K/ L 0.04-0.54 BASOPHILS ABSOLUTE COUNT (BEAKER) (test wrgq=236) 0.03 K/ L 0.01-0.08 IMMATURE GRANULOCYTES-RELATIVE PERCENT (BEAKER) (test jdbh=4736) 0 % 0-1 POCT-GLUCOSE [id number] 20:50:00* Test Item Value Reference Range Comments POC-GLUCOSE METER (BEAKER) (test zigi=6385) 114 mg/dL 70-110 [address]ED AT [address] [address] POCT-GLUCOSE [id number] 17:40:00* Test Item Value Reference Range Comments POC-GLUCOSE METER (BEAKER) (test oked=9090) 114 mg/dL 70-110 TESTED AT [address] [address] CAROTID DOPPLER [place] [address] Patient Name : CHRISTIE LYMAN MR #: [id number] : 1960 Age/Sex: 56/M Adm Physician : MP CARRERO MD Admit Date : Location : MED/SURG Room/Bed : [facility] _ REPORT: Cardiology Report DATE OF STUDY: DOPPLER SCAN OF THE CAROTID Left carotid artery shows moderate intimal thickening and plaquing without high-grade stenosis or flow impairment. Left vertebral flow appears to be antegrade. Right carotid artery shows mild intimal thickening and plaquing without high-grade stenosis or flow impairment. Right vertebral flow appears to be antegrade. CONCLUSIONS 1. No high- grade stenosis bilaterally. 2. Moderate intimal thickening and plaquing bilaterally. 3. Vertebral flow appears to be normal direction bilaterally. Job#: [id number] RI cc: MD MP VALLES MD Signature Date Dictated By: AMEE BRUSH MD Transcribed By: BRIAN on 06/17/17 <Electronically signed by AMEE BRUSH MD><<Signature on File>>06/18/17 0834 COPY TO: CHEST SINGLE (PORTABLE) [place] [address] Patient Name: CHRISTIE LYMAN MR #: [id number] : 1960 Age/Sex: 56/M Req #: [id number] Adm Physician: MP CARRERO MD Ordered by: MP CARRERO MD Report #: [id number] Location: [facility] Room/Bed: [place] [address] Procedure: [id number] DX/ CHEST SINGLE (PORTABLE) Exam Date: 06/14/17 Exam Time: 0600 REPORT STATUS: Signed CHEST SINGLE (PORTABLE), 06/14/2017 5: 00 AM Technique: CHEST SINGLE (PORTABLE) Comparison: None available. Clinical history: CHF versus pneumonia Findings: See Impression Impression: 1. Mildly enlarged cardiac silhouette. 2. Diffuse lower lung opacities, favor edema with bibasilar atelectasis and layering effusions. Cannot exclude underlying infection in the proper clinical context. Signed by: Dr Agustin Major MD on 06/14/2017 6:46 AM Dictated By: AGUSTIN MAJOR MD 0646 Transcribed By: SHIRLEY on 06/14/17645 COPY TO: MP CARRERO MD CHEST 2 VIEWS [place] [address] Patient Name: CHRISTIE LYMAN MR #: [id number] : 1960 Age/Sex: 56/M Req #: [id number] Adm Physician: MP CARRERO MD Ordered by: AMEE BRUSH MD Report #: [id number] Location: [facility] Room/Bed: [place] [address] _ Procedure: [id number] DX/CHEST 2 VIEWS Exam Date: 06/13/17 Exam Time: 0630 REPORT STATUS: Signed PROCEDURE: Frontal and lateral views of the chest. COMPARISON: Chest 2 views 06/12/2017. INDICATIONS: SHORTNESS OF BREATH FINDINGS: Lines/tubes: None. Lungs: Bibasilar airspace opacities. No parenchymal mass. Pleura: Small bilateral pleural effusions. No pneumothorax. Heart and mediastinum : The heart and the mediastinum are normal. Bones: No acute bony abnormality. Degenerative changes of the thoracic spine. IMPRESSION: Bibasilar airspace opacities likely represent a developing pneumonia. Dictated by: Karl Villalba M.D. on 06/13/2017 at 8:00 Electronically approved by: Karl Villalba M.D. on 06/13/2017 at 8:00 Dictated By : KARL VILLALBA MD 08 Transcribed By: MILES on 06/13/17 08 COPY TO: AMEE BRUSH MD ECHO COMPLETE (ECHOCARDIOGRAM) [place] [address] Patient Name : CHRISTIE LYMAN MR #: [id number] : 1960 Age/Sex: 56/M Adm Physician : MP CARRERO MD Admit Date : 06/12/17 Location : MED/SURG Room/Bed : [facility] REPORT: Cardiology Report DATE OF STUDY: ECHOCARDIOGRAM M-MODE: Dilated left atrium. Dilated left ventricle. Diminished left ventricular contractility. Aortic sclerosis. Normal mitral valve. No pericardial effusion. SECTOR SCAN: Dilated left atrium and left ventricle severely diminished left ventricular contractility. Ejection fraction is approximately 20%. Aortic valve sclerotic. Mitral and tricuspid valves are normal. There is no pericardial effusion. CAROTID DOPPLER STUDY WITH COLOR: Trace tricuspid regurgitation. CONCLUSIONS 1. Dilated left ventricle with severely diminished left ventricular contractility. Estimated ejection fraction 20%. 2. Trace mitral regurgitation with dilated left atrium. 3. Trace tricuspid regurgitation. 4. Aortic sclerosis without stenosis. Job#: [id number] RI cc: MP CARRERO MD Signature Date Dictated By: AMEE BRUSH MD Transcribed By: EDS on 06/13/17 <Electronically signed by AMEE BRUSH MD><<Signature on File>>06/18/17 0834 COPY TO: CHEST 2 VIEWS [place] [address] Patient Name: CHRISTIE LYMAN MR #: [id number] : 1960 Age/Sex: 56/M Req #: [id number] Adm Physician: Ordered by: WILTON DOMINGUEZ MD Report #: [id number] Location: ER Room/Bed : Procedure: [id number] DX/CHEST 2 VIEWS Exam Date: 06/12/17 Exam Time: 1400 REPORT STATUS: Signed PROCEDURE: Frontal and lateral views of the chest. COMPARISON: None. INDICATIONS: SOB, PLEURAL EFFUSION, PLATE LIKE ATELACTASIS FINDINGS: Lines/tubes: None. Lungs: Mild prominence of the pulmonary vasculature. Bibasilar subsegmental atelectasis. Pleura: There is no pneumothorax. Bilateral pleural effusions. Heart and mediastinum: The cardiac silhouette is nonenlarged. Bones: No acute bony abnormality. IMPRESSION: 1. Bilateral small pleural effusions. 2. Mild bilateral pulmonary venous congestion. Amrita Townsend M.D. Dictated by: Amrita Townsend M.D. on 2017 at 14:45 Electronically approved by: Amrita Townsend M.D. on 06/12/2017 at 14:45 Dictated By: ANDREW TOWNSEND MD, MD 1445 Transcribed By : MILES on 06/12/17 1445 COPY TO: WILTON DOMINGUEZ MD
[2017-07-02] MEDS ORDERED: PANTOPRAZOLE 40 MG 10ML VIAL IV STA (21:43)
[2017-07-02] MEDS ORDERED: ONDANSETRON HCL INJ 2 MG/ML VIAL IV STA (21:43)
[2017-07-02] MEDS ORDERED: SODIUM CHLORIDE 0.9% 1000ML 1,000 ML IV STA (21:43)
[2017-07-02] MEDS ORDERED: DIATRIZOATE MEGL/DIATRIZOA SOD 30 ML BTL PO ONE (22:16)
[2017-07-02] MEDS ORDERED: ASPIRIN EC81 MG PO (22:18)
[2017-07-02] MEDS ORDERED: ATORVASTATIN CA20 MG PO (22:18)
[2017-07-02] MEDS ORDERED: FUROSEMIDE40 MG PO (22:18)
[2017-07-02] MEDS ORDERED: METOPROLOL TART25 MG PO (22:18)
[2017-07-02] MEDS ORDERED: TYLENOL WITH C1 EACH PO (22:18)
--- NOTE | 2017-07-02 22:27 | Diagnostic Imaging Report ---
ABDOMEN-1VIEW (KUB) Clinical history: Stomach pain Technique: AP view abdomen Comparison: None Findings: Abdomen: Nonobstructive bowel gas pattern. Mild stool is seen in the right colon and rectum. No evidence of free air. Other: No acute findings. Partially imaged median sternotomy wires. Vascular calcifications. Impression: Nonobstructive bowel gas pattern. Signed by: Dr Nancy Ramos MD on 07/02/2017 10:24 PM
[2017-07-02 22:32] LABS: BASOPHILS # (AUTO) 0.1 (0.0-0.1); BASOPHILS % 0.5 % (0.0-1.0); EOSINOPHILS # (AUTO) 0.2 (0.0-0.4); HEMOGLOBIN 12.2 g/dL (14.0-18.0); LYMPHOCYTES % 16.5 % (18.0-39.1); MEAN CORPUSCULAR HEMOGLOBIN 31.5 pg (28-32); MEAN CORPUSCULAR HGB CONC 33.9 g/dL (31-35); MONOCYTES # (AUTO) 0.7 (0.2-0.8); MONOCYTES % 5.4 % (4.4-11.3); NEUTROPHILS % 75.1 % (38.7-80.0); PLATELET COUNT 328 x10e3/uL (140-360); RED BLOOD COUNT 3.87 x10e6/uL (4.3-5.7); RED CELL DISTRIBUTION WIDTH 13.3 % (11.7-14.4)
[2017-07-02 22:45] LABS: INR 1.2; PROTHROMBIN TIME 14.3 seconds (11.9-14.5)
[2017-07-02 22:46] LABS: PARTIAL THROMBOPLASTIN TIME 34.1 seconds (23.8-35.5)
[2017-07-02 22:56] LABS: ALANINE AMINOTRANSFERASE 43 IU/L (0-55); ALBUMIN 3.6 g/dL (3.5-5.0); ALBUMIN/GLOBULIN RATIO 0.8 (0.8-2.0); ALKALINE PHOSPHATASE 107 IU/L (40-150); AMYLASE 148 U/L (25-125); ANION GAP 15.1 mmol/L (8-16); BLOOD UREA NITROGEN 16 mg/dL (7-26); BUN/CREATININE RATIO 18 (6-25); CALCIUM 9.6 mg/dL (8.4-10.2); CARBON DIOXIDE 28 mmol/L (22-29); CHLORIDE 96 mmol/L (98-107); CREATINE KINASE 38 IU/L (30-200); CREATININE, SERUM 0.87 mg/dL (0.72-1.25); EST GLOMERULAR FILTRATION RATE > 60 ML/MIN (60-); GLUCOSE 178 mg/dL (74-118); LIPASE 140 U/L (8-78); MAGNESIUM 1.6 MG/DL (1.3-2.1); POTASSIUM 4.1 mmol/L (3.5-5.1); SODIUM 135 mmol/L (136-145)
--- NOTE | 2017-07-02 23:02 | Diagnostic Imaging Report ---
CHEST SINGLE (PORTABLE), 07/02/2017 9:43 PM Technique: CHEST SINGLE (PORTABLE) Comparison: 06/13/2017 Clinical history: Abdominal pain Findings: See Impression Impression: 1. Stable mildly enlarged cardiomediastinal silhouette poststernotomy. 2. No edema or consolidation. 3. Possible small left effusion. 4. Lucency along the left hemidiaphragm, favor gastric bubble. If there is concern for free air, recommend dedicated upright or decubitus abdominal radiographs. Signed by: Dr Nancy Ramos MD on 07/02/2017 10:58 PM
[2017-07-02] MEDS ORDERED: IOPAMIDOL 370 MG/ML 200 ML INFUS..BTL INJ ONE (23:37)
[2017-07-02] MEDS ORDERED: SODIUM CHLORIDE 0.9% 50ML 50 ML ONE (23:37)
--- NOTE | 2017-07-03 00:49 | Diagnostic Imaging Report ---
EXAM: CT ABDOMEN/PELVIS W DATE: 07/03/2017 12:02 AM INDICATION: \S\ABD PAIN, 2 WEEKS S/P CABG \[id number] \S\0007 COMPARISON: None TECHNIQUE: The abdomen and pelvis were scanned using a multidetector helical scanner. Coronal and sagittal reformations were obtained. Routine protocol performed. IV Contrast: 100 ml Isovue 370 FINDINGS: Examination is degraded by streak artifact in the lower thorax/upper abdomen LOWER THORAX: Small pleural effusions with associated atelectasis. Mild cardiomegaly status post sternotomy. There is mild substernal fluid and tiny focus of gas presumably related to recent procedure. LIVER/BILIARY: Streak artifact. Grossly unremarkable. GALLBLADDER: Unremarkable SPLEEN: Unremarkable PANCREAS: Unremarkable ADRENALS: No nodules KIDNEYS: Symmetric perfusion. No enhancing masses. No hydronephrosis. GI TRACT: No wall thickening or evidence of obstruction. VESSELS: Mild atherosclerotic changes PERITONEUM/RETROPERITONEUM: No free air or fluid LYMPH NODES: No lymphadenopathy REPRODUCTIVE ORGANS/BLADDER: Gas within the bladder, which may be related to recent instrumentation. SOFT TISSUES: Unremarkable BONES: No suspicious bone lesions. IMPRESSION: 1. No acute abnormality in the abdomen or pelvis. 2. Partially imaged presumed postsurgical changes status post recent CABG. Tiny bilateral effusions and mild substernal fluid. Signed by: Dr Nancy Ramos MD on 07/03/2017 12:46 AM
[2017-07-03 00:56] LABS: BILIRUBIN,URINE NEGATIVE (NEGATIVE); KETONES,URINE NEGATIVE (NEGATIVE); LEUKOCYTE ESTERASE ,URINE NEGATIVE (NEGATIVE); NITRITE,URINE NEGATIVE (NEGATIVE); PROTEIN,URINE DIPSTICK NEGATIVE (NEGATIVE); URINE UROBILINOGEN 8 mg/dL (0.2 - 1)
[2017-07-03 00:58] LABS: CLARITY,URINE CLEAR (CLEAR); COLOR,URINE YELLOW (YELLOW)
[2017-07-03 01:07] LABS: BACTERIA,URINE RARE /HPF; EPITHELIAL CELLS,URINE RARE /LPF; MUCUS,URINE FEW (RARE); RBC,URINE 0-5 /HPF (0-5); WBC,URINE (MAN) 0-5 /HPF (0-5)
[2017-07-03 01:57] VITALS: BP 105/64
== END 2017-07-03 01:58 | disposition home or self-care (01) ==
LOC: ER 21:09
DX: K59.00 Constipation, unspecified (principal); R10.84 Generalized abdominal pain; E66.9 Obesity, unspecified; Z68.30 Body mass index [BMI] 30.0-30.9, adult; E11.9 Type 2 diabetes mellitus without complications; I11.0 Hypertensive heart disease with heart failure; I50.9 Heart failure, unspecified; I25.2 Old myocardial infarction; Z95.1 Presence of aortocoronary bypass graft; Z79.82 Long term (current) use of aspirin; Z95.818 Presence of other cardiac implants and grafts
CPT/HCPCS: 36415; 71045; 74018; 74177; 80053; 81001; 82150; 82550; 82553; 83605; 83690; 83735; 83880; 84484; 85025; 85610; 85730; 87086; 99284; J2405; J7030; Q9967

== ENCOUNTER 2017-08-07 19:13 | Inpatient (IN) | payer OTHER ==
[~2017-08-07] VITALS: Ht 165.1 cm; Wt 73.5 kg
[~2017-08-07 19:13] MED LIST changes: +ASPIRIN EC81 MG PO; +ATORVASTATIN CA20 MG PO; +FUROSEMIDE40 MG PO; +METOPROLOL TART25 MG PO; +TYLENOL WITH C1 EACH PO
--- OUTSIDE RECORDS SUMMARY | 2017-08-07 19:17 | XMS REPORT | Continuity of Care Document ---
Author Author [facility] Organization [facility] Address [address] [place] [address] Phone Unavailable Care Team Providers Care Exhibit Electrician Name Role Phone PATITO GRANADOS PCP Insurance Providers Guarantor ShieldsChristie Address [address] [place] [address] Email [email or web address] Payer [facility] Policy Number [id number] Subscriber's Name Christie Shields Relationship 18 Self / Same As Patient Effective Date 17 Expiration Date 17 Advance Directives Directive Response Recorded Date/Time Does the patient have an advance directive? No 06/15/17 1:26pm If yes, is advance directive on file with [facility]? No 06/15/17 1:26pm If not on file with [facility] will patient provide a copy? Yes 07/03/17 12:17am Do you have a Directive to Physician? No 07/03/17 12:17am Do you have a Medical Power of Dialysis Nurse? No 07/03/17 12:17am Do you have an out of hospital Do Not Resuscitate Order? No 07/03/17 12:17am Do you have any special needs we should be aware of? No 07/03/17 12:17am Do you have a support person here with you today? Yes 07/03/17 12:17am Did patient receive Notice of Privacy Practices? Yes 07/03/17 12:17am Did patient receive patient rights and responsibilities? Yes 07/03/17 12:17am Problems No problem information available. Medications Current Home Medications Medication Dose Units Route Directions Days Qty Instructions Start Date Acetaminophen With Codeine (Tylenol With Codeine #3 Tablet) 1 Each Tablet 300 Mg Oral Every 4 Hours as needed for Pain Aspirin (Aspirin Ec) 81 Mg Tablet.dr 81 Mg Oral Daily 30 Tab Atorvastatin Calcium 20 Mg Tablet 40 Mg Oral Bedtime 30 Tab Furosemide 40 Mg Tablet 40 Mg Oral Twice A Day 30 Tab Glyburide 5 Mg Tablet 2.5 Mg Oral Daily 30 Tab Metformin Hcl 500 Mg Tablet 1,000 Mg Oral Twice A Day 60 Tab Metoprolol Tartrate 25 Mg Tablet 12.5 Mg Oral Twice A Day Family History Relationship Condition Age at Onset [...] information available. Plan of Care Discharge Date 07/03/17 1:58am Disposition HOME, SELF-CARE Condition at Discharge Stable Instructions/Education Provided Abdominal Pain - Adult Forms Provided Work/School Excuse Prescriptions See Medication Section Referrals PATITO GRANADOS Address: [address] [place] [id number] Additional Instructions/Education FOLLOW UP WITH YOUR PRIMARY CARE DOCTOR ON FRIDAY RETURN IF SYMPTOMS WORSEN Functional Status No functional status information available. Allergies, Adverse Reactions, Alerts No known allergies. Immunizations No immunization information available. Vital Signs Acute Vital Signs Vital Response Date/Time Temperature (Fahrenheit) 97.8 degrees F (97.6 - 99.5) 07/03/2017 1:57am Pulse Pulse Rate (adult) 64 bpm (60 - 90) 07/03/2017 1:57am Respiratory Rate 20 bpm (12 - 24) 07/03/2017 1:57am Blood Pressure 105/64 mm Hg 07/03/2017 1:57am Height 5 ft 5 in 07/02/2017 9:17pm Weight 183 lb 07/02/2017 9:17pm Body Mass Index 30.5 kg/m^2 07/02/2017 9:17pm Results Laboratory Results Test Name Result Units Flags Reference Collection Date/Time Result Date/ Time Comments D-Dimer Quantitative (PE/DVT) 1.50 ug/mLFEU H 0.00-0.45 06/12/2017 1: 55pm 06/12/2017 3:05pm Bedside Glucose 194 mg/dL H 70-120 06/18/2017 11:07am 06/18/2017 11: 32am Meter ID: [id number] Hemoglobin A1c Percent 7.4 % H 4.0-7.0 06/15/2017 5:45am 06/15/2017 6: 48am Ammonia 44 UG/DL 31-123 06/12/2017 9:55pm 06/12/2017 10:44pm Triglycerides Level 181 MG/DL H 0-149 06/13/2017 [...] H 3.9-4.7 06/13/2017 5:15am 06/13/2017 6: 24am Free Thyroxine Index 2.7108 1.4-3.8 06/12/2017 1:55pm 06/12/2017 8: 28pm Thyroxine (T4) 9.93 ug/dL 4.5-10.9 06/12/2017 1:55pm 06/12/2017 8:28pm Triiodothyronine (T3) Uptake 27.30 % 22.50-37.00 06/12/2017 1:55pm 8:28pm Thyroid Stimulating Hormone (TSH) 2.942 uIU/mL 0.350-4.940 06/12/2017 1: 55pm 06/12/2017 8:28pm Anti-Nuclear Antibody Screen Negative . 06/12/2017 1:55pm 06/14/2017 11:12pm Negative <1:80 Borderline 1:80 Positive >1:80 Performed at: - [facility] [address] [id number] Supervisor Industrial Garment: Ranulfo Hammonds MD, Phone: [phone] Stool Occult Blood NEGATIVE NEGATIVE 06/16/2017 4:30pm 06/16/2017 5: 02pm White Blood Count 11.96 x10e3/uL H 4.8-10.8 07/02/2017 9:52pm 2017 10:32pm Red Blood Count 3.87 x10e6/uL L 4.3-5.7 07/02/2017 9:52pm 07/02/2017 10: 32pm Hemoglobin 12.2 g/dL L 14.0-18.0 07/02/2017 9:52pm 07/02/2017 10:32pm Hematocrit 36.0 % L 38.2-49.6 07/02/2017 9:52pm 07/02/2017 10:32pm Mean Corpuscular Volume 93.0 fL 81-99 07/02/2017 9:52pm 07/02/2017 10: 32pm Mean Corpuscular Hemoglobin 31.5 pg 28-32 07/02/2017 9:52pm 07/02/2017 10:32pm Mean Corpuscular Hemoglobin Concent 33.9 g/dL 31-35 07/02/2017 9:52pm 07/02/2017 10:32pm Red Cell Distribution Width 13.3 % 11.7-14.4 07/02/2017 9:52pm 2017 10:32pm Platelet Count 328 x10e3/uL 140-360 07/02/2017 9:52pm 07/02/2017 10: 32pm Neutrophils (%) (Auto) 75.1 % 38.7-80.0 07/02/2017 9:52pm 07/02/2017 10 :32pm Lymphocytes (%) (Auto) 16.5 % L 18.0-39.1 07/02/2017 9:52pm 07/02/2017 10:32pm Monocytes (%) (Auto) 5.4 % 4.4-11.3 07/02/2017 9:52pm 07/02/2017 10: 32pm Eosinophils (%) (Auto) 2.0 % 0.0-6.0 07/02/2017 9:52pm 07/02/2017 10: 32pm Basophils (%) (Auto) 0.5 % 0.0-1.0 07/02/2017 9:52pm 07/02/2017 10: 32pm IM GRANULOCYTES % 0.5 % 0.0-1.0 07/02/2017 9:52pm 07/02/2017 10:32pm Neutrophils # (Auto) 9.0 H 2.1-6.9 07/02/2017 9:52pm 07/02/2017 10: 32pm Lymphocytes # (Auto) 2.0 1.0-3.2 07/02/2017 9:52pm 07/02/2017 10: 32pm Monocytes # (Auto) 0.7 0.2-0.8 07/02/2017 9:52pm 07/02/2017 10:32pm Eosinophils # (Auto) 0.2 0.0-0.4 07/02/2017 9:52pm 07/02/2017 10: 32pm Basophils # (Auto) 0.1 0.0-0.1 07/02/2017 9:52pm 07/02/2017 10:32pm Absolute Immature Granulocyte (auto 0.06 x10e3/uL 0-0.1 07/02/2017 9: 52pm 07/02/2017 10:32pm Prothrombin Time 14.3 seconds 11.9-14.5 07/02/2017 9:52pm 07/02/2017 10 :46pm Prothromb Time International Ratio 1.20 07/02/2017 9:52pm 2017 10:46pm Oral Anticoagulant Therapy INR Values: 1. Low Intensity Therapy 1.5 - 2.0 2. Moderate Intensity Therapy 2.0 - 3.0 3. High Intensity Therapy(1) 2.5 - 3.5 4. High Intensity Therapy(2) 3.0 - 4.0 5. Panic Value INR > 5.0 Activated Partial Thromboplast Time 34.1 seconds 23.8-35.5 07/02/2017 9: 52pm 07/02/2017 10:47pm Urine Color YELLOW YELLOW 07/03/2017 12:50am 07/03/2017 12:58am Urine Clarity CLEAR CLEAR 07/03/2017 12:50am 07/03/2017 12:58am Urine Specific [place] 1.010 1.010-1.025 07/03/2017 12:50am 2017 12:58am Urine pH 6 5 - 7 07/03/2017 12:50am 07/03/2017 12:58am Urine Leukocyte Esterase NEGATIVE NEGATIVE 07/03/2017 12:50am 2017 12:58am Urine Nitrite NEGATIVE NEGATIVE 07/03/2017 12:50am 07/03/2017 12: 58am Urine Protein NEGATIVE NEGATIVE 07/03/2017 12:50am 07/03/2017 12: 58am Urine Glucose (UA) NEGATIVE NEGATIVE 07/03/2017 12:50am 07/03/2017 12 :58am Urine Ketones NEGATIVE NEGATIVE 07/03/2017 12:50am 07/03/2017 12: 58am Urine Urobilinogen 8 mg/dL H 0.2 - 1 07/03/2017 12:50am 07/03/2017 12: 58am Urine Bilirubin NEGATIVE NEGATIVE 07/03/2017 12:50am 07/03/2017 12: 58am Urine Blood NEGATIVE NEGATIVE 07/03/2017 12:50am 07/03/2017 12:58am Urine WBC 0-5 /HPF 0-5 07/03/2017 12:50am 07/03/2017 1:07am Urine RBC 0-5 /HPF 0-5 07/03/2017 12:50am 07/03/2017 1:07am Urine Bacteria RARE /HPF NONE 07/03/2017 12:50am 07/03/2017 1:07am Urine Epithelial Cells RARE /LPF NONE 07/03/2017 12:50am 07/03/2017 1: 07am Urine Mucus FEW H RARE 07/03/2017 12:50am 07/03/2017 1:07am Sodium Level 135 mmol/L L 136-145 07/02/2017 9:52pm 07/02/2017 10:57pm Potassium Level 4.1 mmol/L 3.5-5.1 07/02/2017 9:52pm 07/02/2017 10: 57pm Chloride Level 96 mmol/L L 98-107 07/02/2017 9:52pm 07/02/2017 10:57pm Carbon Dioxide Level 28 mmol/L 22-07/02/2017 9:52pm 07/02/2017 10: 57pm Anion Gap 15.1 mmol/L 8-16 07/02/2017 9:52pm 07/02/2017 10:57pm Blood Urea Nitrogen 16 mg/dL 7-07/02/2017 9:52pm 07/02/2017 10:57pm Creatinine 0.87 mg/dL 0.72-1.25 07/02/2017 9:52pm 07/02/2017 10:57pm BUN/Creatinine Ratio 18 6-25 07/02/2017 9:52pm 07/02/2017 10:57pm Estimat Glomerular Filtration Rate > 60 ML/MIN 60- 07/02/2017 9:52pm 10:57pm Ranges were taken from the National Kidney Disease Education Program and the National Kidney Foundation literature. Reference ranges: 60 or greater: Normal 16-59 (for 3 consecutive months): Chronic kidney disease 15 or less: Kidney failure Glucose Level 178 mg/dL H 74-118 07/02/2017 9:52pm 07/02/2017 10:57pm Calcium Level 9.6 mg/dL 8.4-10.2 07/02/2017 9:52pm 07/02/2017 10:57pm Lactic Acid Level 7.6 MG/DL 4.5-19.8 07/02/2017 11:50pm 07/03/2017 12: 12am Magnesium Level 1.6 MG/DL 1.3-2.1 07/02/2017 9:52pm 07/02/2017 10:57pm Total Bilirubin 1.3 mg/dL H 0.2-1.2 07/02/2017 9:52pm 07/02/2017 10: 57pm Aspartate Amino Transf (AST/SGOT) 46 IU/L H 5-34 07/02/2017 9:52pm 07/02 10:57pm Alanine Aminotransferase (ALT/SGPT) 43 IU/L 0-55 07/02/2017 9:52pm 10:57pm Total Protein 8.3 g/dL H 6.5-8.1 07/02/2017 9:52pm 07/02/2017 10:57pm Albumin 3.6 g/dL 3.5-5.0 07/02/2017 9:52pm 07/02/2017 10:57pm Globulin 4.7 g/dL H 2.3-3.5 07/02/2017 9:52pm 07/02/2017 10:57pm Albumin/Globulin Ratio 0.8 0.8-2.0 07/02/2017 9:52pm 07/02/2017 10: 57pm Alkaline Phosphatase 107 IU/L 40-150 07/02/2017 9:52pm 07/02/2017 10: 57pm B-Type Natriuretic Peptide 801.9 pg/mL H 0-100 07/02/2017 9:52pm 2017 11:06pm Creatine Kinase 38 IU/L 30-200 07/02/2017 9:52pm 07/02/2017 10:57pm Creatine Kinase MB 1.20 ng/mL 0.00-5.00 07/02/2017 9:52pm 07/02/2017 11 :06pm Troponin I 0.225 ng/mL 0-0.300 07/02/2017 9:52pm 07/02/2017 11:06pm Amylase Level 148 U/L H 25-125 07/02/2017 9:52pm 07/02/2017 10:57pm Lipase 140 U/L H 8-78 07/02/2017 9:52pm 07/02/2017 10:57pm Procedures Procedure Status Date Provider(s) MEASURE OF CARDIAC SAMPL & PRESSURE, L HEART, PERC APPROACH Completed AMEE BRUSH MD FLUOROSCOPY OF MULT COR ART USING L OSM CONTRAST Completed 06/16/17 AMEE BRUSH MD X-ray of chest, two views Active 06/12/17 WILTON DOMINGUEZ MD X-ray of chest, two views Active 06/13/17 AMEE BRUSH MD Computed tomography of abdomen and pelvis with contrast Active 07/03/17 RICARDO KNUTSON MD Encounters Encounter Location Arrival/Admit Date Discharge/Depart Date Attending Provider Departed Emergency Room [facility] 07/02/17 9:09pm 1:58am RICARDO KNUTSON MD Discharged Inpatient [facility] 06/12/17 5:20pm 06/18/17 3:25pm MP CARRERO MD
[2017-08-07 20:50] LABS: BASOPHILS # (AUTO) 0.1 (0.0-0.1); BASOPHILS % 0.7 % (0.0-1.0); EOSINOPHILS # (AUTO) 0.3 (0.0-0.4); EOSINOPHILS % 4.4 % (0.0-6.0); HEMATOCRIT 33.7 % (38.2-49.6); HEMOGLOBIN 11.9 g/dL (14.0-18.0); LYMPHOCYTES # (AUTO) 1.8 (1.0-3.2); LYMPHOCYTES % 23.7 % (18.0-39.1); MEAN CORPUSCULAR HEMOGLOBIN 30.7 pg (28-32); MEAN CORPUSCULAR HGB CONC 35.3 g/dL (31-35); MEAN CORPUSCULAR VOLUME 87.1 fL (81-99); MONOCYTES # (AUTO) 0.6 (0.2-0.8); MONOCYTES % 7.4 % (4.4-11.3); NEUTROPHILS # (AUTO) 4.8 (2.1-6.9); NEUTROPHILS % 63.5 % (38.7-80.0); PLATELET COUNT 230 x10e3/uL (140-360); RED BLOOD COUNT 3.87 x10e6/uL (4.3-5.7); RED CELL DISTRIBUTION WIDTH 12.7 % (11.7-14.4)
[2017-08-07 20:52] LABS: COLOR,URINE YELLOW (YELLOW); KETONES,URINE NEGATIVE (NEGATIVE); LEUKOCYTE ESTERASE ,URINE NEGATIVE (NEGATIVE); NITRITE,URINE NEGATIVE (NEGATIVE); PROTEIN,URINE DIPSTICK NEGATIVE (NEGATIVE); URINE UROBILINOGEN 1 mg/dL (0.2 - 1)
[2017-08-07 20:55] LABS: CLARITY,URINE SL CLOUDY (CLEAR)
[2017-08-07 20:56] LABS: BILIRUBIN,URINE 1+ (NEGATIVE)
[2017-08-07 21:00] LABS: INR 1.1; PARTIAL THROMBOPLASTIN TIME 30.8 seconds (23.8-35.5); PROTHROMBIN TIME 13.4 seconds (11.9-14.5)
[2017-08-07 21:03] LABS: MAGNESIUM 1.7 MG/DL (1.3-2.1)
[2017-08-07 21:09] LABS: BACTERIA,URINE FEW /HPF; EPITHELIAL CELLS,URINE RARE /LPF; WBC,URINE (MAN) 0-5 /HPF (0-5)
[2017-08-07 21:09] LABS: ALANINE AMINOTRANSFERASE 15 IU/L (0-55); ALBUMIN 3.5 g/dL (3.5-5.0); ALKALINE PHOSPHATASE 61 IU/L (40-150); ANION GAP 16.7 mmol/L (8-16); BLOOD UREA NITROGEN 16 mg/dL (7-26); BUN/CREATININE RATIO 18 (6-25); CALCIUM 9.2 mg/dL (8.4-10.2); CARBON DIOXIDE 23 mmol/L (22-29); CHLORIDE 104 mmol/L (98-107); CREATINE KINASE 24 IU/L (30-200); CREATININE, SERUM 0.88 mg/dL (0.72-1.25); EST GLOMERULAR FILTRATION RATE > 60 ML/MIN (60-); GLUCOSE 126 mg/dL (74-118); POTASSIUM 3.7 mmol/L (3.5-5.1); SODIUM 140 mmol/L (136-145)
[2017-08-07 21:29] LABS: THYROID STIMULATING HORMONE 2.172 uIU/mL (0.350-4.940)
--- NOTE | 2017-08-07 21:35 | Diagnostic Imaging Report ---
EXAM: CHEST SINGLE (PORTABLE), AP 1 view INDICATION: Life vessel went off, shocked COMPARISON: AP view of the chest July 02, [address] of the abdomen and pelvis July 03, 2017 FINDINGS: LINES/TUBES: Median sternotomy wires. LUNGS: No consolidations or edema. PLEURA: No effusions or pneumothorax. HEART AND MEDIASTINUM: Normal size and contour. BONES AND SOFT TISSUES: No acute findings. IMPRESSION: No acute thoracic abnormality. Signed by: Dr. Danica Yates M.D. on 08/07/2017 9:31 PM
[2017-08-07] MEDS ORDERED: ONDANSETRON HCL INJ 2 MG/ML VIAL IV PRN (22:15)
[2017-08-07] MEDS ORDERED: MORPHINE SULFATE 2 MG/ML SYR IV PRN (22:15)
[2017-08-07] MEDS ORDERED: DEXTROSE 50% SYRINGE 50 ML IV PRN (22:30)
[2017-08-08 04:09] LABS: BASOPHILS # (AUTO) 0.1 (0.0-0.1); BASOPHILS % 0.7 % (0.0-1.0); EOSINOPHILS # (AUTO) 0.4 (0.0-0.4); EOSINOPHILS % 5.3 % (0.0-6.0); HEMATOCRIT 34.5 % (38.2-49.6); HEMOGLOBIN 12.2 g/dL (14.0-18.0); LYMPHOCYTES # (AUTO) 2.4 (1.0-3.2); MEAN CORPUSCULAR HEMOGLOBIN 30.5 pg (28-32); MEAN CORPUSCULAR HGB CONC 35.4 g/dL (31-35); MEAN CORPUSCULAR VOLUME 86.3 fL (81-99); MONOCYTES # (AUTO) 0.6 (0.2-0.8); MONOCYTES % 7.6 % (4.4-11.3); NEUTROPHILS # (AUTO) 3.9 (2.1-6.9); NEUTROPHILS % 53.1 % (38.7-80.0); PLATELET COUNT 210 x10e3/uL (140-360); RED CELL DISTRIBUTION WIDTH 12.4 % (11.7-14.4)
[2017-08-08 04:23] LABS: ALANINE AMINOTRANSFERASE 15 IU/L (0-55); ALBUMIN 3.5 g/dL (3.5-5.0); ALKALINE PHOSPHATASE 75 IU/L (40-150); ANION GAP 14.6 mmol/L (8-16); BLOOD UREA NITROGEN 16 mg/dL (7-26); BUN/CREATININE RATIO 20 (6-25); CALCIUM 9.6 mg/dL (8.4-10.2); CARBON DIOXIDE 25 mmol/L (22-29); CHLORIDE 101 mmol/L (98-107); CREATININE, SERUM 0.81 mg/dL (0.72-1.25); EST GLOMERULAR FILTRATION RATE > 60 ML/MIN (60-); GLUCOSE 122 mg/dL (74-118); MAGNESIUM 1.6 MG/DL (1.3-2.1); POTASSIUM 3.6 mmol/L (3.5-5.1); SODIUM 137 mmol/L (136-145)
[2017-08-08 04:30] LABS: CREATINE KINASE MB 1.6 ng/mL (0-5.0)
[2017-08-08] MEDS ORDERED: INSULIN REGULAR, HUMAN 100 UNIT/1 ML 3ML VIAL SQ SCH (07:30)
[2017-08-08] MEDS ORDERED: DEXTROSE 50% SYRINGE 50 ML IV PRN (07:45)
[2017-08-08] MEDS ORDERED: GLYBURIDE 5 MG TAB PO SCH (08:00)
[2017-08-08 08:20] LABS: CHOL/HDL RATIO 5.9 (3.9-4.7)
--- NOTE | 2017-08-08 08:47 | History and Physical ---
PRIMARY CARE PHYSICIAN: Dr. Hatch CHIEF COMPLAINT: Firing of LifeVest. HISTORY OF PRESENT ILLNESS: This is a 56-year-old man with a history of coronary artery disease, who underwent coronary artery bypass grafting 7 weeks ago at [facility] by Dr. Jason. Has been wearing a LifeVest since then. Now LifeVest started , subsequently shocked him, therefore he called 911. Here, echocardiogram has been ordered. Patient is comfortable, LifeVest only fired once. He denies any chest pain, nausea, vomiting, dizziness, diaphoresis at the time of firing. Denies any symptoms at that time and denies any symptoms now. PAST MEDICAL HISTORY: Coronary artery disease status post right coronary artery bypass grafting 7 weeks ago at [facility], systolic congestive heart failure status post LifeVest placement, [id number] in May 2017, diabetes mellitus type 2, alcoholism, hyponatremia, anemia. PAST SURGICAL HISTORY: Coronary artery bypass grafting 7 weeks ago. ALLERGIES: PER ELECTRONIC MEDICAL RECORD. FAMILY/SOCIAL HISTORY: Patient is . He quit alcohol. No cigarette use. MEDICATIONS: Per electronic medical record. REVIEW OF SYSTEMS: Denies any dizziness, chest pain. PHYSICAL EXAMINATION: VITAL SIGNS: Reviewed. GENERAL APPEARANCE: Tired-appearing man resting in bed. HEENT: Anicteric. Pupils respond to light. No oral lesions. CARDIOVASCULAR: Normal S1 and S2. LUNGS: Moderate breath sounds. ABDOMEN: Soft, nontender, nondistended. EXTREMITIES: No edema or calf tenderness. NEUROLOGICAL: Alert and oriented x3. Moving all extremities. SKIN: Dry. PSYCHIATRIC: Normal affect. MUSCULOSKELETAL: Midline scar healing and healing well. LABS: Reviewed. MEDICATIONS: Reviewed. ASSESSMENT AND PLAN: This is a 56-year-old man. 1. Firing of LifeVest/defibrillator. Echocardiogram ordered. Ejection fraction currently 40% to 45%. Cardiology has been consulted. Currently, blood pressure is stable and heart rate is stable. Will continue him on statin, aspirin. Defer any beta solo use to cardiology. 2. Diabetes mellitus type 2. Hemoglobin A1c, lipid panel. 3. Systolic congestive heart failure. Currently his ejection fraction is 40% to 45%. Patient appears to be euvolemic at this point. His B-type natriuretic peptide is 443. 4. Coronary artery disease with history of bypass. Will continue aspirin and statin. 5. Normocytic anemia, mild. Will continue to follow. 6. Prophylaxis. Will use Lovenox and Pepcid. 7. Disposition. Follow up echocardiogram. Follow up cardiology recommendations. Continue telemetry. Job#: [id number]
[2017-08-08] MEDS ORDERED: METOPROLOL TARTRATE 25 MG TAB PO SCH (09:00)
[2017-08-08] MEDS ORDERED: FUROSEMIDE 40 MG TAB PO SCH (09:00)
[2017-08-08] MEDS: GLYBURIDE 2.5 MG TAB PO SCH (10:00)
[2017-08-08] MEDS: FUROSEMIDE 20 MG TAB PO SCH ×2 (10:00→17:09)
[2017-08-08] MEDS: ASPIRIN 81 MG ENTERIC COATED PO SCH (10:00)
--- NOTE | 2017-08-08 10:53 | Cardiology Report ---
DATE OF STUDY: August 07, 2017 ECHOCARDIOGRAM A 56-year-old male. M-MODE: Dilated left atrium. Left ventricular hypertrophy. Diminished left ventricular contractility. Normal mitral and aortic valves. No pericardial effusion. SECTOR SCAN: Dilated left atrium. Left ventricular hypertrophy. Diminished left ventricular contractility, especially at the apex. Apical mural thrombus cannot be completely excluded. Aortic valve is sclerotic. Mitral and tricuspid valves are normal. There is no pericardial effusion. CARDIAC DOPPLER STUDY WITH COLOR: No significant aortic stenosis. Trace aortic and mitral regurgitation and 1+ tricuspid regurgitation. Pulmonary artery systolic pressure estimated at 31 mmHg. CONCLUSIONS 1. Left ventricular hypertrophy with ejection fraction of approximately 35%. 2. Severe apical hypokinesis or akinesis, cannot exclude apical mural thrombus. 3. Trace mitral and aortic regurgitation with aortic sclerosis. 4. Mild tricuspid regurgitation. RECOMMENDATION: Consider contrast echocardiography. Job#: [id number] MH cc:MD JENNIFER ORTIZ MD
[2017-08-08] MEDS: INSULIN REGULAR, HUMAN 100 UNIT/1 ML 3ML VIAL SQ SCH ×3 (13:23→21:00)
[2017-08-08] MEDS: AMIODARONE HCL 200 MG TAB PO SCH ×2 (13:49→21:39)
[2017-08-08 14:44] VITALS: BP 107/78
[2017-08-08 15:33] VITALS: BP 107/78
[2017-08-08 15:34] VITALS: BP 107/78
[2017-08-08 16:50] LABS: CREATINE KINASE MB 2.2 ng/mL (0-5.0)
--- NOTE | 2017-08-08 18:25 | Consultation ---
DATE OF CONSULTATION: August 07, 2017 CARDIOLOGY CONSULTATION CLINICAL HISTORY: This is a 56-year-old man seen in the emergency room at [facility] because of LifeVest discharge. This patient was seen by me in May and was found to have multivessel coronary artery disease and ischemic cardiomyopathy. Ejection fraction in the range of 20%. He went to the [facility] and had bypass surgery by Dr. Jason. At the time of discharge, he was wearing a LifeVest. He was told that he will need the LifeVest until September at which time the decision will be made whether he will have implantable AICD. His current ejection fraction is approximately 35%. On the evening of admission, the patient had alarm go off on the LifeVest. Instead of pressing 2 buttons to diffuse the alarm, the patient only pressed 1 button. The defibrillator vest had detected the ventricular fibrillation and shocked him even though he had no symptoms. Apparently, this was an over-sensing issue. The Life Vest appears to be partially destroyed. The patient came to the emergency room and was admitted for further monitoring. PAST MEDICAL HISTORY: Is remarkable for coronary artery disease, status post coronary artery bypass surgery as [facility]. In May. There is history of diabetes, hyponatremia, anemia and alcoholism. PAST SURGICAL HISTORY: Bypass surgery. ALLERGIES: PLEASE REFER TO THE RECORD. FAMILY HISTORY: Remarkable for diabetes. PERSONAL / SOCIAL HISTORY: Drinks approximately 64 ounces of beer per day. Denies smoking. Works in construction. REVIEW OF SYSTEMS: Noncontributory. PHYSICAL EXAMINATION: GENERAL: He is alert and coherent. VITALS: Stable. CARDIAC: Jugular veins are not distended. S1 and S2 are regular. There are no appreciable murmurs. LUNGS: Clear. ABDOMEN: Soft. Bowel sounds are present. EXTREMITIES: Show no cyanosis, clubbing or edema. LABORATORY DATA: The white count is 7300, hemoglobin 12.2, platelet count 210,000. INR is 1.1. Liver functions are adequate. BUN 16, creatinine 0.8. Sodium 137. Potassium 3.6. Bicarb 25. IMPRESSION: 1. LifeVest sensing failure detecting ventricular fibrillation even though the signal was most likely artifact. 2. Kiln Charger error with the patient not depressing both buttons to diffuse the alarm. 3. Ischemic and alcoholic cardiomyopathy. Ejection fraction currently in the range of 35%, previously was 20%. 4. Multivessel severe coronary artery disease, status post coronary artery bypass surgery. 5. Recent troponin elevation to 18 suggestive of Non-STEMI. 6. Diabetes. 7. Alcoholism. RECOMMENDATION: New defibrillator vest. EP consultation. Consider AICD implantation. Job#: [id number] GH cc:MP CARRERO MD
[2017-08-08 20:00] VITALS: BP 108/72
[2017-08-08] MEDS ORDERED: ATORVASTATIN 20 MG TAB PO SCH (21:00)
[2017-08-08] MEDS: ATORVASTATIN 40 MG TAB PO SCH (21:39)
[2017-08-09] VITALS: BP 99/61
[2017-08-09 01:39] VITALS: BP 108/72
[2017-08-09 04:00] VITALS: BP 101/64
[2017-08-09] MEDS: INSULIN REGULAR, HUMAN 100 UNIT/1 ML 3ML VIAL SQ SCH ×4 (07:30→21:00)
[2017-08-09] MEDS: GLYBURIDE 2.5 MG TAB PO SCH (07:30)
[2017-08-09] MEDS: AMIODARONE HCL 200 MG TAB PO SCH ×2 (08:39→21:01)
[2017-08-09] MEDS: ASPIRIN 81 MG ENTERIC COATED PO SCH (08:39)
[2017-08-09] MEDS: FUROSEMIDE 20 MG TAB PO SCH ×2 (08:39→17:00)
[2017-08-09 14:19] VITALS: BP 104/61
[2017-08-09 20:35] VITALS: BP 101/66
[2017-08-09] MEDS: ATORVASTATIN 40 MG TAB PO SCH (21:01)
[2017-08-09 22:21] VITALS: BP 101/66
[2017-08-10] VITALS (7 sets, daily range): BP systolic 94–113; BP diastolic 53–79
[2017-08-10 07:23] LABS: BASOPHILS % 0.5 % (0.0-1.0); EOSINOPHILS # (AUTO) 0.4 (0.0-0.4); EOSINOPHILS % 5.8 % (0.0-6.0); HEMATOCRIT 35.1 % (38.2-49.6); HEMOGLOBIN 12.6 g/dL (14.0-18.0); LYMPHOCYTES # (AUTO) 1.9 (1.0-3.2); LYMPHOCYTES % 26.1 % (18.0-39.1); MEAN CORPUSCULAR HEMOGLOBIN 30.9 pg (28-32); MEAN CORPUSCULAR HGB CONC 35.9 g/dL (31-35); MONOCYTES # (AUTO) 0.5 (0.2-0.8); MONOCYTES % 6.8 % (4.4-11.3); NEUTROPHILS # (AUTO) 4.4 (2.1-6.9); NEUTROPHILS % 60.4 % (38.7-80.0); PLATELET COUNT 246 x10e3/uL (140-360); RED BLOOD COUNT 4.08 x10e6/uL (4.3-5.7); RED CELL DISTRIBUTION WIDTH 12.6 % (11.7-14.4)
[2017-08-10] MEDS: INSULIN REGULAR, HUMAN 100 UNIT/1 ML 3ML VIAL SQ SCH ×4 (07:30→20:56)
[2017-08-10] MEDS: GLYBURIDE 2.5 MG TAB PO SCH (07:30)
[2017-08-10 07:35] LABS: ANION GAP 14.5 mmol/L (8-16); BLOOD UREA NITROGEN 17 mg/dL (7-26); BUN/CREATININE RATIO 19 (6-25); CALCIUM 9.8 mg/dL (8.4-10.2); CARBON DIOXIDE 27 mmol/L (22-29); CHLORIDE 100 mmol/L (98-107); CREATININE, SERUM 0.91 mg/dL (0.72-1.25); EST GLOMERULAR FILTRATION RATE > 60 ML/MIN (60-); GLUCOSE 104 mg/dL (74-118); MAGNESIUM 1.5 MG/DL (1.3-2.1); POTASSIUM 3.5 mmol/L (3.5-5.1); SODIUM 138 mmol/L (136-145)
[2017-08-10] MEDS: ASPIRIN 81 MG ENTERIC COATED PO SCH (08:52)
[2017-08-10] MEDS: AMIODARONE HCL 200 MG TAB PO SCH ×2 (08:52→20:56)
[2017-08-10] MEDS: FUROSEMIDE 20 MG TAB PO SCH ×2 (08:52→17:08)
--- NOTE | 2017-08-10 18:55 | Consultation ---
DATE OF CONSULTATION: August 08, 2017 REFERRING PHYSICIAN: Dr. Pavon. REASON FOR CONSULT: Cardiac arrest, shock from LifeVest. HISTORY OF PRESENT ILLNESS: This is a 56-year-old gentleman with history of coronary artery disease and hypertension. He had a myocardial infarction in May 2017, found to have triple-vessel disease, underwent coronary bypass surgery. His ejection fraction has been around 40%. He then was discharged home wearing a LifeVest. Patient has been doing well. He has been taking all his medicines; however, yesterday he was at home when all of the sudden he felt something funny, unable to describe it well and then a shock from the LifeVest. Interrogation from the [employer] demonstrates patient had an episode of ventricular fibrillation successfully treated with shock. Patient is currently in sinus rhythm, hemodynamically stable. Denies chest pain or other symptoms. REVIEW OF SYSTEMS: CONSTITUTIONAL: Negative. CARDIOVASCULAR: Negative. RESPIRATORY: Negative. GASTROINTESTINAL: Negative. GENITOURINARY: Negative. MUSCULOSKELETAL: Negative. EYES: Negative. ENT: Negative. ALLERGY/IMMUNOLOGY: Negative. PSYCHIATRY: Negative. PAST MEDICAL HISTORY: Coronary artery disease. PAST SURGICAL HISTORY: Coronary bypass surgery. SOCIAL HISTORY: No smoking, alcohol, or illicit drugs. FAMILY HISTORY: No premature coronary artery disease. PHYSICAL EXAMINATION: VITAL SIGNS: Blood pressure 120/60, pulse 70, respirations 20, O2 sat 98%. GENERAL: No acute distress. HEENT: Moist mucous membranes. CARDIOVASCULAR: Regular. RESPIRATORY: Clear. ABDOMEN: Soft, nontender. MUSCULOSKELETAL: 2+ pedal pulses. NEUROLOGICAL: No focal deficit. SKIN: No lesions. PSYCHIATRY: Normal thought process. EKG: Sinus rhythm, narrow complex QRS. IMPRESSION 1. Ventricular fibrillation cardiac arrest successfully treated with external shock from LifeVest. 2. History of coronary artery disease, myocardial infarction, and coronary bypass surgery in May 2017. RECOMMENDATIONS: I had discussion with the patient. He had an episode of ventricular fibrillation, which was successfully treated with LifeVest. He meets criteria for secondary prevention cardiac defibrillator. This was explained to the patient in detail, procedure, benefits, and risk. Patient voices understanding and wishes for proceed. We will plan for a single-chamber cardiac defibrillator implant. Thank you for letting us participate in Mr. Shields's healthcare. Job#: [id number] VAS
[2017-08-10] MEDS: ATORVASTATIN 40 MG TAB PO SCH (20:56)
[2017-08-11] VITALS (7 sets, daily range): BP systolic 94–113; BP diastolic 63–75
[2017-08-11] MEDS ORDERED: FENTANYL CITRATE/PF 100MCG/2 ML INJ ONE (06:25)
[2017-08-11] MEDS ORDERED: MIDAZOLAM HCL 2 MG/2 ML VIAL ONE ×2 (06:25→08:07)
[2017-08-11] MEDS ORDERED: SODIUM CHLORIDE 0.9% 500ML 500 ML ONE (06:26)
[2017-08-11] MEDS ORDERED: BACITRACIN 50,000 UNIT VIAL ONE (06:26)
[2017-08-11] MEDS ORDERED: SODIUM CHLORIDE 0.9% 1000ML 2,000 ML ONE (06:26)
[2017-08-11] MEDS ORDERED: LIDOCAINE HCL 2% LOCAL 20 ML VIAL ONE ×2 (06:26→08:08)
[2017-08-11 06:44] LABS: BASOPHILS # (AUTO) 0.1 (0.0-0.1); BASOPHILS % 0.7 % (0.0-1.0); EOSINOPHILS # (AUTO) 0.4 (0.0-0.4); EOSINOPHILS % 5.1 % (0.0-6.0); HEMATOCRIT 35.4 % (38.2-49.6); HEMOGLOBIN 12.4 g/dL (14.0-18.0); LYMPHOCYTES # (AUTO) 2.2 (1.0-3.2); MEAN CORPUSCULAR HEMOGLOBIN 30.2 pg (28-32); MEAN CORPUSCULAR VOLUME 86.3 fL (81-99); MONOCYTES # (AUTO) 0.5 (0.2-0.8); MONOCYTES % 6.7 % (4.4-11.3); NEUTROPHILS # (AUTO) 4.3 (2.1-6.9); NEUTROPHILS % 58.4 % (38.7-80.0); PLATELET COUNT 232 x10e3/uL (140-360); RED CELL DISTRIBUTION WIDTH 12.7 % (11.7-14.4)
[2017-08-11] MEDS ORDERED: CEFAZOLIN SOD 1 GM VIAL ONE ×2 (06:54→06:58)
[2017-08-11] MEDS ORDERED: VANCOMYCIN 1GM/NS 250 ML 250 ML ONE (06:59)
[2017-08-11 07:18] LABS: ANION GAP 11.9 mmol/L (8-16); BLOOD UREA NITROGEN 20 mg/dL (7-26); BUN/CREATININE RATIO 18 (6-25); CALCIUM 9.9 mg/dL (8.4-10.2); CARBON DIOXIDE 30 mmol/L (22-29); CHLORIDE 102 mmol/L (98-107); CREATININE, SERUM 1.11 mg/dL (0.72-1.25); EST GLOMERULAR FILTRATION RATE > 60 ML/MIN (60-); GLUCOSE 102 mg/dL (74-118); MAGNESIUM 1.7 MG/DL (1.3-2.1); POTASSIUM 3.9 mmol/L (3.5-5.1); SODIUM 140 mmol/L (136-145)
[2017-08-11] MEDS: INSULIN REGULAR, HUMAN 100 UNIT/1 ML 3ML VIAL SQ SCH ×4 (07:30→20:34)
[2017-08-11] MEDS: ASPIRIN 81 MG ENTERIC COATED PO SCH (09:00)
[2017-08-11] MEDS: GLYBURIDE 2.5 MG TAB PO SCH (10:21)
[2017-08-11] MEDS: AMIODARONE HCL 200 MG TAB PO SCH ×2 (10:21→21:33)
[2017-08-11] MEDS: FUROSEMIDE 20 MG TAB PO SCH ×2 (10:21→17:36)
[2017-08-11] MEDS: ENOXAPARIN 30 MG/0.3 ML SYR SC SCH ×2 (20:15→21:33)
[2017-08-11] MEDS: ATORVASTATIN 40 MG TAB PO SCH (21:33)
--- NOTE | 2017-08-11 23:32 | Operative Report ---
DATE OF PROCEDURE: August 11, 2017 REFERRING PHYSICIAN: Dr. Pavon PREPROCEDURE DIAGNOSIS: Status post ventricular fibrillation cardiac arrest, successfully treated with external shock from LifeVest. POSTPROCEDURE DIAGNOSIS: Status post ventricular fibrillation cardiac arrest, successfully treated with external shock from LifeVest. ESTIMATED BLOOD LOSS: 5 mL. PROCEDURES PERFORMED 1. Single-chamber cardiac defibrillator. 2. Moderate sedation. Moderate conscious sedation was provided under my direct supervision by a sedation-trained nurse. Sedation approximate time 20 minutes. There were no complications. See sedation form for details. DESCRIPTION OF PROCEDURE: After informed consent was obtained, patient was brought to the electrophysiology laboratory in a fasting, nonsedated state. Area over his chest was prepped and draped in the usual sterile fashion. Moderate sedation and prophylactic antibiotic were given, 1% lidocaine was used as a local anesthetic and a 3-cm skin incision was made in the left subclavicular area. Electrocautery and sharp and blunt dissection were used to reach the muscular fascia and a pocket was created for eventual implantation of the device. Vascular access was obtained x1 in the left axillary vein using the modified Seldinger technique under fluoroscopic guidance. A 9-Bulgarian sheath was placed, the ventricular lead advanced to the RV apex. R-wave 12, pacing 0.6 at 0.5, impedance 441. The lead was secured to fascia using #0 silk. Pocket was irrigated with antibiotic solution using the pulse river rat. Hemostasis was meticulous. Lead was connected to the device and the entire ICD system placed in the pocket. Incision was closed using Vicryl and Dermabond. Patient tolerated the procedure well. Procedure was deemed complete. SUMMARY OF HARDWARE IMPLANTED: 1. The new defibrillator is [employer], model #D150, [id number]. 2. The ventricular lead is [employer], 0292, [id number]. IMPRESSION: Successful single-chamber cardiac defibrillator implant via left axillary vein. PLAN: 1. Routine postop monitoring in telemetry bed. 2. Chest x-ray. 3. Follow up in 2 weeks. Job#: [id number]
[2017-08-12] VITALS (7 sets, daily range): BP systolic 109–119; BP diastolic 61–72
[2017-08-12 06:37] LABS: BASOPHILS # (AUTO) 0.1 (0.0-0.1); BASOPHILS % 0.7 % (0.0-1.0); EOSINOPHILS # (AUTO) 0.4 (0.0-0.4); EOSINOPHILS % 5.2 % (0.0-6.0); HEMATOCRIT 34.8 % (38.2-49.6); HEMOGLOBIN 12.2 g/dL (14.0-18.0); LYMPHOCYTES # (AUTO) 1.7 (1.0-3.2); LYMPHOCYTES % 22.6 % (18.0-39.1); MEAN CORPUSCULAR HEMOGLOBIN 30.4 pg (28-32); MEAN CORPUSCULAR HGB CONC 35.1 g/dL (31-35); MEAN CORPUSCULAR VOLUME 86.8 fL (81-99); MONOCYTES # (AUTO) 0.7 (0.2-0.8); MONOCYTES % 8.7 % (4.4-11.3); NEUTROPHILS # (AUTO) 4.8 (2.1-6.9); NEUTROPHILS % 62.5 % (38.7-80.0); PLATELET COUNT 209 x10e3/uL (140-360); RED BLOOD COUNT 4.01 x10e6/uL (4.3-5.7); RED CELL DISTRIBUTION WIDTH 12.5 % (11.7-14.4)
[2017-08-12 06:49] LABS: ANION GAP 12.9 mmol/L (8-16); BLOOD UREA NITROGEN 21 mg/dL (7-26); BUN/CREATININE RATIO 19 (6-25); CALCIUM 9.8 mg/dL (8.4-10.2); CARBON DIOXIDE 29 mmol/L (22-29); CHLORIDE 101 mmol/L (98-107); CREATININE, SERUM 1.11 mg/dL (0.72-1.25); EST GLOMERULAR FILTRATION RATE > 60 ML/MIN (60-); GLUCOSE 97 mg/dL (74-118); MAGNESIUM 1.7 MG/DL (1.3-2.1); PHOSPHORUS 4.8 MG/DL (2.3-4.7); POTASSIUM 3.9 mmol/L (3.5-5.1); SODIUM 139 mmol/L (136-145)
[2017-08-12] MEDS: GLYBURIDE 2.5 MG TAB PO SCH (07:30)
[2017-08-12] MEDS: INSULIN REGULAR, HUMAN 100 UNIT/1 ML 3ML VIAL SQ SCH ×4 (07:30→20:21)
[2017-08-12] MEDS ORDERED: PANTOPRAZOLE SOD 40 MG TABEC PO SCH ×2 (07:30)
[2017-08-12] MEDS: ASPIRIN 81 MG ENTERIC COATED PO SCH (08:45)
[2017-08-12] MEDS: AMIODARONE HCL 200 MG TAB PO SCH ×2 (08:45→20:20)
[2017-08-12] MEDS: FUROSEMIDE 20 MG TAB PO SCH ×2 (08:45→16:34)
[2017-08-12] MEDS ORDERED: XARELTO20 MG PO (10:26)
[2017-08-12] MEDS ORDERED: AMIODARONE HCL200 MG PO (10:27)
[2017-08-12] MEDS: ENOXAPARIN 30 MG/0.3 ML SYR SC SCH (16:34)
[2017-08-12] MEDS ORDERED: RIVAROXABAN 20 MG TABLET PO SCH (17:00)
[2017-08-12] MEDS: ATORVASTATIN 40 MG TAB PO SCH (20:20)
--- NOTE | 2017-08-13 01:33 | Discharge Summary ---
DATE OF SERVICE: August 12, 2017 DATE OF : 1960 PRIMARY CARE PHYSICIAN: Dr. Hatch PERTINENT HISTORY AND PHYSICAL FINDINGS: A 56-year-old man with the past medical history of coronary artery disease, status post right coronary artery bypass grafting 7 weeks ago at [facility], systolic congestive heart failure, status post LifeVest placement, [id number] OR May 2017, diabetes mellitus, type 2, alcoholism, hyponatremia, anemia, who have been wearing LifeVest since the coronary artery bypass grafting by Dr. Jason. Patient stated that LifeVest shocked him, therefore he called 911. The LifeVest only fired once. He denied any chest pain, nausea, vomiting, diarrhea, dizziness, diaphoresis at the time of firing. Denies any symptoms now. Past surgical history as above. He is . He quit drinking alcohol. No cigarette use. ADMITTING DIAGNOSES 1. Firing of LifeVest/defibrillator. 2. Diabetes mellitus, type 2. 3. Systolic congestive heart failure with ejection fraction 40% to 45%. 4. Coronary artery disease with a history of bypass. 5. Normocytic anemia, mild. DISCHARGE DIAGNOSES 1. Ventricular fibrillation cardiac arrest successfully treated with external shock from LifeVest, now status post single-chamber automatic implantable cardioverter defibrillator placement, August 11, [address] Piedra. 2. Systolic congestive heart failure. 3. History of coronary artery disease, myocardial infarction, coronary artery bypass graft. 4. Type-2 diabetes mellitus. 5. Normocytic anemia. 6. Hyperlipidemia. 7. Hypomagnesemia. CONSULTING PHYSICIANS: Dr. Pavon with cardiology and Dr. Reese. PERTINENT DIAGNOSTICS AND LABS: Today's sodium 139, potassium 3.9, chloride 101, CO2 29, BUN 21, creatinine 1.11. Glucose 97. WBC 7.69, hemoglobin 12.2, hematocrit 34.8, platelets 209,000, neutrophils 62.5. Phosphorous 4.8, magnesium 1.7. Fingerstick blood glucose levels 112, 199. On admission, labs were generally stable, potassium was 3.5, magnesium was 1.5, INR 1.1, PTT 30.8. WBC 7.36, hemoglobin 12.6, hematocrit 35.1, platelets 346,000. Echocardiogram was completed on August 07, which showed estimated ejection fraction of 40% to 45%. On August 07, a 12-lead EKG showed normal sinus rhythm with a heart rate 72. Per Dr. Pavon and nelia Coleman to discharge patient home today. Patient will be sent home on Xarelto 20 mg p.o. daily and amiodarone 200 mg p.o. daily. Also, continue patient's aspirin, Lasix, atorvastatin, and glyburide. REVIEW OF SYSTEMS: Generally unchanged. Patient has no new complaints. Denies chest pain or palpitations. PHYSICAL EXAM: Unchanged from yesterday. Vital signs from today temperature 96.6, heart rate 69, blood pressure 109/67, respirations 18, oxygen saturation 100%. BMI 26.95. DISPOSITION: Home without home health. No DME required. DIET: Continue ADA diet. ACTIVITY: As tolerated. FOLLOWUP: With Dr. Piedra in 8 days according to patient and follow up with PCP in 1 to 2 weeks. Followup with cardiology as directed. Dictated By: Gwyn Tate NP MP CARRERO MD Job#: [id number] CQ
== END 2017-08-12 20:35 | disposition home or self-care (01) | DRG 245 ==
LOC: ER 19:14 → ERHOLD 23:06 → MED/SURG2 08-08 14:21
PROVIDERS: ADMIT Internal Medicine; ATTEND Internal Medicine
PROC: 0JH608Z Insertion of Defibrillator Generator into Chest Subcutaneous Tissue and Fascia, Open Approach (ICD-10-PCS; principal; 2017-08-11)
DX: I49.01 Ventricular fibrillation (principal); I42.6 Alcoholic cardiomyopathy; I50.20 Unspecified systolic (congestive) heart failure; T82.198A Other mechanical complication of other cardiac electronic device, initial encounter; E11.9 Type 2 diabetes mellitus without complications; I25.10 Atherosclerotic heart disease of native coronary artery without angina pectoris; Z95.1 Presence of aortocoronary bypass graft; D64.9 Anemia, unspecified; E78.5 Hyperlipidemia, unspecified; E83.42 Hypomagnesemia; I25.2 Old myocardial infarction; F10.20 Alcohol dependence, uncomplicated
CPT/HCPCS: 33270; 33271; 36005; 36415; 71045; 77001; 77002; 80048; 80053; 80061; 81001; 82550; 82553; 82948; 83036; 83735; 83880; 84100; 84443; 84484; 85025; 85610; 85730; 93005; 93306; 99285; C1882; J0690; J1650; J2001; J2250; J3370; J7030; J7040

== ENCOUNTER → 2018-04-20 | Outpatient (CLI) | payer OTHER ==
[~2018-04-20] MED LIST changes: +AMIODARONE HCL200 MG PO; +XARELTO20 MG PO
--- NOTE | 2018-04-20 19:21 | Diagnostic Imaging Report ---
EXAM: CHEST 2 VIEWS, AP 1 view INDICATION: Intercostal pain. COMPARISON: AP view of the chest dated 08/07/2017 FINDINGS: LINES/TUBES: Median sternotomy wires and mediastinal clips again observed. Left-sided AICD. LUNGS: No consolidations or edema. PLEURA: No effusions or pneumothorax. HEART AND MEDIASTINUM: Normal size and contour. BONES AND SOFT TISSUES: No acute findings. IMPRESSION: No acute thoracic abnormality. Interval placement of a left-sided AICD. Signed by: Dr. Amrita Yuan M.D. on 04/20/2018 7:17 PM
== END ==
LOC: RAD 17:06
PROVIDERS: ATTEND Community Health Worker
DX: R07.82 Intercostal pain (principal)
CPT/HCPCS: 71046

== ENCOUNTER → 2018-05-20 | Outpatient (CLI) | payer OTHER ==
--- NOTE | 2018-05-20 13:11 | Diagnostic Imaging Report ---
Limited left chest wall ultrasound. History: Left intercostal pain. Technique/findings: Limited left chest wall ultrasound was performed in the area of clinical concern overlying the left chest. No sonographic evidence of soft tissue abnormality. No evidence of collection or mass. Limited comparison images of the right chest wall is unremarkable. IMPRESSION: Limited sonographic evaluation of the left chest wall demonstrates no evidence of fluid collection or mass in the area of clinical concern. If there is clinical concern for rib pathology, rib radiographs are suggested for further evaluation. Signed by: Dr. Nohelia Maldonado MD on 05/20/2018 1:08 PM
== END ==
LOC: US 11:34
PROVIDERS: ATTEND Community Health Worker
DX: R07.82 Intercostal pain (principal)
CPT/HCPCS: 76604

== ENCOUNTER 2021-06-06 15:37 | Emergency (ER) | payer MEDICARE, OTHER ==
[~2021-06-06] VITALS: Ht 167.6 cm; Wt 88.2 kg
[2021-06-06] MEDS ORDERED: METFORMIN HCL500 MG PO (16:36)
[2021-06-06] MEDS ORDERED: NEURONTIN100 MG PO (16:36)
== END 2021-06-06 17:27 | disposition home or self-care (01) ==
LOC: FSED 15:40
DX: R07.89 Other chest pain (principal); E11.40 Type 2 diabetes mellitus with diabetic neuropathy, unspecified; I10 Essential (primary) hypertension; I50.9 Heart failure, unspecified; E78.5 Hyperlipidemia, unspecified; I25.2 Old myocardial infarction; Z95.1 Presence of aortocoronary bypass graft; Z95.810 Presence of automatic (implantable) cardiac defibrillator
CPT/HCPCS: 71046; 99283

== ENCOUNTER 2021-06-08 17:11 | Inpatient (IN) | payer MEDICARE ==
[~2021-06-08] VITALS: Ht 165.1 cm; Wt 88.9 kg
[~2021-06-08 17:11] MED LIST changes: +NEURONTIN100 MG PO
[2021-06-08] MEDS ORDERED: HYDROCODONE/APAP 5MG-325MG TAB PO PRN (17:30)
[2021-06-08] MEDS ORDERED: PIPERACILLIN/TAZOBACTAM 3.375 GM in SODIUM CHLORIDE 0.9% 50ML 50 ML IV SCH (17:30)
[2021-06-08 17:39] LABS: BASOPHILS % 0.4 % (0.0-1.0); EOSINOPHILS # (AUTO) 0.3 (0.0-0.4); EOSINOPHILS % 2.6 % (0.0-6.0); HEMATOCRIT 47.7 % (38.2-49.6); HEMOGLOBIN 16.3 g/dL (14.0-18.0); LYMPHOCYTES # (AUTO) 1.8 (1.0-3.2); LYMPHOCYTES % 18.7 % (18.0-39.1); MEAN CORPUSCULAR HGB CONC 34.2 g/dL (31-35); MEAN CORPUSCULAR VOLUME 90.7 fL (81-99); MONOCYTES # (AUTO) 0.7 (0.2-0.8); MONOCYTES % 7.7 % (4.4-11.3); NEUTROPHILS # (AUTO) 6.7 (2.1-6.9); NEUTROPHILS % 70.4 % (38.7-80.0); PLATELET COUNT 270 x10e3/uL (140-360); RED BLOOD COUNT 5.26 x10e6/uL (4.3-5.7); RED CELL DISTRIBUTION WIDTH 13.1 % (11.7-14.4)
[2021-06-08 17:53] LABS: ALBUMIN/GLOBULIN RATIO 0.9 (0.8-2.0); ANION GAP 15.4 mmol/L (8-16); CALCIUM 10.2 mg/dL (8.4-10.2); CREATININE, SERUM 1.36 mg/dL (0.72-1.25); POTASSIUM 4.4 mmol/L (3.5-5.1)
[2021-06-08] MEDS ORDERED: SODIUM CHLORIDE FLUSH 10 ML SYR INJ PRN (19:15)
[2021-06-08] MEDS ORDERED: ONDANSETRON HCL INJ 2MG/ML 2ML 2 MG/ML VIAL IV PRN (19:15)
[2021-06-08] MEDS: CEFEPIME 1 GM in SODIUM CHLORIDE 0.9% 50ML 50 ML IV SCH (19:22)
[2021-06-08] MEDS ORDERED: Vancomycin IV 1 GM VIAL ONE (19:28)
[2021-06-08] MEDS ORDERED: SODIUM CHLORIDE 0.9% 250ML 250 ML ONE (19:28)
[2021-06-08] MEDS: Vancomycin IV 1 GM in SODIUM CHLORIDE 0.9% 250ML 250 ML IV SCH (20:10)
[2021-06-08 22:00] VITALS: BP 128/91
[2021-06-08] MEDS ORDERED: CEFEPIME 1 GM in SODIUM CHLORIDE 0.9% 50ML 50 ML IV SCH (22:00)
[2021-06-08] MEDS ORDERED: DEXTROSE 50% SYRINGE 50 ML IV PRN (22:00)
[2021-06-08 22:26] VITALS: BP 128/91
[2021-06-08 23:54] VITALS: BP 121/64
[2021-06-09] VITALS (8 sets, daily range): BP systolic 97–125; BP diastolic 49–80
[2021-06-09] MEDS: HYDROCODONE/APAP 5MG-325MG TAB PO PRN ×2 (06:39→19:37)
[2021-06-09 07:00] LABS: BASOPHILS % 0.5 % (0.0-1.0); EOSINOPHILS # (AUTO) 0.2 (0.0-0.4); EOSINOPHILS % 2.6 % (0.0-6.0); HEMATOCRIT 41.9 % (38.2-49.6); HEMOGLOBIN 14.4 g/dL (14.0-18.0); LYMPHOCYTES # (AUTO) 1.7 (1.0-3.2); LYMPHOCYTES % 21.4 % (18.0-39.1); MEAN CORPUSCULAR HEMOGLOBIN 30.6 pg (28-32); MEAN CORPUSCULAR HGB CONC 34.4 g/dL (31-35); MEAN CORPUSCULAR VOLUME 89.1 fL (81-99); MONOCYTES # (AUTO) 0.7 (0.2-0.8); MONOCYTES % 8.9 % (4.4-11.3); NEUTROPHILS # (AUTO) 5.3 (2.1-6.9); NEUTROPHILS % 66.1 % (38.7-80.0); PLATELET COUNT 234 x10e3/uL (140-360); RED CELL DISTRIBUTION WIDTH 12.7 % (11.7-14.4)
[2021-06-09 07:30] LABS: CHOL/HDL RATIO 6.8 (3.9-4.7)
[2021-06-09] MEDS: INSULIN REGULAR, HUMAN 100 UNIT/1 ML SQ SCH ×4 (07:30→21:00)
[2021-06-09 07:50] LABS: THYROID STIMULATING HORMONE 2.914 uIU/mL (0.350-4.940)
[2021-06-09] MEDS: FUROSEMIDE 40 MG TAB PO SCH ×2 (08:17→16:35)
[2021-06-09] MEDS: METOPROLOL TARTRATE 25 MG TAB PO SCH ×2 (08:17→16:35)
[2021-06-09] MEDS: GABAPENTIN 100 MG CAP PO SCH ×2 (08:17→16:35)
[2021-06-09] MEDS: FAMOTIDINE 20 MG TAB PO SCH (08:17)
[2021-06-09] MEDS: ASPIRIN 81 MG ENTERIC COATED PO SCH (08:17)
[2021-06-09] MEDS: ENOXAPARIN 30 MG/0.3 ML SYR SC SCH ×2 (08:17→21:08)
[2021-06-09] MEDS: AMIODARONE HCL 200 MG TAB PO SCH (08:17)
[2021-06-09 08:36] LABS: ANION GAP 13.8 mmol/L (8-16); CALCIUM 9.4 mg/dL (8.4-10.2); CREATININE, SERUM 1.05 mg/dL (0.72-1.25); POTASSIUM 4.8 mmol/L (3.5-5.1)
[2021-06-09] MEDS: Vancomycin IV 1 GM in SODIUM CHLORIDE 0.9% 250ML 250 ML IV SCH ×2 (08:56→21:08)
[2021-06-09] MEDS: CEFEPIME 1 GM in SODIUM CHLORIDE 0.9% 50ML 50 ML IV SCH ×2 (08:56→21:08)
[2021-06-09] MEDS ORDERED: GLYBURIDE 5 MG TAB PO SCH (09:00)
[2021-06-09] MEDS ORDERED: SODIUM CHLORIDE 0.9% 250ML 0 ML ONE (09:08)
[2021-06-09] MEDS: ATORVASTATIN 20 MG TAB PO SCH (21:08)
[2021-06-10] VITALS (8 sets, daily range): BP systolic 98–136; BP diastolic 75–83
[2021-06-10 06:43] LABS: BASOPHILS # (AUTO) 0.1 (0.0-0.1); BASOPHILS % 0.5 % (0.0-1.0); EOSINOPHILS # (AUTO) 0.3 (0.0-0.4); EOSINOPHILS % 3.3 % (0.0-6.0); HEMATOCRIT 42.7 % (38.2-49.6); HEMOGLOBIN 14.9 g/dL (14.0-18.0); LYMPHOCYTES # (AUTO) 1.9 (1.0-3.2); LYMPHOCYTES % 20.6 % (18.0-39.1); MEAN CORPUSCULAR HGB CONC 34.9 g/dL (31-35); MEAN CORPUSCULAR VOLUME 88.8 fL (81-99); MONOCYTES # (AUTO) 0.8 (0.2-0.8); MONOCYTES % 9.1 % (4.4-11.3); PLATELET COUNT 250 x10e3/uL (140-360); RED BLOOD COUNT 4.81 x10e6/uL (4.3-5.7); RED CELL DISTRIBUTION WIDTH 12.9 % (11.7-14.4)
[2021-06-10 07:04] LABS: ALBUMIN 3.5 g/dL (3.5-5.0); ALBUMIN/GLOBULIN RATIO 0.9 (0.8-2.0); ANION GAP 16.4 mmol/L (8-16); CALCIUM 9.7 mg/dL (8.4-10.2); CREATININE, SERUM 1.36 mg/dL (0.72-1.25); MAGNESIUM 1.6 MG/DL (1.3-2.1); PHOSPHORUS 4.1 MG/DL (2.3-4.7); POTASSIUM 4.4 mmol/L (3.5-5.1)
[2021-06-10] MEDS: INSULIN REGULAR, HUMAN 100 UNIT/1 ML SQ SCH ×4 (08:30→21:45)
[2021-06-10] MEDS: Vancomycin IV 1 GM in SODIUM CHLORIDE 0.9% 250ML 250 ML IV SCH (08:30)
[2021-06-10] MEDS: ASPIRIN 81 MG ENTERIC COATED PO SCH (10:21)
[2021-06-10] MEDS: CEFEPIME 1 GM in SODIUM CHLORIDE 0.9% 50ML 50 ML IV SCH ×2 (10:21→19:55)
[2021-06-10] MEDS: FUROSEMIDE 40 MG TAB PO SCH ×2 (10:21→17:51)
[2021-06-10] MEDS: GABAPENTIN 100 MG CAP PO SCH ×2 (10:21→17:49)
[2021-06-10] MEDS: AMIODARONE HCL 200 MG TAB PO SCH (10:21)
[2021-06-10] MEDS: FAMOTIDINE 20 MG TAB PO SCH (10:22)
[2021-06-10] MEDS: ENOXAPARIN 30 MG/0.3 ML SYR SC SCH ×2 (10:23→21:45)
[2021-06-10] MEDS: GLYBURIDE 2.5 MG TAB PO SCH (10:34)
[2021-06-10] MEDS: METOPROLOL TARTRATE 25 MG TAB PO SCH ×2 (10:35→17:52)
[2021-06-10] MEDS: HYDROCODONE/APAP 5MG-325MG TAB PO PRN (19:55)
[2021-06-10] MEDS ORDERED: SODIUM CHLORIDE 0.9% 250ML 250 ML ONE (20:11)
[2021-06-10] MEDS ORDERED: Vancomycin IV 750 MG in SODIUM CHLORIDE 0.9% 100 ML 150 ML IV SCH (21:00)
[2021-06-10] MEDS: ATORVASTATIN 20 MG TAB PO SCH (21:45)
[2021-06-11] VITALS (8 sets, daily range): BP systolic 117–130; BP diastolic 75–89
[2021-06-11 06:35] LABS: ALBUMIN 3.5 g/dL (3.5-5.0); ALBUMIN/GLOBULIN RATIO 0.8 (0.8-2.0); ANION GAP 12.6 mmol/L (8-16); CALCIUM 9.9 mg/dL (8.4-10.2); CREATININE, SERUM 1.38 mg/dL (0.72-1.25); POTASSIUM 3.6 mmol/L (3.5-5.1)
[2021-06-11 07:15] LABS: BASOPHILS # (AUTO) 0.1 (0.0-0.1); BASOPHILS % 0.6 % (0.0-1.0); EOSINOPHILS # (AUTO) 0.4 (0.0-0.4); EOSINOPHILS % 4.2 % (0.0-6.0); HEMATOCRIT 42.7 % (38.2-49.6); HEMOGLOBIN 14.9 g/dL (14.0-18.0); LYMPHOCYTES # (AUTO) 2.5 (1.0-3.2); LYMPHOCYTES % 26.6 % (18.0-39.1); MEAN CORPUSCULAR HEMOGLOBIN 31.1 pg (28-32); MEAN CORPUSCULAR HGB CONC 34.9 g/dL (31-35); MEAN CORPUSCULAR VOLUME 89.1 fL (81-99); MONOCYTES # (AUTO) 0.9 (0.2-0.8); MONOCYTES % 10.1 % (4.4-11.3); NEUTROPHILS # (AUTO) 5.4 (2.1-6.9); NEUTROPHILS % 58.2 % (38.7-80.0); PLATELET COUNT 251 x10e3/uL (140-360); RED BLOOD COUNT 4.79 x10e6/uL (4.3-5.7); RED CELL DISTRIBUTION WIDTH 13.1 % (11.7-14.4)
[2021-06-11] MEDS: INSULIN REGULAR, HUMAN 100 UNIT/1 ML SQ SCH ×4 (07:30→21:00)
[2021-06-11] MEDS: METOPROLOL TARTRATE 25 MG TAB PO SCH ×2 (09:00→16:29)
[2021-06-11] MEDS: GABAPENTIN 100 MG CAP PO SCH ×2 (09:00→16:29)
[2021-06-11] MEDS: FUROSEMIDE 40 MG TAB PO SCH ×2 (09:00→16:28)
[2021-06-11] MEDS: CEFEPIME 1 GM in SODIUM CHLORIDE 0.9% 50ML 50 ML IV SCH ×2 (09:33→21:00)
[2021-06-11] MEDS: ENOXAPARIN 30 MG/0.3 ML SYR SC SCH ×2 (13:50→21:05)
[2021-06-11] MEDS: GLYBURIDE 2.5 MG TAB PO SCH (13:50)
[2021-06-11] MEDS: ASPIRIN 81 MG ENTERIC COATED PO SCH (13:50)
[2021-06-11] MEDS: FAMOTIDINE 20 MG TAB PO SCH (13:50)
[2021-06-11] MEDS: AMIODARONE HCL 200 MG TAB PO SCH (13:50)
[2021-06-11] MEDS: HYDROCODONE/APAP 5MG-325MG TAB PO PRN (17:37)
[2021-06-11] MEDS: ATORVASTATIN 20 MG TAB PO SCH (21:05)
[2021-06-12] VITALS (7 sets, daily range): BP systolic 110–129; BP diastolic 68–87
[2021-06-12] MEDS: INSULIN REGULAR, HUMAN 100 UNIT/1 ML SQ SCH ×4 (07:28→20:29)
[2021-06-12] MEDS: CEFEPIME 1 GM in SODIUM CHLORIDE 0.9% 50ML 50 ML IV SCH ×2 (08:36→20:29)
[2021-06-12] MEDS: FUROSEMIDE 40 MG TAB PO SCH ×2 (08:36→17:50)
[2021-06-12] MEDS: GABAPENTIN 100 MG CAP PO SCH ×2 (08:36→17:50)
[2021-06-12] MEDS: GLYBURIDE 2.5 MG TAB PO SCH (08:36)
[2021-06-12] MEDS: ASPIRIN 81 MG ENTERIC COATED PO SCH (08:36)
[2021-06-12] MEDS: AMIODARONE HCL 200 MG TAB PO SCH (08:36)
[2021-06-12] MEDS: METOPROLOL TARTRATE 25 MG TAB PO SCH ×2 (08:36→17:51)
[2021-06-12] MEDS: ENOXAPARIN 30 MG/0.3 ML SYR SC SCH ×2 (08:36→20:29)
[2021-06-12] MEDS: FAMOTIDINE 20 MG TAB PO SCH (08:36)
[2021-06-12] MEDS ORDERED: ONDANSETRON HCL 4 MG ORAL DISINTEGRATING TAB PO PRN (11:00)
[2021-06-12] MEDS: HYDROCODONE/APAP 5MG-325MG TAB PO PRN (17:50)
[2021-06-12] MEDS: ATORVASTATIN 20 MG TAB PO SCH (20:29)
[2021-06-12] MEDS ORDERED: Vancomycin IV 500 MG in SODIUM CHLORIDE 0.9% 100 ML IV STA (21:00)
[2021-06-13] VITALS (8 sets, daily range): BP systolic 116–127; BP diastolic 62–81
[2021-06-13 06:12] LABS: BASOPHILS # (AUTO) 0.1 (0.0-0.1); BASOPHILS % 0.7 % (0.0-1.0); EOSINOPHILS # (AUTO) 0.4 (0.0-0.4); EOSINOPHILS % 5.3 % (0.0-6.0); HEMATOCRIT 41.8 % (38.2-49.6); HEMOGLOBIN 14.9 g/dL (14.0-18.0); LYMPHOCYTES # (AUTO) 1.9 (1.0-3.2); LYMPHOCYTES % 23.1 % (18.0-39.1); MEAN CORPUSCULAR HEMOGLOBIN 30.7 pg (28-32); MEAN CORPUSCULAR HGB CONC 35.6 g/dL (31-35); MEAN CORPUSCULAR VOLUME 86.2 fL (81-99); MONOCYTES # (AUTO) 0.9 (0.2-0.8); MONOCYTES % 10.6 % (4.4-11.3); NEUTROPHILS # (AUTO) 4.9 (2.1-6.9); NEUTROPHILS % 60.2 % (38.7-80.0); PLATELET COUNT 243 x10e3/uL (140-360); RED BLOOD COUNT 4.85 x10e6/uL (4.3-5.7); RED CELL DISTRIBUTION WIDTH 12.5 % (11.7-14.4)
[2021-06-13 06:32] LABS: ANION GAP 17.9 mmol/L (8-16); CALCIUM 9.4 mg/dL (8.4-10.2); CREATININE, SERUM 1.31 mg/dL (0.72-1.25); POTASSIUM 3.9 mmol/L (3.5-5.1)
[2021-06-13] MEDS: INSULIN REGULAR, HUMAN 100 UNIT/1 ML SQ SCH ×4 (07:30→21:00)
[2021-06-13] MEDS: FUROSEMIDE 40 MG TAB PO SCH ×2 (08:41→18:33)
[2021-06-13] MEDS: GLYBURIDE 2.5 MG TAB PO SCH (08:41)
[2021-06-13] MEDS: AMIODARONE HCL 200 MG TAB PO SCH (08:41)
[2021-06-13] MEDS: ASPIRIN 81 MG ENTERIC COATED PO SCH (08:42)
[2021-06-13] MEDS: FAMOTIDINE 20 MG TAB PO SCH (08:42)
[2021-06-13] MEDS: ENOXAPARIN 30 MG/0.3 ML SYR SC SCH ×2 (08:42→20:10)
[2021-06-13] MEDS: GABAPENTIN 100 MG CAP PO SCH ×2 (08:42→18:34)
[2021-06-13] MEDS: CEFEPIME 1 GM in SODIUM CHLORIDE 0.9% 50ML 50 ML IV SCH ×2 (08:42→20:09)
[2021-06-13] MEDS: METOPROLOL TARTRATE 25 MG TAB PO SCH ×2 (09:00→18:33)
[2021-06-13] MEDS: ATORVASTATIN 40 MG TAB PO SCH (20:10)
[2021-06-13] MEDS: Vancomycin IV 500 MG in SODIUM CHLORIDE 0.9% 100 ML IV SCH (21:34)
[2021-06-14] VITALS (8 sets, daily range): BP systolic 104–128; BP diastolic 65–79
[2021-06-14] MEDS: HYDROCODONE/APAP 5MG-325MG TAB PO PRN ×2 (01:38→23:34)
[2021-06-14 05:01] LABS: BASOPHILS # (AUTO) 0.1 (0.0-0.1); BASOPHILS % 0.7 % (0.0-1.0); EOSINOPHILS # (AUTO) 0.6 (0.0-0.4); HEMATOCRIT 41.8 % (38.2-49.6); HEMOGLOBIN 14.7 g/dL (14.0-18.0); LYMPHOCYTES # (AUTO) 1.9 (1.0-3.2); LYMPHOCYTES % 20.9 % (18.0-39.1); MEAN CORPUSCULAR HEMOGLOBIN 30.4 pg (28-32); MEAN CORPUSCULAR HGB CONC 35.2 g/dL (31-35); MEAN CORPUSCULAR VOLUME 86.5 fL (81-99); MONOCYTES # (AUTO) 0.9 (0.2-0.8); MONOCYTES % 9.4 % (4.4-11.3); NEUTROPHILS # (AUTO) 5.8 (2.1-6.9); NEUTROPHILS % 62.7 % (38.7-80.0); PLATELET COUNT 283 x10e3/uL (140-360); RED BLOOD COUNT 4.83 x10e6/uL (4.3-5.7); RED CELL DISTRIBUTION WIDTH 12.5 % (11.7-14.4)
[2021-06-14 05:28] LABS: ANION GAP 16.1 mmol/L (8-16); CALCIUM 9.9 mg/dL (8.4-10.2); CREATININE, SERUM 1.62 mg/dL (0.72-1.25); MAGNESIUM 2.1 MG/DL (1.3-2.1); PHOSPHORUS 3.7 MG/DL (2.3-4.7); POTASSIUM 4.1 mmol/L (3.5-5.1)
[2021-06-14] MEDS: INSULIN REGULAR, HUMAN 100 UNIT/1 ML SQ SCH ×4 (07:30→20:17)
[2021-06-14] MEDS: CEFEPIME 1 GM in SODIUM CHLORIDE 0.9% 50ML 50 ML IV SCH ×2 (08:52→20:00)
[2021-06-14] MEDS: FUROSEMIDE 40 MG TAB PO SCH ×2 (08:52→16:44)
[2021-06-14] MEDS: AMIODARONE HCL 200 MG TAB PO SCH (08:52)
[2021-06-14] MEDS: ASPIRIN 81 MG ENTERIC COATED PO SCH (08:52)
[2021-06-14] MEDS: METOPROLOL TARTRATE 25 MG TAB PO SCH ×2 (08:52→16:45)
[2021-06-14] MEDS: GABAPENTIN 100 MG CAP PO SCH ×2 (08:52→16:45)
[2021-06-14] MEDS: GLYBURIDE 2.5 MG TAB PO SCH (08:52)
[2021-06-14] MEDS: ENOXAPARIN 30 MG/0.3 ML SYR SC SCH ×2 (08:53→20:00)
[2021-06-14] MEDS: FAMOTIDINE 20 MG TAB PO SCH (08:53)
[2021-06-14] MEDS: Vancomycin IV 500 MG in SODIUM CHLORIDE 0.9% 100 ML IV SCH ×2 (09:54→21:23)
[2021-06-14] MEDS: ATORVASTATIN 40 MG TAB PO SCH (20:00)
[2021-06-15] VITALS (17 sets, daily range): BP systolic 103–125; BP diastolic 62–79
[2021-06-15] MEDS: INSULIN REGULAR, HUMAN 100 UNIT/1 ML SQ SCH ×4 (07:19→20:45)
[2021-06-15] MEDS: CEFEPIME 1 GM in SODIUM CHLORIDE 0.9% 50ML 50 ML IV SCH ×2 (08:25→20:45)
[2021-06-15] MEDS: ENOXAPARIN 30 MG/0.3 ML SYR SC SCH ×2 (09:00→20:45)
[2021-06-15] MEDS: FAMOTIDINE 20 MG TAB PO SCH (09:00)
[2021-06-15] MEDS: GLYBURIDE 2.5 MG TAB PO SCH (09:00)
[2021-06-15] MEDS: FUROSEMIDE 40 MG TAB PO SCH ×2 (09:00→17:09)
[2021-06-15] MEDS: GABAPENTIN 100 MG CAP PO SCH ×2 (09:00→17:09)
[2021-06-15] MEDS: ASPIRIN 81 MG ENTERIC COATED PO SCH (09:00)
[2021-06-15] MEDS: AMIODARONE HCL 200 MG TAB PO SCH (09:31)
[2021-06-15] MEDS: METOPROLOL TARTRATE 25 MG TAB PO SCH ×2 (09:31→17:00)
[2021-06-15] MEDS: Vancomycin IV 500 MG in SODIUM CHLORIDE 0.9% 100 ML IV SCH ×2 (10:08→20:45)
[2021-06-15] MEDS ORDERED: SODIUM CHLORIDE 0.9% 500ML 500 ML ONE (12:40)
[2021-06-15] MEDS ORDERED: HEPARIN SOD/SOD CHLORIDE 2,000 ML ONE (12:40)
[2021-06-15] MEDS ORDERED: IOPAMIDOL 300MG/ML 100 ML INFUS..BTL IV ONE (12:40)
[2021-06-15] MEDS ORDERED: LIDOCAINE HCL 2% LOCAL 20 ML VIAL ONE (12:40)
[2021-06-15] MEDS ORDERED: MIDAZOLAM HCL 2 MG/2 ML VIAL ONE ×2 (12:40→13:49)
[2021-06-15] MEDS ORDERED: FENTANYL CITRATE/PF 100MCG/2 ML INJ ONE (12:40)
[2021-06-15] MEDS ORDERED: VERAPAMIL HCL 2.5 MG/ML 2 ML VIAL ONE ×3 (12:41→13:38)
[2021-06-15] MEDS ORDERED: SODIUM CHLORIDE 0.9% 1000ML 0 ML ONE (13:31)
[2021-06-15] MEDS: ATORVASTATIN 40 MG TAB PO SCH (20:45)
[2021-06-16 00:05] VITALS: BP 122/75
[2021-06-16] MEDS ORDERED: HYDROCODONE/APAP 5MG-325MG TAB PO PRN (00:15)
[2021-06-16 06:40] VITALS: BP 116/71
[2021-06-16] MEDS: INSULIN REGULAR, HUMAN 100 UNIT/1 ML SQ SCH ×3 (07:30→16:30)
[2021-06-16 08:00] VITALS: BP 132/76
[2021-06-16] MEDS: CEFEPIME 1 GM in SODIUM CHLORIDE 0.9% 50ML 50 ML IV SCH (08:00)
[2021-06-16] MEDS: FUROSEMIDE 40 MG TAB PO SCH ×2 (09:00→17:00)
[2021-06-16] MEDS: Vancomycin IV 500 MG in SODIUM CHLORIDE 0.9% 100 ML IV SCH (09:00)
[2021-06-16] MEDS: ASPIRIN 81 MG ENTERIC COATED PO SCH (09:00)
[2021-06-16] MEDS: FAMOTIDINE 20 MG TAB PO SCH (09:00)
[2021-06-16] MEDS: METOPROLOL TARTRATE 25 MG TAB PO SCH ×2 (09:00→17:00)
[2021-06-16] MEDS: GLYBURIDE 2.5 MG TAB PO SCH (09:00)
[2021-06-16] MEDS: GABAPENTIN 100 MG CAP PO SCH ×2 (09:00→17:00)
[2021-06-16] MEDS: AMIODARONE HCL 200 MG TAB PO SCH (09:00)
[2021-06-16 12:00] VITALS: BP 103/64
[2021-06-16 17:32] VITALS: BP 119/68
[2021-06-16] MEDS ORDERED: DOXYCYCLINE HY100 MG PO (19:46)
[2021-06-16] MEDS ORDERED: BACTRIM DS TAB1 EACH PO (19:46)
[2021-06-16 20:35] VITALS: BP 119/68
== END 2021-06-16 21:00 | disposition home or self-care (01) | DRG 299 ==
LOC: ER 17:24 → ERHOLD 19:36 → MED/SURG3 22:15 → IMCU 06-09 19:55
PROVIDERS: ADMIT Internal Medicine; ATTEND Internal Medicine
PROC: 8E0ZXY6 Isolation (ICD-10-PCS; 2021-06-08)
PROC: B41D1ZZ Fluoroscopy of Aorta and Bilateral Lower Extremity Arteries using Low Osmolar Contrast (ICD-10-PCS; principal; 2021-06-15)
DX: E11.52 Type 2 diabetes mellitus with diabetic peripheral angiopathy with gangrene (principal); U07.1 COVID-19; I96 Gangrene, not elsewhere classified; L03.115 Cellulitis of right lower limb; I42.6 Alcoholic cardiomyopathy; I50.22 Chronic systolic (congestive) heart failure; E11.628 Type 2 diabetes mellitus with other skin complications; E66.9 Obesity, unspecified; Z68.32 Body mass index [BMI] 32.0-32.9, adult; I25.10 Atherosclerotic heart disease of native coronary artery without angina pectoris; Z79.899 Other long term (current) drug therapy; E11.621 Type 2 diabetes mellitus with foot ulcer; L97.514 Non-pressure chronic ulcer of other part of right foot with necrosis of bone; Z95.0 Presence of cardiac pacemaker; E11.65 Type 2 diabetes mellitus with hyperglycemia; I11.0 Hypertensive heart disease with heart failure; Z95.1 Presence of aortocoronary bypass graft; Z91.14 Patient's other noncompliance with medication regimen; E11.42 Type 2 diabetes mellitus with diabetic polyneuropathy; Z86.74 Personal history of sudden cardiac arrest; I25.2 Old myocardial infarction; E78.5 Hyperlipidemia, unspecified
CPT/HCPCS: 36415; 71045; 75625; 75710; 80048; 80053; 80061; 80202; 82948; 83036; 83605; 83735; 84100; 84443; 85025; 87040; 87071; 87205; 93925; 94799; 96372; 99284; C1725; C1769; C1887; C1894; J0692; J1650; J1817; J2001; J2250; J3010; J3370; J7030; J7040; J7050; Q9967; U0002

== ENCOUNTER 2021-06-28 10:53 | Inpatient (IN) | payer MEDICARE ==
[~2021-06-28] VITALS: Ht 165.1 cm; Wt 88.9 kg
[~2021-06-28 10:53] MED LIST changes: +BACTRIM DS TAB1 EACH PO; +DOXYCYCLINE HY100 MG PO
[2021-06-28] MEDS ORDERED: ONDANSETRON HCL INJ 2MG/ML 2ML 2 MG/ML VIAL IV PRN (11:15)
[2021-06-28] MEDS ORDERED: Morphine 4mg Syringe 4 MG/ML INJ IV PRN (11:15)
[2021-06-28 11:20] LABS: BASOPHILS # (AUTO) 0.1 (0.0-0.1); BASOPHILS % 0.8 % (0.0-1.0); EOSINOPHILS # (AUTO) 0.4 (0.0-0.4); EOSINOPHILS % 4.2 % (0.0-6.0); HEMATOCRIT 40.8 % (38.2-49.6); HEMOGLOBIN 13.8 g/dL (14.0-18.0); LYMPHOCYTES # (AUTO) 1.7 (1.0-3.2); LYMPHOCYTES % 16.4 % (18.0-39.1); MEAN CORPUSCULAR HEMOGLOBIN 30.5 pg (28-32); MEAN CORPUSCULAR HGB CONC 33.8 g/dL (31-35); MEAN CORPUSCULAR VOLUME 90.3 fL (81-99); MONOCYTES # (AUTO) 0.7 (0.2-0.8); MONOCYTES % 6.4 % (4.4-11.3); NEUTROPHILS # (AUTO) 7.4 (2.1-6.9); NEUTROPHILS % 71.9 % (38.7-80.0); PLATELET COUNT 312 x10e3/uL (140-360); RED BLOOD COUNT 4.52 x10e6/uL (4.3-5.7); RED CELL DISTRIBUTION WIDTH 12.6 % (11.7-14.4)
[2021-06-28] MEDS: SODIUM CHLORIDE 0.9% 1000ML 1,000 ML IV SCH ×2 (11:24→14:20)
[2021-06-28] MEDS: Vancomycin IV 1 GM in SODIUM CHLORIDE 0.9% 250ML 250 ML IV SCH ×2 (11:34→20:26)
[2021-06-28 11:42] LABS: ALBUMIN/GLOBULIN RATIO 0.9 (0.8-2.0); ANION GAP 15.4 mmol/L (8-16); CALCIUM 9.8 mg/dL (8.4-10.2); CREATININE, SERUM 1.87 mg/dL (0.72-1.25); POTASSIUM 4.4 mmol/L (3.5-5.1)
[2021-06-28] MEDS: PIPERACILLIN/TAZOBACTAM 3.375 GM in SODIUM CHLORIDE 0.9% 50ML 50 ML IV SCH ×2 (14:20→21:51)
[2021-06-28 15:21] VITALS: BP 120/72
[2021-06-28 16:03] VITALS: BP 120/72
[2021-06-28] MEDS ORDERED: FUROSEMIDE 20 MG TAB PO SCH (18:00)
[2021-06-28 20:00] VITALS: BP 104/65
[2021-06-28] MEDS ORDERED: DOXYCYCLINE HYCLATE TABLET 100 MG TAB PO SCH (20:08)
[2021-06-28 20:12] VITALS: BP 104/65
[2021-06-28] MEDS: ATORVASTATIN 20 MG TAB PO SCH (20:26)
[2021-06-28] MEDS ORDERED: ACETAMINOPHEN 325 MG TAB PO PRN (21:00)
[2021-06-28] MEDS ORDERED: TRIMETHOPRIM/SULFAMETHOXAZOLE 160-800 MG TAB PO SCH (21:00)
[2021-06-28 21:02] LABS: CHOL/HDL RATIO 5.2 (3.9-4.7)
[2021-06-29] VITALS (8 sets, daily range): BP systolic 100–144; BP diastolic 58–80
[2021-06-29] MEDS: SODIUM CHLORIDE 0.9% 1000ML 1,000 ML IV SCH ×4 (04:40→23:56)
[2021-06-29 05:10] LABS: BASOPHILS # (AUTO) 0.1 (0.0-0.1); EOSINOPHILS # (AUTO) 0.5 (0.0-0.4); EOSINOPHILS % 7.7 % (0.0-6.0); HEMATOCRIT 35.9 % (38.2-49.6); HEMOGLOBIN 12.1 g/dL (14.0-18.0); LYMPHOCYTES # (AUTO) 1.4 (1.0-3.2); LYMPHOCYTES % 19.5 % (18.0-39.1); MEAN CORPUSCULAR HEMOGLOBIN 30.4 pg (28-32); MEAN CORPUSCULAR HGB CONC 33.7 g/dL (31-35); MEAN CORPUSCULAR VOLUME 90.2 fL (81-99); MONOCYTES # (AUTO) 0.5 (0.2-0.8); MONOCYTES % 7.4 % (4.4-11.3); NEUTROPHILS # (AUTO) 4.4 (2.1-6.9); NEUTROPHILS % 64.1 % (38.7-80.0); PLATELET COUNT 254 x10e3/uL (140-360); RED BLOOD COUNT 3.98 x10e6/uL (4.3-5.7); RED CELL DISTRIBUTION WIDTH 12.5 % (11.7-14.4)
[2021-06-29 05:40] LABS: ALBUMIN 3.2 g/dL (3.5-5.0); ALBUMIN/GLOBULIN RATIO 0.8 (0.8-2.0); ANION GAP 11.2 mmol/L (8-16); CREATININE, SERUM 1.46 mg/dL (0.72-1.25); POTASSIUM 4.2 mmol/L (3.5-5.1)
[2021-06-29] MEDS: PIPERACILLIN/TAZOBACTAM 3.375 GM in SODIUM CHLORIDE 0.9% 50ML 50 ML IV SCH ×3 (05:51→21:42)
[2021-06-29] MEDS: GLYBURIDE 2.5 MG TAB PO SCH (08:00)
[2021-06-29] MEDS: AMIODARONE HCL 200 MG TAB PO SCH (09:00)
[2021-06-29] MEDS: HEPARIN SOD (PORCINE) 5,000 UNIT/ML VIAL SC SCH ×2 (09:00→21:42)
[2021-06-29] MEDS: FUROSEMIDE 20 MG TAB PO SCH ×2 (09:00→17:00)
[2021-06-29] MEDS: ASPIRIN 81 MG ENTERIC COATED PO SCH (09:00)
[2021-06-29] MEDS: GABAPENTIN 100 MG CAP PO SCH (09:00)
[2021-06-29] MEDS: Vancomycin IV 1 GM in SODIUM CHLORIDE 0.9% 250ML 250 ML IV SCH ×2 (09:32→20:31)
[2021-06-29] MEDS: METOPROLOL SUCCINATE 25 MG TAB XL PO SCH (09:34)
[2021-06-29] MEDS ORDERED: LIDOCAINE HCL 2% LOCAL INJ 5 ML SDV VIAL INJ ONE (13:01)
[2021-06-29] MEDS ORDERED: POVIDONE IODINE 0.05% 0.05 % ML PO ONE (13:01)
[2021-06-29] MEDS ORDERED: PROPOFOL IV EMULSION 10 MG/ML 20 ML VIAL ONE (13:01)
[2021-06-29] MEDS ORDERED: ONDANSETRON HCL INJ 2MG/ML 2ML 2 MG/ML VIAL ONE (13:01)
[2021-06-29] MEDS ORDERED: SEVOFLURANE INHAL SOLN 250 ML PEN BTL ONE (13:01)
[2021-06-29] MEDS ORDERED: LIDOCAINE HCL 2% JELLY 5 ML TUBE ONE (13:01)
[2021-06-29] MEDS ORDERED: DEXAMETHASONE SOD PHOS INJ 4 MG/ML SDV ONE (13:01)
[2021-06-29] MEDS ORDERED: BUPIVACAINE HCL 0.5% INJ 30 ML VIAL INJ ONE (13:23)
[2021-06-29] MEDS ORDERED: PIPERACILLIN/TAZOBACTAM 3.375 GM VIAL ONE (13:33)
[2021-06-29] MEDS ORDERED: SODIUM CHLORIDE 0.9% 50ML 50 ML ONE (13:34)
[2021-06-29] MEDS ORDERED: MIDAZOLAM HCL 2 MG/2 ML VIAL ONE (13:37)
[2021-06-29] MEDS ORDERED: BACITRACIN ZINC 15 GM OINT ONE (14:08)
[2021-06-29] MEDS ORDERED: ACETAMINOPHEN/CODEINE 300MG - 30MG TAB PO PRN (14:15)
[2021-06-29] MEDS ORDERED: PROMETHAZINE HCL (IM) 25 MG/ML VIAL IM PRN (14:15)
[2021-06-29] MEDS: ATORVASTATIN 20 MG TAB PO SCH (20:31)
[2021-06-30] VITALS (8 sets, daily range): BP systolic 112–126; BP diastolic 61–79
[2021-06-30] MEDS: PIPERACILLIN/TAZOBACTAM 3.375 GM in SODIUM CHLORIDE 0.9% 50ML 50 ML IV SCH (05:35)
[2021-06-30] MEDS: FUROSEMIDE 20 MG TAB PO SCH ×2 (08:46→17:15)
[2021-06-30] MEDS: ASPIRIN 81 MG ENTERIC COATED PO SCH (08:46)
[2021-06-30] MEDS: GABAPENTIN 100 MG CAP PO SCH (08:46)
[2021-06-30] MEDS: Vancomycin IV 1 GM in SODIUM CHLORIDE 0.9% 250ML 250 ML IV SCH (08:46)
[2021-06-30] MEDS: METOPROLOL SUCCINATE 25 MG TAB XL PO SCH (08:46)
[2021-06-30] MEDS: AMIODARONE HCL 200 MG TAB PO SCH (08:46)
[2021-06-30] MEDS: GLYBURIDE 2.5 MG TAB PO SCH (08:46)
[2021-06-30] MEDS: HEPARIN SOD (PORCINE) 5,000 UNIT/ML VIAL SC SCH ×2 (08:47→20:30)
[2021-06-30 08:57] LABS: BASOPHILS % 0.3 % (0.0-1.0); EOSINOPHILS % 0.2 % (0.0-6.0); HEMATOCRIT 37.6 % (38.2-49.6); HEMOGLOBIN 12.8 g/dL (14.0-18.0); LYMPHOCYTES # (AUTO) 1.1 (1.0-3.2); LYMPHOCYTES % 11.8 % (18.0-39.1); MEAN CORPUSCULAR HEMOGLOBIN 29.9 pg (28-32); MEAN CORPUSCULAR VOLUME 87.9 fL (81-99); MONOCYTES # (AUTO) 0.5 (0.2-0.8); MONOCYTES % 4.7 % (4.4-11.3); NEUTROPHILS % 82.7 % (38.7-80.0); PLATELET COUNT 270 x10e3/uL (140-360); RED BLOOD COUNT 4.28 x10e6/uL (4.3-5.7); RED CELL DISTRIBUTION WIDTH 12.3 % (11.7-14.4)
[2021-06-30 09:28] LABS: ANION GAP 14.1 mmol/L (8-16); CALCIUM 9.3 mg/dL (8.4-10.2); CREATININE, SERUM 1.24 mg/dL (0.72-1.25); POTASSIUM 4.1 mmol/L (3.5-5.1)
[2021-06-30] MEDS: SODIUM CHLORIDE 0.9% 1000ML 1,000 ML IV SCH ×2 (11:53→18:40)
[2021-06-30] MEDS: Doxycycline IV 100 ML IV SCH (11:53)
[2021-06-30] MEDS: CIPROFLOXACIN 400 MG/D5W 200ML 200 ML IV SCH ×2 (11:53→23:52)
[2021-06-30] MEDS: ATORVASTATIN 20 MG TAB PO SCH (20:30)
[2021-07-01] MEDS: Doxycycline IV 100 ML IV SCH ×2 (00:45→12:03)
[2021-07-01] MEDS: SODIUM CHLORIDE 0.9% 1000ML 1,000 ML IV SCH ×3 (02:51→20:29)
[2021-07-01 04:25] VITALS: BP 118/69
[2021-07-01 07:55] VITALS: BP 136/73
[2021-07-01] MEDS: ASPIRIN 81 MG ENTERIC COATED PO SCH (08:49)
[2021-07-01] MEDS: GABAPENTIN 100 MG CAP PO SCH (08:49)
[2021-07-01] MEDS: FUROSEMIDE 20 MG TAB PO SCH ×2 (08:49→16:59)
[2021-07-01] MEDS: GLYBURIDE 2.5 MG TAB PO SCH (08:49)
[2021-07-01] MEDS: METOPROLOL SUCCINATE 25 MG TAB XL PO SCH (08:50)
[2021-07-01] MEDS: HEPARIN SOD (PORCINE) 5,000 UNIT/ML VIAL SC SCH ×2 (08:50→21:27)
[2021-07-01 11:47] VITALS: BP 121/76
[2021-07-01] MEDS: CIPROFLOXACIN 400 MG/D5W 200ML 200 ML IV SCH (12:03)
[2021-07-01 16:01] VITALS: BP 121/67
[2021-07-01 20:19] VITALS: BP 132/84
[2021-07-01] MEDS: ATORVASTATIN 20 MG TAB PO SCH (21:24)
[2021-07-01 21:30] VITALS: BP 132/84
[2021-07-02] MEDS: CIPROFLOXACIN 400 MG/D5W 200ML 200 ML IV SCH (00:03)
[2021-07-02 01:39] VITALS: BP 125/74
[2021-07-02 03:12] VITALS: BP 125/69
[2021-07-02] MEDS: Doxycycline IV 100 ML IV SCH (04:39)
[2021-07-02] MEDS: SODIUM CHLORIDE 0.9% 1000ML 1,000 ML IV SCH ×2 (04:40→11:15)
[2021-07-02] MEDS: GABAPENTIN 100 MG CAP PO SCH (07:53)
[2021-07-02] MEDS: GLYBURIDE 2.5 MG TAB PO SCH (07:53)
[2021-07-02] MEDS: FUROSEMIDE 20 MG TAB PO SCH (07:53)
[2021-07-02] MEDS: ASPIRIN 81 MG ENTERIC COATED PO SCH (07:53)
[2021-07-02] MEDS: METOPROLOL SUCCINATE 25 MG TAB XL PO SCH (07:54)
[2021-07-02] MEDS: HEPARIN SOD (PORCINE) 5,000 UNIT/ML VIAL SC SCH (07:55)
[2021-07-02 08:15] VITALS: BP 122/72
[2021-07-02 08:22] VITALS: BP 122/72
[2021-07-02] MEDS ORDERED: DOXYCYCLINE HY100 MG PO (08:30)
[2021-07-02] MEDS ORDERED: CIPROFLOXACIN500 MG PO (08:30)
[2021-07-02] MEDS ORDERED: ACETAMINOPHEN325 M1 PO (08:30)
[2021-07-02] MEDS ORDERED: TOPROL XL25 MG PO (08:30)
[2021-07-02] MEDS ORDERED: CIPROFLOXACIN 500 MG TAB PO SCH (12:00)
[2021-07-02] MEDS ORDERED: DOXYCYCLINE HYCLATE TABLET 100 MG TAB PO SCH (13:00)
== END 2021-07-02 11:49 | disposition home or self-care (01) | DRG 255 ==
LOC: ER 11:09 → ERHOLD 11:40 → IMCU 12:51
PROVIDERS: ADMIT Internal Medicine; ATTEND Internal Medicine
PROC: 0JBQ0ZZ Excision of Right Foot Subcutaneous Tissue and Fascia, Open Approach (ICD-10-PCS; 2021-06-29)
PROC: 0Y6T0Z0 Detachment at Right 3rd Toe, Complete, Open Approach (ICD-10-PCS; principal; 2021-06-29 12:30)
DX: E11.52 Type 2 diabetes mellitus with diabetic peripheral angiopathy with gangrene (principal); U07.1 COVID-19; I96 Gangrene, not elsewhere classified; I13.0 Hypertensive heart and chronic kidney disease with heart failure and stage 1 through stage 4 chronic kidney disease, or unspecified chronic kidney disease; I48.20 Chronic atrial fibrillation, unspecified; I50.22 Chronic systolic (congestive) heart failure; I25.10 Atherosclerotic heart disease of native coronary artery without angina pectoris; E11.621 Type 2 diabetes mellitus with foot ulcer; E11.22 Type 2 diabetes mellitus with diabetic chronic kidney disease; N18.30 Chronic kidney disease, stage 3 unspecified; E11.42 Type 2 diabetes mellitus with diabetic polyneuropathy; L97.514 Non-pressure chronic ulcer of other part of right foot with necrosis of bone; E11.65 Type 2 diabetes mellitus with hyperglycemia; I25.2 Old myocardial infarction; Z95.1 Presence of aortocoronary bypass graft; Z95.810 Presence of automatic (implantable) cardiac defibrillator; F10.20 Alcohol dependence, uncomplicated; Z87.891 Personal history of nicotine dependence; Z79.82 Long term (current) use of aspirin; Z79.84 Long term (current) use of oral hypoglycemic drugs
CPT/HCPCS: 36415; 80048; 80053; 80061; 80202; 82948; 83036; 85025; 85651; 86141; 88304; 88305; 88311; 93005; 94799; 96360; 99284; J1100; J1644; J2001; J2250; J2270; J2405; J2543; J3370; J7030; J7050; U0002

== ENCOUNTER 2021-08-16 10:56 | Emergency (ER) | payer MEDICARE ==
[~2021-08-16] VITALS: Ht 165.1 cm; Wt 88.9 kg
[~2021-08-16 10:56] MED LIST changes: +ACETAMINOPHEN325 M1 PO; +CIPROFLOXACIN500 MG PO; +TOPROL XL25 MG PO
== END 2021-08-16 12:43 | disposition home or self-care (01) ==
LOC: ER 11:10
DX: L72.3 Sebaceous cyst (principal); I10 Essential (primary) hypertension; E11.9 Type 2 diabetes mellitus without complications; I50.9 Heart failure, unspecified; I25.10 Atherosclerotic heart disease of native coronary artery without angina pectoris; I25.2 Old myocardial infarction; Z95.1 Presence of aortocoronary bypass graft
CPT/HCPCS: 99282

== ENCOUNTER 2024-09-13 10:53 | Inpatient (IN) | payer MEDICARE, OTHER ==
[~2024-09-13] VITALS: Ht 165.1 cm; Wt 88.0 kg
[~2024-09-13 10:53] MED LIST changes: +CEFUROXIME250 MG PO; +GLIPIZIDE ER5 MG PO; +GLUCOTROL XL2.5 MG PO; +LOSARTAN POTASS25 MG PO
[2024-09-13 10:59] VITALS: PULSE 89; RESP 17; TEMP 98.1
[2024-09-13 11:59] LABS: BASOPHILS # (AUTO) 0.1 (0.0-0.1); BASOPHILS % 0.7 % (0.0-1.0); EOSINOPHILS # (AUTO) 0.2 (0.0-0.4); EOSINOPHILS % 2.5 % (0.0-6.0); HEMATOCRIT 40.9 % (38.2-49.6); HEMOGLOBIN 14.3 g/dL (14.0-18.0); LYMPHOCYTES # (AUTO) 0.9 (1.0-3.2); LYMPHOCYTES % 12.2 % (18.0-39.1); MEAN CORPUSCULAR HEMOGLOBIN 31.4 pg (28-32); MEAN CORPUSCULAR VOLUME 89.9 fL (81-99); MONOCYTES # (AUTO) 0.4 (0.2-0.8); MONOCYTES % 5.3 % (4.4-11.3); NEUTROPHILS # (AUTO) 5.6 (2.1-6.9); PLATELET COUNT 226 x10e3/uL (140-360); RED BLOOD COUNT 4.55 x10e6/uL (4.3-5.7); RED CELL DISTRIBUTION WIDTH 13.4 % (11.7-14.4); WHITE BLOOD COUNT 7.11 x10e3/uL (4.8-10.8)
[2024-09-13] MEDS ORDERED: DEXTROSE 50% SYRINGE 50 ML IV PRN (12:00)
[2024-09-13] MEDS ORDERED: ONDANSETRON HCL INJ 2MG/ML 2ML 2 MG/ML VIAL IV PRN (12:00)
[2024-09-13 12:26] LABS: INR 1.01; PROTHROMBIN TIME 13.9 seconds (11.9-14.5)
[2024-09-13] MEDS: CEFEPIME 2 GM in SODIUM CHLORIDE 0.9% 100 ML IV ONE (12:32)
[2024-09-13] MEDS: SODIUM CHLORIDE 0.9% 1000ML 1,000 ML IV STA (12:32)
[2024-09-13] MEDS: ONDANSETRON HCL INJ 2MG/ML 2ML 2 MG/ML VIAL IV STA (12:33)
[2024-09-13] MEDS: Morphine 4mg INJECTION 4 MG/ML INJ IV STA (12:33)
[2024-09-13 12:36] LABS: ALBUMIN 3.2 g/dL (3.5-5.0); ALBUMIN/GLOBULIN RATIO 0.8 (0.8-2.0); ANION GAP 15.2 mmol/L (8-16); BILIRUBIN,TOTAL 0.9 mg/dL (0.2-1.2); CALCIUM 9.3 mg/dL (8.4-10.2); CREATININE, SERUM 1.15 mg/dL (0.72-1.25); MAGNESIUM 1.7 MG/DL (1.3-2.1); POTASSIUM 4.2 mmol/L (3.5-5.1); TOTAL PROTEIN 7.4 g/dL (6.5-8.1)
[2024-09-13] MEDS: VANCOMYCIN 1.25GM/250 ML (PEG) 250 ML IV ONE (12:36)
[2024-09-13 14:27] VITALS: BP 136/85; PULSE 79; RESP 19; TEMP 98.2; O2SAT 100
[2024-09-13] MEDS: INSULIN LISPRO 100 UNIT/1 ML 3ML VIAL SQ SCH (17:39)
[2024-09-13 20:00] VITALS: BP 137/90; PULSE 87; RESP 16; TEMP 97.7; O2SAT 95
[2024-09-13 20:34] VITALS: BP 137/90; PULSE 87; RESP 16; TEMP 97.7; O2SAT 95
[2024-09-13] MEDS: ATORVASTATIN 20 MG TAB PO SCH (21:35)
[2024-09-14] VITALS (7 sets, daily range): BP systolic 130–139; BP diastolic 72–90; PULSE 70–82; RESP 16–18; TEMP 97.7–98.4; O2SAT 96–100
[2024-09-14 05:56] LABS: BASOPHILS # (AUTO) 0.1 (0.0-0.1); BASOPHILS % 0.7 % (0.0-1.0); EOSINOPHILS # (AUTO) 0.3 (0.0-0.4); EOSINOPHILS % 4.2 % (0.0-6.0); HEMATOCRIT 37.4 % (38.2-49.6); LYMPHOCYTES # (AUTO) 0.8 (1.0-3.2); LYMPHOCYTES % 11.8 % (18.0-39.1); MEAN CORPUSCULAR HGB CONC 34.8 g/dL (31-35); MEAN CORPUSCULAR VOLUME 89.3 fL (81-99); MONOCYTES # (AUTO) 0.5 (0.2-0.8); MONOCYTES % 6.7 % (4.4-11.3); NEUTROPHILS # (AUTO) 5.1 (2.1-6.9); NEUTROPHILS % 76.3 % (38.7-80.0); PLATELET COUNT 212 x10e3/uL (140-360); RED BLOOD COUNT 4.19 x10e6/uL (4.3-5.7); RED CELL DISTRIBUTION WIDTH 13.5 % (11.7-14.4)
[2024-09-14 06:35] LABS: ALBUMIN/GLOBULIN RATIO 0.9 (0.8-2.0); ANION GAP 13.1 mmol/L (8-16); BILIRUBIN,TOTAL 0.9 mg/dL (0.2-1.2); CREATININE, SERUM 0.93 mg/dL (0.72-1.25); POTASSIUM 4.1 mmol/L (3.5-5.1); TOTAL PROTEIN 6.5 g/dL (6.5-8.1)
[2024-09-14] MEDS: GLIPIZIDE 2.5 MG TABCR PO SCH (09:04)
[2024-09-14] MEDS: LOSARTAN POTASSIUM 25 MG TAB PO SCH (09:04)
[2024-09-15] VITALS (7 sets, daily range): BP systolic 132–148; BP diastolic 81–93; PULSE 72–81; RESP 16–18; TEMP 97–98.1; O2SAT 94–100
[2024-09-15] MEDS: Vancomycin IV 1 GM in SODIUM CHLORIDE 0.9% 250ML 250 ML IV SCH (12:47)
[2024-09-15] MEDS: Morphine 4mg INJECTION 4 MG/ML INJ IV PRN (14:54)
[2024-09-15] MEDS: FAMOTIDINE 20 MG TAB PO SCH (21:05)
[2024-09-16] VITALS: BP_SYST 144; BP_SYST 158; BP_DIAS 74; BP_DIAS 93; PULSE 76; PULSE 79; RESP 18; RESP 20; TEMP 98; TEMP 98.6; O2SAT 100; O2SAT 97
[2024-09-16 04:00] VITALS: BP 147/86; PULSE 79; RESP 18; TEMP 98.1; O2SAT 100
[2024-09-16] MEDS ORDERED: PROPOFOL IV EMULSION 10 MG/ML 20 ML VIAL ONE ×2 (06:26→06:42)
[2024-09-16] MEDS ORDERED: LIDOCAINE HCL 2% LOCAL INJ 5 ML SDV VIAL INJ ONE ×2 (06:26→06:42)
[2024-09-16] MEDS ORDERED: FENTANYL CITRATE/PF 100MCG/2 ML INJ ONE ×2 (06:26→06:43)
[2024-09-16] MEDS ORDERED: SUCCINYLCHOLINE CHLORIDE 20 MG/ML 10ML VIAL ONE (06:28)
[2024-09-16] MEDS ORDERED: MIDAZOLAM HCL 2 MG/2 ML VIAL ONE (06:43)
[2024-09-16] MEDS ORDERED: PHENYLEPHRINE HCL 1% 10 MG/ML VIAL ONE (06:59)
[2024-09-16] MEDS ORDERED: KETAMINE HCL INJ 50 MG/ML 10 ML VIAL ONE (06:59)
[2024-09-16] MEDS ORDERED: KETOROLAC TROMETHAMINE 30 MG/ML VIAL ONE (06:59)
[2024-09-16] MEDS ORDERED: SODIUM CHLORIDE 0.9% 100 ML ONE (07:00)
[2024-09-16] MEDS ORDERED: HYDRALAZINE HCL 20 MG/ML VIAL ONE (07:26)
[2024-09-16 07:45] VITALS: BP 127/77; PULSE 84; RESP 16; TEMP 97.9; O2SAT 100
[2024-09-16 12:07] VITALS: BP 117/70; PULSE 81; RESP 19; TEMP 98.1; O2SAT 99
[2024-09-16 16:29] VITALS: BP 127/79; PULSE 72; RESP 18; TEMP 97.8; O2SAT 100
[2024-09-16 20:00] VITALS: BP 136/83; PULSE 74; RESP 16; TEMP 97.4; O2SAT 95
[2024-09-17] VITALS (8 sets, daily range): BP systolic 122–144; BP diastolic 73–89; PULSE 62–76; RESP 16–19; TEMP 97.5–98.1; O2SAT 95–100
[2024-09-17] MEDS: METOPROLOL SUCCINATE 25 MG TAB XL PO SCH (09:47)
[2024-09-17] MEDS: SODIUM CHLORIDE 0.9% 250ML 250 ML ONE ×2 (21:29→21:50)
[2024-09-18] VITALS (7 sets, daily range): BP systolic 122–147; BP diastolic 70–87; PULSE 62–75; RESP 18–20; TEMP 97.8–98.6; O2SAT 98–100
[2024-09-18] MEDS: METOPROLOL SUCCINATE 50 MG TAB XL PO SCH (09:35)
[2024-09-18] MEDS: Vancomycin IV 1 GM in SODIUM CHLORIDE 0.9% 250ML 250 ML IV SCH (12:30)
[2024-09-18] MEDS ORDERED: HYDROCODONE/APAP 7.5MG-325MG 1 EA TAB PO PRN (18:15)
[2024-09-19] VITALS (7 sets, daily range): BP systolic 119–147; BP diastolic 75–84; PULSE 66–74; RESP 17–20; TEMP 97.7–98.6; O2SAT 98–100
[2024-09-19] MEDS: LOSARTAN POTASSIUM 25 MG TAB PO SCH (08:50)
[2024-09-20] VITALS (8 sets, daily range): BP systolic 131–155; BP diastolic 77–96; PULSE 64–74; RESP 18–20; TEMP 97.5–98.2; O2SAT 97–100
[2024-09-21] VITALS (9 sets, daily range): BP systolic 98–151; BP diastolic 72–94; PULSE 62–76; RESP 18–20; TEMP 97.8–98.3; O2SAT 97–100
[2024-09-21] MEDS ORDERED: FAMOTIDINE20 MG PO (10:23)
[2024-09-21] MEDS ORDERED: COZAAR25 MG PO (10:23)
[2024-09-21] MEDS ORDERED: CEFEPIME 11 GM/50 ML IV (10:23)
[2024-09-21] MEDS ORDERED: TOPROL XL50 MG PO (10:24)
[2024-09-21] MEDS ORDERED: TYLENOL325 MG PO (10:26)
[2024-09-22 03:02] VITALS: BP 129/68; PULSE 71; RESP 17; TEMP 98.3; O2SAT 99
[2024-09-22 08:24] VITALS: BP 147/90; PULSE 68; RESP 19; TEMP 97; O2SAT 99
[2024-09-22 11:41] VITALS: BP 134/79; PULSE 64; RESP 20; TEMP 98; O2SAT 100
[2024-09-22] MEDS ORDERED: ONDANSETRON HCL 4 MG ORAL DISINTEGRATING TAB PO PRN (14:30)
[2024-09-22 16:26] VITALS: BP 124/77; PULSE 62; RESP 19; TEMP 97.7; O2SAT 100
== END 2024-09-22 16:35 | disposition home health service (06) | DRG 617 ==
LOC: ER 11:10 → ERHOLD 12:02 → MED/SURG2 14:45
PROVIDERS: ADMIT Internal Medicine; ATTEND Internal Medicine
PROC: 4B02XTZ Measurement of Cardiac Defibrillator, External Approach (ICD-10-PCS; 2024-09-14)
PROC: 0Y6P0Z1 Detachment at Right 1st Toe, High, Open Approach (ICD-10-PCS; 2024-09-16)
PROC: 02HV33Z Insertion of Infusion Device into Superior Vena Cava, Percutaneous Approach (ICD-10-PCS; principal; 2024-09-20)
PROC: B548ZZA Ultrasonography of Superior Vena Cava, Guidance (ICD-10-PCS; 2024-09-20)
DX: E11.69 Type 2 diabetes mellitus with other specified complication (principal); I50.22 Chronic systolic (congestive) heart failure; M86.171 Other acute osteomyelitis, right ankle and foot; L97.518 Non-pressure chronic ulcer of other part of right foot with other specified severity; E11.621 Type 2 diabetes mellitus with foot ulcer; L03.031 Cellulitis of right toe; E11.65 Type 2 diabetes mellitus with hyperglycemia; Z79.84 Long term (current) use of oral hypoglycemic drugs; I11.0 Hypertensive heart disease with heart failure; I25.10 Atherosclerotic heart disease of native coronary artery without angina pectoris; I25.2 Old myocardial infarction; B96.89 Other specified bacterial agents as the cause of diseases classified elsewhere; Z95.1 Presence of aortocoronary bypass graft; E11.42 Type 2 diabetes mellitus with diabetic polyneuropathy; E11.51 Type 2 diabetes mellitus with diabetic peripheral angiopathy without gangrene; Z89.421 Acquired absence of other right toe(s); Z45.02 Encounter for adjustment and management of automatic implantable cardiac defibrillator; Z53.29 Procedure and treatment not carried out because of patient's decision for other reasons; Z71.3 Dietary counseling and surveillance; Z68.32 Body mass index [BMI] 32.0-32.9, adult; Z71.81 Spiritual or religious counseling; Z89.432 Acquired absence of left foot; Z98.890 Other specified postprocedural states; Z79.899 Other long term (current) drug therapy
CPT/HCPCS: 36415; 36569; 71045; 80053; 80202; 82948; 83735; 85025; 85610; 85730; 87040; 87071; 87075; 87186; 87205; 88304; 88305; 88311; 93306; 99252; 99284; J0330; J0360; J0692; J1885; J2003; J2250; J2270; J2371; J2405; J7030; J7050